=== PATIENT | female | born 1985 | race Caucasian/White ===

== ENCOUNTER 2016-06-29 09:19 | Inpatient (IN) | payer OTHER ==
[~2016-06-29] VITALS: Ht 144.8 cm; Wt 80.9 kg
[~2016-06-29 09:19] MED LIST: CLON0.1T12 PO; FLUO20SO PO; LACT10SO30 PO; LAMO200T PO; LORA-741 PO; NLT50 PO; OLAN-102 PO; RANI300C PO; [UNRECOGNIZED DRUG - CODE] PO
[2016-06-29] MEDS ORDERED: ACETAMINOPHEN 500 MG TAB PO STA (09:37)
[2016-06-29] MEDS ORDERED: LORAZEPAM 1 MG TAB PO STA (09:37)
[2016-06-29] MEDS ORDERED: SODIUM CHLORIDE 0.9% 1000ML 1,000 ML IV ONE (09:45)
[2016-06-29] MEDS ORDERED: ZYP20 PO ×2 (09:53)
[2016-06-29] MEDS ORDERED: NLT50 PO (09:53)
[2016-06-29] MEDS ORDERED: KPP/1000 PO (09:53)
--- NOTE | 2016-06-29 10:22 | EMERGENCY ROOM VISIT NOTE ---
ED Visit Note First contact with patient: 09:27 I have seen and examined this patient with Eric Ling and generally agree with the treatment plan as discussed. Current/Historical Medications Scheduled Fluoxetine Hcl (Fluoxetine Hcl), 10 ML PO DAILY Lactulose (Encephalopathy) (Lactulose), 30 ML PO BID Lamotrigine (Lamictal), 400 MG PO BID Levetiracetam (Keppra), 250 MG PO BID Levetiracetam (Keppra), 1,000 MG PO BID Naltrexone HCl (Naltrexone HCl), 100 MG PO QAM Olanzapine (Zyprexa), 10 MG PO QAM Olanzapine (Zyprexa), 20 MG PO HS Ranitidine Hcl (Ranitidine Hcl), 300 MG PO BID Scheduled PRN Lorazepam (Ativan), 0.5 MG PO Q6H PRN for Anxiety/Agitation Allergies Coded Allergies: Carbamazepine (Verified Allergy, Unknown, unknown, 06/29/16) Amoxicillin (Verified Adverse Reaction, Intermediate, vomiting, 06/29/16) Clavulanic Acid (Verified Adverse Reaction, Intermediate, vomiting, ) Lacosamide (Verified Adverse Reaction, Intermediate, nausea, 06/29/16) Vital Signs Date Time Temp Pulse Resp B/P Pulse Ox O2 Delivery O2 Flow Rate FiO2 06/29/16 09:51 94 Room Air 06/29/16 09:30 107 32 125/78 95 Room Air 06/29/16 09:22 38.0 118 18 87 Room Air Laboratory Results Test 06/29/16 09:35 06/29/16 09:37 Influenza Type A Antigen Neg for Influ A (NEG) Influenza Type B Antigen Neg for Influ B (NEG) Medications Administered Medications (Trade) Dose Ordered Sig/Cristel Route Start Time Stop Time Status Last Admin Dose Admin Acetaminophen (Tylenol Tab) 1,000 mg NOW STAT PO 06/29/16 09:37 06/29/16 09:39 DC 06/29/16 09:43 1,000 MG Lorazepam (Ativan Tab) 1 mg NOW STAT PO 06/29/16 09:37 06/29/16 09:39 DC 06/29/16 09:42 1 MG Departure Information Referrals Breanna Mendoza DO (PCP) Patient Instructions A Signature Page, My [facility]
[2016-06-29 10:31] LABS: BASO % 0.1 %; BASO ABS # 0.02 K/uL (0-0.2); COMPLETE YES; HEMATOCRIT 40.8 % (37-47); IG% 0.4 %; LYMPH % 5.3 %; LYMPH ABS # 1.02 K/uL (1.2-3.4); MEAN CELL VOLUME 90.9 fL (80-100); MEAN CORPUSCULAR HEMOGLOBIN 31.6 pg (25-34); MEAN CORPUSCULAR HGB CONC 34.8 g/dl (32-36); MEAN PLATELET VOLUME 10.2 fL (7.4-10.4); MONO % 12.9 %; NEUT % 81.3 %; PLATELET COUNT 232 K/uL (130-400); RED BLOOD COUNT 4.49 M/uL (4.2-5.4); WHITE BLOOD COUNT 19.11 K/uL (4.8-10.8)
[2016-06-29] MEDS ORDERED: ALBUT/IPRATROP 3MG/0.5MG NEB 3 ML VIAL INH STA (10:32)
[2016-06-29 10:48] LABS: BUN/CREATININE RATIO 13.3 (10-20); CREATININE 0.67 mg/dl (0.60-1.20); POTASSIUM 3.8 mmol/L (3.5-5.1)
[2016-06-29 10:51] LABS: ALB/GLOB RATIO 0.6 (0.9-2)
[2016-06-29 10:58] VITALS: PULSE 101; O2SAT 92
[2016-06-29] MEDS ORDERED: LORAZEPAM 2 MG/ML 1 ML VIAL IV STA (12:11)
--- NOTE | 2016-06-29 13:24 | DIAGNOSTIC IMAGING REPORT ---
CHEST 2 VIEWS ROUTINE HISTORY: cough. Flu like. Fever COMPARISON: Chest 12/03/2013. FINDINGS: There are low lung volumes. The heart remains enlarged. S-shaped scoliosis of the thoracolumbar spine. No pneumothorax. No definite pleural effusions. Right greater than left perihilar airspace opacities. IMPRESSION: Low lung volumes with cardiomegaly and bilateral perihilar airspace opacities, right greater than left. This could represent asymmetric pulmonary edema or a pneumonia. Electronically signed by: Prasanna Reese M.D. 06/29/2016 1:23 PM
[2016-06-29] MEDS ORDERED: LEVAQUIN 500MG / 100ML D5W IV ONE (13:45)
--- NOTE | 2016-06-29 14:05 | EMERGENCY ROOM VISIT NOTE ---
History First contact with patient: :27 Chief Complaint: ILLNESS Stated Complaint: BREATHING PROBLEMS History of Present Illness The patient is a 31 year old female who presents to the Emergency Room with complaints of flulike symptoms for the past one to 2 days. The patient is accompanied by her father who is the primary historian as the patient is essentially nonverbal. The patient has a history of intracranial bleed and seizures in the past, and has baseline intellectual deficit. The patient has been running a low-grade fever over the past 24 hours. She has had some persistent coughing the past 2 nights, with last night being much worse than previous. The patient has been eating and drinking as normal. She has not been able to take her medication the past 24 hours because she has had emesis. She does not have known exposure to disease, and has not taken anything over-the -counter for her symptoms. Review of Systems More than 10 systems were reviewed and otherwise negative with the exception of history of present illness. Past Medical/Surgical History Medical Problems: (1) Calculus Of Kidney (2) Mental Retardation Nos (3) Severe Intellectual Disabilities Family History Unknown-adopted Social History Smoking Status: Never Smoker Alcohol Use: none Drug Use: none Marital Status: single Housing Status: lives with family Current/Historical Medications Scheduled Fluoxetine Hcl (Fluoxetine Hcl), 10 ML PO DAILY Lactulose (Encephalopathy) (Lactulose), 30 ML PO BID Lamotrigine (Lamictal), 400 MG PO BID Levetiracetam (Keppra), 250 MG PO BID Levetiracetam (Keppra), 1,000 MG PO BID Naltrexone HCl (Naltrexone HCl), 100 MG PO QAM Olanzapine (Zyprexa), 10 MG PO QAM Olanzapine (Zyprexa), 20 MG PO HS Ranitidine Hcl (Ranitidine Hcl), 300 MG PO BID Scheduled PRN Lorazepam (Ativan), 0.5 MG PO Q6H PRN for Anxiety/Agitation Allergies Coded Allergies: Carbamazepine (Verified Allergy, Unknown, unknown, 06/29/16) Amoxicillin (Verified Adverse Reaction, Intermediate, vomiting, 06/29/16) Clavulanic Acid (Verified Adverse Reaction, Intermediate, vomiting, ) Lacosamide (Verified Adverse Reaction, Intermediate, nausea, 06/29/16) Physical Exam Vital Signs Date Time Temp Pulse Resp B/P Pulse Ox O2 Delivery O2 Flow Rate FiO2 12/29/16 13:15 112 20 131/72 93 Room Air 06/29/16 11:30 119 92 126/65 92 Room Air 06/29/16 10:58 101 20 92 Room Air 06/29/16 09:51 94 Room Air 06/29/16 09:30 107 32 125/78 95 Room Air 06/29/16 09:22 38.0 118 18 87 Room Air Physical Exam VITALS: Vitals are noted on the nurse's note and reviewed by myself. Vital signs with low-grade fever and tachypnea GENERAL: Fairly comfortable-appearing white female lying in her emergency department bed. She does not appear toxic or in acute distress. HEAD: Normocephalic atraumatic. HEART: Regular rate and rhythm without murmurs gallops or rubs. LUNGS: Clear to auscultation bilaterally without wheezes, rales or rhonchi. No retractions or accessory muscle use. ABDOMEN: Positive normal bowel sounds x 4. Soft, nontender, without masses or organomegaly. No guarding or rebound tenderness. MUSCULOSKELETAL: No muscle atrophy, erythema, or edema noted. Full range of motion without joint tenderness in all extremities. SKIN: The skin was without rashes, erythema, edema, or bruising. Capillary reflex less than 2 seconds. Medical Decision & Procedures ER Provider Diagnostic Interpretation: CHEST 2 VIEWS ROUTINE HISTORY: cough. Flu like. Fever COMPARISON: Chest 12/03/2013. FINDINGS: There are low lung volumes. The heart remains enlarged. S-shaped scoliosis of the thoracolumbar spine. No pneumothorax. No definite pleural effusions. Right greater than left perihilar airspace opacities. IMPRESSION: Low lung volumes with cardiomegaly and bilateral perihilar airspace opacities, right greater than left. This could represent asymmetric pulmonary edema or a pneumonia. Laboratory Results 06/29/16 10:07 Red Blood Count 4.49, Mean Corpuscular Volume 90.9, Mean Corpuscular Hemoglobin 31.6, Mean Corpuscular Hemoglobin Concent 34.8, Mean Platelet Volume 10.2, Neutrophils (%) (Auto) 81.3, Lymphocytes (%) (Auto) 5.3, Monocytes (%) (Auto) 12.9, Eosinophils (%) (Auto) 0.0, Basophils (%) (Auto) 0.1, Neutrophils # (Auto ) 15.53, Lymphocytes # (Auto) 1.02, Monocytes # (Auto) 2.46, Eosinophils # (Auto ) 0.00, Basophils # (Auto) 0.02 06/29/16 10:07 Test 06/29/16 09:35 06/29/16 10:07 06/29/16 10:08 Influenza Type A Antigen Neg for Influ A (NEG) Influenza Type B Antigen Neg for Influ B (NEG) White Blood Count 19.11 K/uL (4.8-10.8) Red Blood Count 4.49 M/uL (4.2-5.4) Hemoglobin 14.2 g/dL (12.0-16.0) Hematocrit 40.8 % (37-47) Mean Corpuscular Volume 90.9 fL (80-100) Mean Corpuscular Hemoglobin 31.6 pg (25-34) Mean Corpuscular Hemoglobin Concent 34.8 g/dl (32-36) Platelet Count 232 K/uL (130-400) Mean Platelet Volume 10.2 fL (7.4-10.4) Neutrophils (%) (Auto) 81.3 % Lymphocytes (%) (Auto) 5.3 % Monocytes (%) (Auto) 12.9 % Eosinophils (%) (Auto) 0.0 % Basophils (%) (Auto) 0.1 % Neutrophils # (Auto) 15.53 K/uL (1.4-6.5) Lymphocytes # (Auto) 1.02 K/uL (1.2-3.4) Monocytes # (Auto) 2.46 K/uL (0.11-0.59) Eosinophils # (Auto) 0.00 K/uL (0-0.5) Basophils # (Auto) 0.02 K/uL (0-0.2) RDW Standard Deviation 40.6 fL (36.4-46.3) RDW Coefficient of Variation 12.2 % (11.5-14.5) Immature Granulocyte % (Auto) 0.4 % Immature Granulocyte # (Auto) 0.08 K/uL (0.00-0.02) Anion Gap 8.0 mmol/L (3-11) Est Creatinine Clear Calc Drug Dose 107.6 ml/min Estimated GFR () 136.7 Estimated GFR (Non- 118.0 BUN/Creatinine Ratio 13.3 (10-20) Calcium Level 9.0 mg/dl (8.5-10.1) Total Bilirubin 0.3 mg/dl (0.2-1) Aspartate Amino Transf (AST/SGOT) 20 U/L (15-37) Alanine Aminotransferase (ALT/SGPT) 37 U/L (12-78) Alkaline Phosphatase 102 U/L (45-117) Total Protein 7.8 gm/dl (6.4-8.2) Albumin 3.0 gm/dl (3.4-5.0) Globulin 4.8 gm/dl (2.5-4.0) Albumin/Globulin Ratio 0.6 (0.9-2) Bedside Lactic Acid Venous 1.12 mmol/L (0.90-1.70) Medications Administered Medications (Trade) Dose Ordered Sig/Cristel Route Start Time Stop Time Status Last Admin Dose Admin Acetaminophen (Tylenol Tab) 1,000 mg NOW STAT PO 06/29/16 09:37 06/29/16 09:39 DC 06/29/16 09:43 1,000 MG Lorazepam 1 mg 1 mg NOW STAT PO 06/29/16 09:37 06/29/16 09:39 DC 06/29/16 09:42 1 MG Sodium Chloride (Nss 1000ml) 1,000 ml @ 999 mls/hr Q1H1M ONCE IV 06/29/16 09:45 06/29/16 10:45 DC 06/29/16 09:45 999 MLS/HR Albuterol/ Ipratropium (Duoneb) 12 ml ONE STAT INH 06/29/16 10:32 06/29/16 10:33 DC 06/29/16 10:58 12 ML Lorazepam (Ativan Inj) 1 mg NOW STAT IV 06/29/16 12:11 06/29/16 12:12 DC 06/29/16 12:22 1 MG Levofloxacin (Levaquin / D5W) 500 mg NOW ONCE IV 06/29/16 13:45 06/29/16 13:46 DC 06/29/16 13:41 500 MG ED Course Physical exam and history were performed. Nursing notes and EMR were reviewed. Patient appears to have fever and tachypnea. He does not appear overtly toxic on examination, but does not appear well either. She has limited intellectual function, and much of the history is provided by the family. Because of the history of IV access was established and labs were obtained. The patient was medicated and hydrated as above. I did give her Ativan prior to the blood draw and then also prior to her x-ray. The patient was able to complete a DuoNeb. The patient's blood work is as above and was reviewed. It has a markedly elevated white blood cell count of 19,000. She does not have an elevated lactic acid and blood cultures are pending. She is without significant anemia or gross electrolyte imbalance. Influenza swabs were negative. X-ray shows what may be a pneumonia, however the study is somewhat limited secondary to the patient's cooperation. She was started on IV Levaquin. The case was discussed with my attending physician, Dr. Shaw, who also independently evaluated the patient. Considering the patient has a markedly elevated white blood cell count, possible pneumonia, and baseline MHMR there is very significant concern for service/sepsis. She also has been saturating less than 90% on room air. She is much more comfortable after treatment on reevaluation, and was able to sleep comfortably in her ER bed. The patient does not appear stable for discharge home. The case was discussed with the on-call hospitalist, who agreed to evaluate the patient here in the department. Please see their dictation for further patient course, plan, and disposition. The chart was completed utilizing [employer] Speech Voice Recognition Software. Grammatical errors, random word insertions, pronoun errors, and incomplete sentences are an occasional consequence of this system due to software limitations, ambient noise, and hardware issues. Any formal questions or concerns about the content, text, or information contained within the body of this dictation should be directly addressed to the provider for clarification. . Medical Decision Differential diagnosis: Etiologies such as infections, reactive airway disease, pneumonia, pneumothorax , COPD, CHF, cardiac ischemia, pulmonary embolism, musculoskeletal, gastrointestinal, as well as others were entertained. Impression Primary Impression: SIRS (systemic inflammatory response syndrome) Additional Impression: Shortness of breath Departure Information Referrals Breanna Mendoza DO (PCP) Patient Instructions A Signature Page, My [facility]
[2016-06-29 14:32] VITALS: O2SAT 93; Ht 144.8 cm; Wt 80.9 kg
[2016-06-29] MEDS ORDERED: POLYETHYLENE (MIRALAX) 17 GM PACK PO PRN (14:45)
[2016-06-29] MEDS ORDERED: ONDANSETRON INJ 2 MG/ML 2 ML VIAL IV PRN (14:45)
[2016-06-29] MEDS ORDERED: ALUMINUM/MAGNESIUM/SIMETH (MAALOX MAX) 30 ML UDC PO PRN (14:45)
[2016-06-29] MEDS ORDERED: ACETAMINOPHEN IV 100 ML IV PRN (14:45)
[2016-06-29] MEDS ORDERED: MAGNESIUM HYDROXIDE SUSP 30 ML UDC PO PRN (14:45)
[2016-06-29] MEDS ORDERED: LORAZEPAM 2 MG/ML 1 ML VIAL IV PRN (15:15)
--- NOTE | 2016-06-29 15:36 | History and Physical ---
History & Physical Date & Time of Service: Jun 29, 2016 at 15:07 Chief Complaint: Breathing Problems Primary Care Physician: Breanna Mendoza DO History of Present Illness Source: parent, clinic records Ms. Sunshine is a 31 y/o non-verbal female with PMHx of Mental Retardation, Seizure Disorder, Traumatic Intracranial Bleed (2013), and Scoliosis who presents to the ED for complaints of flu-like symptoms and fever x 2 days. HPI solely obtained from father as patient is non-verbal. He states that this was a quick onset. Patient initially had nasal congestion and they thought she was developing a cold and used Mucinex that did not give relief. She started sounding more congested and lethargic. She has been diaphoretic with low-grade fevers at home. She has an associate cough that sounds productive however patient's coughing effort is poor and has not coughed much mucus out. She had intermittent episodes of brown colored nasal secretions and sputum. She has been eating and drinking okay last night. She was able to take her medications yesterday without any problems. She did have an episode of emesis this morning after trying to take her seizure medications. Per family she has had a seizure after missing doses in the past for illness. Last seizure possible in May but family says it is rare that these occur. Patient is incontinent of urine and feces. They do not recall sick contacts. In the ED, she was given a Duoneb treatment, hydrated with NSS 1 L bolus, and started on Levaquin 500 mg IV. Family reports that the breathing treatment appears to have broken up the congestion in her chest. She was medicated with IV Ativan is currently sedated however respirations adequate and airway remains intact. She will be admitted to the Med/Surg floor treatment of possible CAP. *Of note patient will need 1:1 observation due to confusion and delirium. She is ambulatory with assistance but has balance deficits. She requires assistance with ADLs. Oral pills need crushed and mixed in applesauce. Diet is regular with normal liquid consistency and uses straws. Social History Smoking Status: Never Smoker Drug Use: none Marital Status: single Housing status: lives with family Immunizations History of Influenza Vaccine: No History of Tetanus Vaccine?: Yes History of Pneumococcal: No History of Hepatitis B Vaccine: Unknown Multi-Drug Resistant Organisms History of MDRO: No Allergies Coded Allergies: Carbamazepine (Verified Allergy, Unknown, unknown, 06/29/16) Amoxicillin (Verified Adverse Reaction, Intermediate, vomiting, 06/29/16) Clavulanic Acid (Verified Adverse Reaction, Intermediate, vomiting, ) Lacosamide (Verified Adverse Reaction, Intermediate, nausea, 06/29/16) Home Medications Scheduled Fluoxetine Hcl (Fluoxetine Hcl), 10 ML PO DAILY Lactulose (Encephalopathy) (Lactulose), 30 ML PO BID Lamotrigine (Lamictal), 400 MG PO BID Levetiracetam (Keppra), 250 MG PO BID Levetiracetam (Keppra), 1,000 MG PO BID Naltrexone HCl (Naltrexone HCl), 100 MG PO QAM Olanzapine (Zyprexa), 10 MG PO QAM Olanzapine (Zyprexa), 20 MG PO HS Ranitidine Hcl (Ranitidine Hcl), 300 MG PO BID Scheduled PRN Lorazepam (Ativan), 0.5 MG PO Q6H PRN for Anxiety/Agitation Review of Systems ROS deferred as patient is non-verbal. Physical Exam Vital Signs Date Time Temp Pulse Resp B/P Pulse Ox O2 Delivery O2 Flow Rate FiO2 06/29/16 14:32 93 Room Air 06/29/16 13:15 112 20 131/72 93 Room Air 06/29/16 11:30 119 92 126/65 92 Room Air 06/29/16 10:58 101 20 92 Room Air 06/29/16 09:51 94 Room Air 06/29/16 09:30 107 32 125/78 95 Room Air 06/29/16 09:22 38.0 118 18 87 Room Air General Appearance: WD/WN, no apparent distress, + pertinent finding (sedated 2 /2 Ativan; harsh sounding respirations; leaning to R side 2/2 scoliosis; diaphoretic) Head: normocephalic, atraumatic Eyes: sclerae normal Neck: supple, no JVD, trachea midline Respiratory/Chest: no respiratory distress, no accessory muscle use, + decreased breath sounds, + rhonchi, + pertinent finding (audible rhonchi) Cardiovascular: regular rate, rhythm, + pertinent finding (unable to appreciate murmurs in setting of harsh respiratory sounds) Abdomen/GI: normal bowel sounds, soft Back: + pertinent finding (S shaped curvature of thoracic spine) Extremities/Musculoskelatal: normal inspection, normal capillary refill, no pedal edema Neurologic/Psych: + pertinent finding (sedated 2/2 Ativan) Skin: normal color, + diaphoresis Diagnostics Laboratory Results Results Past 24 Hours Test 06/29/16 09:35 06/29/16 10:07 06/29/16 10:08 Range/Units Influenza Type A Antigen Neg for Influ A NEG Influenza Type B Antigen Neg for Influ B NEG White Blood Count 19.11 4.8-10.8 K/uL Red Blood Count 4.49 4.2-5.4 M/uL Hemoglobin 14.2 12.0-16.0 g/dL Hematocrit 40.8 37-47 % Mean Corpuscular Volume 90.9 80-100 fL Mean Corpuscular Hemoglobin 31.6 25-34 pg Mean Corpuscular Hemoglobin Concent 34.8 32-36 g/dl Platelet Count 232 130-400 K/uL Mean Platelet Volume 10.2 7.4-10.4 fL Neutrophils (%) (Auto) 81.3 % Lymphocytes (%) (Auto) 5.3 % Monocytes (%) (Auto) 12.9 % Eosinophils (%) (Auto) 0.0 % Basophils (%) (Auto) 0.1 % Neutrophils # (Auto) 15.53 1.4-6.5 K/uL Lymphocytes # (Auto) 1.02 1.2-3.4 K/uL Monocytes # (Auto) 2.46 0.11-0.59 K/uL Eosinophils # (Auto) 0.00 0-0.5 K/uL Basophils # (Auto) 0.02 0-0.2 K/uL RDW Standard Deviation 40.6 36.4-46.3 fL RDW Coefficient of Variation 12.2 11.5-14.5 % Immature Granulocyte % (Auto) 0.4 % Immature Granulocyte # (Auto) 0.08 0.00-0.02 K/uL Sodium Level 138 136-145 mmol/L Potassium Level 3.8 3.5-5.1 mmol/L Chloride Level 102 98-107 mmol/L Carbon Dioxide Level 28 21-32 mmol/L Anion Gap 8.0 3-11 mmol/L Blood Urea Nitrogen 9 7-18 mg/dl Creatinine 0.67 0.60-1.20 mg/dl Est Creatinine Clear Calc Drug Dose 107.6 ml/min Estimated GFR () 136.7 Estimated GFR (Non- 118.0 BUN/Creatinine Ratio 13.3 10-20 Random Glucose 107 70-99 mg/dl Calcium Level 9.0 8.5-10.1 mg/dl Total Bilirubin 0.3 0.2-1 mg/dl Aspartate Amino Transf (AST/SGOT) 20 15-37 U/L Alanine Aminotransferase (ALT/SGPT) 37 12-78 U/L Alkaline Phosphatase 102 45-117 U/L Total Protein 7.8 6.4-8.2 gm/dl Albumin 3.0 3.4-5.0 gm/dl Globulin 4.8 2.5-4.0 gm/dl Albumin/Globulin Ratio 0.6 0.9-2 Bedside Lactic Acid Venous 1.12 0.90-1.70 mmol/L Microbiology Results 06/29/16 Blood Culture, Received Pending 06/29/16 Blood Culture, Received Pending Diagnostic Radiology CHEST 2 VIEWS ROUTINE HISTORY: cough. Flu like. Fever COMPARISON: Chest 12/03/2013. FINDINGS: There are low lung volumes. The heart remains enlarged. S-shaped scoliosis of the thoracolumbar spine. No pneumothorax. No definite pleural effusions. Right greater than left perihilar airspace opacities. IMPRESSION: Low lung volumes with cardiomegaly and bilateral perihilar airspace opacities, right greater than left. This could represent asymmetric pulmonary edema or a pneumonia. Electronically signed by: Prasanna Reese M.D. 06/29/2016 1:23 PM Impression Assessment and Plan Ms. Sunshine is a 31 y/o non-verbal female with PMHx of Mental Retardation, Seizure Disorder, Traumatic Intracranial Bleed (2013), and Scoliosis who presents to the ED for complaints of flu-like symptoms and fever x 2 days. In the ED, she was given a Duoneb treatment, hydrated with NSS 1 L bolus, and started on Levaquin 500 mg IV. Family reports that the breathing treatment appears to have broken up the congestion in her chest. She was medicated with IV Ativan is currently sedated however respirations adequate and airway remains intact. She will be admitted to the Med/Surg floor treatment of possible CAP. SIRS - Possible CAP have not Ruled Out UTI: - CXR - image and report reviewed - cardiomegaly; bilateral perihilar opacities R > L - pulmonary edema vs pneumonia - Levaquin 500 mg IV in ED - will start Levaquin 750 mg IV on 06/30/16 - Tylenol 1000 mg IV Q8H PRN - NSS 100 mL/hr - Duonebs QID and Q2H PRN - U/A and culture - CBC, BMP, Mag - trend leukocytosis and electrolytes Seizure Disorder: - Seizure precautions - Patient without medications this AM - will give partial dose now - Keppra IV 1000 mg x 1 dose as patient is sedated from Ativan - Will resume po Keppra 1250 mg BID starting at 2100 this evening if more alert - Lamictal 400 mg BID Mental Retardation: - 1:1 observation - Lorazepam 0.5 mg Q4H PRN - Fluoxetine Soln 20 mg/5 mL - 10 mL - Naltrexone 100 mg daily - Zyprexa 10 mg AM and 20 mg PM DVT Prophylaxis: - Lovenox 40 mg SC Code Status: - FULL RESUSCITATION PA Physician Supervision Note: I interviewed and examined the patient. Discussed with Chitra Ernst PAC and agree with findings and plan as documented in the note. Any exceptions or clarifications are listed here: None Pt is sedate from ativan but usually non verbal has SIRS like presentation presumedly from RLL pneumonia exam shows right lung crackles but not great effort due to sedation Will treat SIRS pneumonia, levaquin, also test urine as is incontinent and wears adult diaper did not get antiepileptic meds, due to vomiting, will attempt to give "catch up "dose to prevent seizure. Documented By: Riccardo Martinez Level of Care Med/Surg Advanced Directives Existing Advance Directive: No Existing Living Will: No Existing Power of Rn Lpn Lvn: No Resuscitation Status FULL RESUSCITATION VTE Prophylaxis VTE Risk Assessment Done? Y/N: Yes Risk Level: Moderate Given or contraindicated: Enoxaparin (Lovenox)SQ, T.E.D. Stockings, SCD's
[2016-06-29] MEDS: ALBUT/IPRATROP 3MG/0.5MG NEB 3 ML VIAL INH SCH (16:00)
[2016-06-29] MEDS ORDERED: LEVETIRACETAM IV 1,000 MG in DEXTROSE 5% 100ML 100 ML IV SCH (16:00)
[2016-06-29] MEDS: SODIUM CHLORIDE 0.9% 1000ML 1,000 ML IV SCH (16:24)
[2016-06-29 16:29] VITALS: BP 140/65; PULSE 115; TEMP 36.7; O2SAT 95
[2016-06-29] MEDS ORDERED: LORAZEPAM INJ 0.5 MG in SYRINGE 0.75 ML IV PRN (16:30)
[2016-06-29 17:02] LABS: PARTIAL THROMBOPLASTIN RATIO 1.5; PROTHROMBIN TIME (PATIENT) 11.2 SECONDS (9.0-12.0)
[2016-06-29] MEDS: OLANZAPINE 20 MG TAB PO SCH (20:49)
[2016-06-29] MEDS: LEVETIRACETAM 250 MG TAB PO SCH (20:49)
[2016-06-29] MEDS: LACTULOSE SYRUP 20 GM/30 ML UDC PO SCH (20:49)
[2016-06-29] MEDS: LEVETIRACETAM 500 MG TAB PO SCH (20:49)
[2016-06-29 21:30] VITALS: PULSE 102; O2SAT 94
[2016-06-29] MEDS: LORAZEPAM 0.5 MG TAB PO PRN (22:39)
[2016-06-29] MEDS: ENOXAPARIN 40 MG/0.4 ML SYR SQ SCH (22:40)
[2016-06-29 22:53] VITALS: BP 122/78; PULSE 235; TEMP 38; O2SAT 90
[2016-06-30] VITALS (7 sets, daily range): BP systolic 124–132; BP diastolic 78–83; PULSE 93–106; TEMP 36.2–37.4; O2SAT 82–92
[2016-06-30] MEDS: SODIUM CHLORIDE 0.9% 1000ML 1,000 ML IV SCH ×3 (01:51→20:45)
[2016-06-30 05:50] LABS: BASO % 0.3 %; BASO ABS # 0.04 K/uL (0-0.2); COMPLETE YES; HEMATOCRIT 39.7 % (37-47); IG% 0.8 %; LYMPH % 13.7 %; LYMPH ABS # 1.72 K/uL (1.2-3.4); MEAN CELL VOLUME 91.9 fL (80-100); MEAN CORPUSCULAR HEMOGLOBIN 31.7 pg (25-34); MEAN CORPUSCULAR HGB CONC 34.5 g/dl (32-36); MEAN PLATELET VOLUME 10.2 fL (7.4-10.4); NEUT % 70.2 %; PLATELET COUNT 202 K/uL (130-400); RED BLOOD COUNT 4.32 M/uL (4.2-5.4); WHITE BLOOD COUNT 12.54 K/uL (4.8-10.8)
[2016-06-30 06:10] LABS: BUN/CREATININE RATIO 11.6 (10-20); CALCIUM 7.9 mg/dl (8.5-10.1); CREATININE 0.58 mg/dl (0.60-1.20); MAGNESIUM 2.4 mg/dl (1.8-2.4); POTASSIUM 3.5 mmol/L (3.5-5.1)
[2016-06-30] MEDS: ALBUT/IPRATROP 3MG/0.5MG NEB 3 ML VIAL INH SCH ×4 (07:10→19:41)
[2016-06-30] MEDS: OLANZAPINE 20 MG TAB PO SCH ×2 (07:23→20:03)
[2016-06-30] MEDS: LACTULOSE SYRUP 20 GM/30 ML UDC PO SCH ×2 (07:23→20:00)
[2016-06-30] MEDS: LEVETIRACETAM 500 MG TAB PO SCH ×2 (07:23→20:03)
[2016-06-30] MEDS: NALTREXONE HCL 50 MG TAB PO SCH (07:24)
[2016-06-30] MEDS: LEVETIRACETAM 250 MG TAB PO SCH ×2 (07:24→20:03)
[2016-06-30] MEDS: FLUOXETINE HCL 20 MG/5 ML PO SCH (07:24)
[2016-06-30] MEDS: CLINDAMYCIN IV 600 MG in DEXTROSE 5% ADD-VANTAGE 50ML 50 ML IV SCH ×2 (08:39→17:02)
--- NOTE | 2016-06-30 09:40 | Clinical Documentation Query ---
ADELE Rutherford : CLINICAL DOCUMENTATION QUERIES QUERY 1 OF 3 Patient is a 31 year old female admitted with pneumonia. Documentation includes a history of mental retardation and coughing/choking with oral intake. She is being treated with IV Clindamycin and Levaquin, speech evaluation, aspiration precautions, 1:1 observation In your clinical opinion is this patient being managed for: (x ) Aspiration pneumonia ( ) Other explanation of clinical findings (Please Explain) ( ) Unable to determine (Please Define) ( ) Need to Discuss ( ) Not Agree The medical record reflects the following clinical findings, treatment, and risk factors. Clinical Indicators: Coughing/choking on dinner, mental retardation Treatment: Clindamycin, Levaquin, Speech evaluation, Aspiration precautions, 1:1 observation, requires feeding. Risk Factors: Mental retardation, non-verbal, unable to self feed. QUERY 2 OF 3 Documentation includes "mental retardation". Please qualify as able as this may affect severity of illness, associated risk of mortality, and ultimately DRG assignment. Thank you. In your clinical opinion is this patient being managed for: ( ) Mild mental retardation ( ) Moderate mental retardation ( ) Severe mental retardation ( ) Profound mental retardation ( ) Other explanation of clinical findings (Please Explain) ( ) Unable to determine (Please Define) ( ) Need to Discuss ( ) Not Agree The medical record reflects the following clinical findings, treatment, and risk factors. Clinical Indicators: As above Treatment: 1:1 observation, aspiration/fall precautions, feed Risk Factors: Congenital QUERY 3 OF 3 This is for informational/educational purposes Documentation includes "SIRS-Possible CAP have not ruled out UTI". ICD-10 coding does no longer recognizes SIRS due to an infectious source. Previously, this was essentially synonymous with sepsis but this is no longer the case. This information is simply to make you, the provider, aware that SIRS (de to any infectious source) is not amenable to indexing from the tabular list and therefore will not be coded. Please clarify and document your clinical opinion in the progress notes and discharge summary. Terms such as "probable", "suspected", "likely", "questionable", "possible", or "still to be ruled out" are acceptable. IF IN AGREEMENT, YOU MUST DOCUMENT ABOVE DIAGNOSTIC STATEMENT IN DAILY PROGRESS NOTES AND DISCHARGE SUMMARY. This document is not part of the patient's record. Thank You, Berhane Vargas, [place] [phone]
--- NOTE | 2016-06-30 11:23 | Progress Note ---
Subjective Date of Service: Jun 30, 2016. Subjective Pt evaluation today including: conversation w/ patient, conversation w/ family , chart review, lab review, review of studies, review of inpatient medication list Pain: none PO Intake: well Voiding: no voiding problems seen and examined , sleepy , arousabel mother at bed site who helps out to provide most of the informations as pat sleepy and not providing much, denied any pain, still has some cough, as per mother she did not see any aspiration issues but not sure,, on IVF and IV Abx Problem List Medical Problems: (1) Shortness of breath Status: Acute (2) SIRS (systemic inflammatory response syndrome) Status: Acute Review of Systems Constitutional: No chills, No fatigue, No fever, No problem reported, No see HPI, No sweats, No weakness, No weight loss Eyes: No diplopia, No discharge, No eye pain, No problem reported, No redness, No see HPI, No worsening of vision ENT: No dental problems, No hearing loss, No nasal symptoms, No problem reported, No see HPI, No sore throat, No tinnitus, No trouble swallowing, No unusual epistaxis Respiratory: + cough Cardiac: No PND, No chest pain, No claudication, No edema, No orthopnea, No palpitations, No problem reported, No see HPI Abdomen: No GI bleeding, No constipation, No diarrhea, No nausea, No pain, No problem reported, No see HPI, No vomiting Musculoskeletal: No calf pain, No joint pain, No muscle pain, No problem reported, No see HPI, No swelling Neurologic: No balance problems, No memory loss, No numbness/tingling, No paralysis, No problem reported, No see HPI, No vertigo, No weakness Medications Current Inpatient Medications Medications (Trade) Dose Ordered Sig/Cristel Route Start Time Stop Time Status Last Admin Dose Admin Enoxaparin Sodium (Lovenox Inj) 40 mg QPM SQ 06/29/16 21:00 07/29/16 20:59 06/29/16 22:40 40 MG Al Hydrox/Mg Hydrox/Simethicone (Maalox Max Susp) 15 ml Q4H PRN PO 06/29/16 14:45 07/29/16 14:44 Magnesium Hydroxide (Milk Of Magnesia Susp) 30 ml Q6H PRN PO 06/29/16 14:45 07/29/16 14:44 Polyethylene (Miralax Powder Packet) 17 gm DAILY PRN PO 06/29/16 14:45 07/29/16 14:44 Ondansetron HCl 4 mg 4 mg Q6H PRN IV 06/29/16 14:45 07/29/16 14:44 Levofloxacin 750 mg/Prmx 150 ml @ 100 mls/hr DAILY@1400 IV 06/30/16 14:00 07/08/16 15:29 Acetaminophen 100 ml @ 400 mls/hr Q8H PRN IV 06/29/16 14:45 07/29/16 14:44 06/29/16 22:39 400 MLS/HR Sodium Chloride (Nss 1000ml) 1,000 ml @ 100 mls/hr Q10H IV 06/29/16 14:45 07/29/16 14:44 06/30/16 08:40 100 MLS/HR Albuterol/ Ipratropium (Duoneb) 3 ml QIDR INH 06/29/16 16:00 07/29/16 15:59 06/30/16 11:03 3 ML Levetiracetam (Keppra Tab) 1,000 mg BID PO 06/29/16 20:00 07/29/16 20:59 06/30/16 07:23 1,000 MG Levetiracetam (Keppra Tab) 250 mg BID PO 06/29/16 20:00 07/29/16 20:59 06/30/16 07:24 250 MG Lorazepam (Ativan Tab) 0.5 mg Q6H PRN PO 06/29/16 15:00 07/29/16 14:59 06/29/16 22:39 0.5 MG Olanzapine (Zyprexa Tab) 10 mg QAM PO 06/30/16 08:00 07/30/16 08:59 06/30/16 07:23 10 MG Olanzapine (Zyprexa Tab) 20 mg HS PO 06/29/16 21:00 07/29/16 20:59 06/29/16 20:49 20 MG Lactulose (Chronulac Syrup) 20 gm BID PO 06/29/16 20:00 07/29/16 20:59 06/30/16 07:23 20 GM Lamotrigine (Lamictal Tab) 400 mg BID PO 06/29/16 20:00 07/29/16 20:59 06/30/16 07:23 400 MG Naltrexone HCl (Naltrexone) 100 mg QAM PO 06/30/16 08:00 07/30/16 08:59 06/30/16 07:24 100 MG Fluoxetine HCl (Prozac Soln) 40 mg QAM PO 06/30/16 08:00 07/30/16 08:59 06/30/16 07:24 40 MG Lorazepam 0.5 mg 0.5 mg Q4H PRN IV 06/29/16 15:15 07/29/16 15:14 Lorazepam 0.5 mg/ Syringe 1 ml @ 1 mls/min Q4H PRN IV 06/29/16 16:30 07/29/16 16:29 Clindamycin Phosphate/Dextrose (Cleocin Iv/ Dextrose Add-[place] 50ML) 54 ml @ 100 mls/hr Q8H IV 06/30/16 08:00 07/10/16 07:59 06/30/16 08:39 100 MLS/HR Objective Vital Signs Date Time Temp Pulse Resp B/P Pulse Ox O2 Delivery O2 Flow Rate FiO2 06/30/16 08:04 Room Air 06/30/16 07:13 104 20 92 Room Air 06/30/16 07:12 36.8 106 18 131/83 92 Room Air 06/30/16 00:00 Room Air 06/29/16 22:53 38.0 235 20 122/78 90 Room Air 06/29/16 21:30 102 22 94 Room Air 06/29/16 20:00 Room Air 06/29/16 16:29 36.7 115 15 140/65 95 Room Air 06/29/16 15:07 36.8 101 18 90/74 92 06/29/16 14:32 93 Room Air 06/29/16 13:15 112 20 131/72 93 Room Air 06/29/16 11:30 119 92 126/65 92 Room Air 06/29/16 10:58 101 20 92 Room Air Physical Exam General Appearance: no apparent distress, + obese Eyes: normal inspection ENT: + pertinent finding (short and wide neck) Neck: supple, no adenopathy, no JVD, no carotid bruits Respiratory/Chest: chest non-tender, lungs clear, normal breath sounds, no respiratory distress Cardiovascular: regular rate, rhythm, no edema, no gallop, no JVD, no murmur Abdomen: normal bowel sounds, non tender, soft Extremities: normal range of motion, non-tender, no pedal edema, no calf tenderness Neurologic/Psychiatric: no motor/sensory deficits Skin: normal color Laboratory Results Last 24 Hours Test 06/30/16 05:25 White Blood Count 12.54 K/uL Red Blood Count 4.32 M/uL Hemoglobin 13.7 g/dL Hematocrit 39.7 % Mean Corpuscular Volume 91.9 fL Mean Corpuscular Hemoglobin 31.7 pg Mean Corpuscular Hemoglobin Concent 34.5 g/dl Platelet Count 202 K/uL Mean Platelet Volume 10.2 fL Neutrophils (%) (Auto) 70.2 % Lymphocytes (%) (Auto) 13.7 % Monocytes (%) (Auto) 15.0 % Eosinophils (%) (Auto) 0.0 % Basophils (%) (Auto) 0.3 % Neutrophils # (Auto) 8.80 K/uL Lymphocytes # (Auto) 1.72 K/uL Monocytes # (Auto) 1.88 K/uL Eosinophils # (Auto) 0.00 K/uL Basophils # (Auto) 0.04 K/uL RDW Standard Deviation 42.1 fL RDW Coefficient of Variation 12.5 % Immature Granulocyte % (Auto) 0.8 % Immature Granulocyte # (Auto) 0.10 K/uL Sodium Level 141 mmol/L Potassium Level 3.5 mmol/L Chloride Level 108 mmol/L Carbon Dioxide Level 24 mmol/L Anion Gap 9.0 mmol/L Blood Urea Nitrogen 7 mg/dl Creatinine 0.58 mg/dl Est Creatinine Clear Calc Drug Dose 124.3 ml/min Estimated GFR () 143.4 Estimated GFR (Non- 123.7 BUN/Creatinine Ratio 11.6 Random Glucose 88 mg/dl Calcium Level 7.9 mg/dl Magnesium Level 2.4 mg/dl Assessment and Plan SIRS - Possible CAP have not Ruled Out UTI: CAP, poss of aspiration pneumonia can be considered w her neurological and mental capacity baseline - CXR - image and report reviewed - cardiomegaly; bilateral perihilar opacities R > L - pulmonary edema vs pneumonia - cont Levaquin 750 mg IV and add Clindamycin to cover aspiration pneumonia -Speech and swallowing evaluation -Aspiration precaution - Tylenol 1000 mg IV Q8H PRN - NSS 100 mL/hr - DuoNeb QID and Q2H PRN -recheck labs Possible UTI - U/A and culture pending Seizure Disorder: - Seizure precautions - Patient without medications this AM - will give partial dose now - Keppra IV 1000 mg x 1 dose as patient is sedated from Ativan - Will resume po Keppra 1250 mg BID starting at 2100 this evening if more alert - Lamictal 400 mg BID Mental Retardation: - 1:1 observation - Lorazepam 0.5 mg Q4H PRN - Fluoxetine Soln 20 mg/5 mL - 10 mL - Naltrexone 100 mg daily - Zyprexa 10 mg AM and 20 mg PM DVT Prophylaxis: - Lovenox 40 mg SC Code Status: - FULL RESUSCITATION Plan: as aboe Abx swallowing and speech eval IVF DW mother in detail Dw nurse poss dc in couple days Continued [facility] stay due to: multiple IV medications needed, other (not ready yet) Discharge planning: home
[2016-06-30] MEDS ORDERED: LEVOFLOXACIN / D5W 750 MG in PREMIXED IN D5W 150 ML IV SCH (14:00)
[2016-06-30] MEDS: ENOXAPARIN 40 MG/0.4 ML SYR SQ SCH (20:05)
[2016-06-30] MEDS ORDERED: NURSING VERBAL MED ORDER ONE (21:30)
[2016-06-30] MEDS ORDERED: CEFTRIAXONE SOD IM 1,000 MG in SYRINGE 0 ML IM SCH (22:00)
[2016-07-01] VITALS (7 sets, daily range): BP systolic 116; BP diastolic 75; PULSE 97–107; TEMP 37; O2SAT 90–95
[2016-07-01] MEDS: ALBUT/IPRATROP 3MG/0.5MG NEB 3 ML VIAL INH SCH ×4 (07:26→19:34)
[2016-07-01] MEDS: LACTULOSE SYRUP 20 GM/30 ML UDC PO SCH ×2 (08:39→20:56)
[2016-07-01] MEDS: NALTREXONE HCL 50 MG TAB PO SCH (08:39)
[2016-07-01] MEDS: OLANZAPINE 20 MG TAB PO SCH ×2 (08:39→20:52)
[2016-07-01] MEDS: LEVETIRACETAM 250 MG TAB PO SCH ×2 (08:40→20:54)
[2016-07-01] MEDS: LEVETIRACETAM 500 MG TAB PO SCH ×2 (08:40→20:53)
[2016-07-01] MEDS: FLUOXETINE HCL 20 MG/5 ML PO SCH (08:41)
[2016-07-01 12:48] LABS: URINE APPEARANCE CLEAR (CLEAR); URINE BILIRUBIN NEG (NEG); URINE COLOR YELLOW; URINE EPITHELIAL CELL AUTO >30 /lpf (0-5); URINE NITRITE NEG (NEG); URINE SPECIFIC GRAVITY 1.026 (1.000-1.030); UROBILINOGEN NEG (NEG); ZZURINE CULT IF INDIC CATH YES
[2016-07-01 12:56] LABS: MANUAL MICROSCOPIC REQUIRED? NO; REVIEW REQ? YES
[2016-07-01] MEDS: LEVOFLOXACIN 500 MG TAB PO SCH (15:24)
--- NOTE | 2016-07-01 15:28 | Progress Note ---
Subjective Date of Service: Jul 01, 2016. Subjective Pt evaluation today including: conversation w/ patient, chart review, review of studies, review of inpatient medication list Pain: none PO Intake: npo still seen and examined ,awake and alert, afebrile, can not answer all the questions asks for food, no more N or V, afebrile, looks and feels better, , still NPO on IVF seen w the nurse Problem List Medical Problems: (1) Shortness of breath Status: Acute (2) SIRS (systemic inflammatory response syndrome) Status: Acute Review of Systems Constitutional: + fever, + see HPI Eyes: + see HPI Respiratory: + see HPI Cardiac: + see HPI Abdomen: + see HPI Musculoskeletal: + see HPI Female : + see HPI Neurologic: + see HPI Objective Vital Signs Date Time Temp Pulse Resp B/P Pulse Ox O2 Delivery O2 Flow Rate FiO2 07/01/16 07:26 105 20 92 Room Air 07/01/16 06:53 37.0 107 20 116/75 95 Room Air 06/30/16 23:59 Room Air 06/30/16 23:25 37.4 93 22 124/80 90 Room Air 06/30/16 20:00 Room Air 06/30/16 19:41 99 20 90 Room Air 06/30/16 16:11 Room Air 06/30/16 15:36 99 20 90 Room Air 06/30/16 14:54 36.2 106 16 132/78 92 Room Air 06/30/16 11:03 100 20 89 Room Air Physical Exam General Appearance: no apparent distress ENT: normal ENT inspection, pharynx normal Neck: supple, no JVD, no carotid bruits, + pertinent finding (short and wide neck) Respiratory/Chest: chest non-tender, lungs clear, normal breath sounds, no respiratory distress Cardiovascular: regular rate, rhythm, no edema, no gallop, no JVD Abdomen: normal bowel sounds, non tender, soft, no organomegaly Extremities: normal range of motion, non-tender, normal inspection, no pedal edema Neurologic/Psychiatric: no motor/sensory deficits, alert Assessment and Plan SIRS - Possible CAP have not Ruled Out UTI:, imporving CAP, poss of aspiration pneumonia can be considered w her neurological and mental capacity baseline - CXR - image and report reviewed - cardiomegaly; bilateral perihilar opacities R > L - pulmonary edema vs pneumonia - change Abx to po and DC Rocephin and needs clinda to cover aspiration pneumonia -Speech and swallowing evaluation input appreciated and Dw them -Aspiration precaution - DuoNeb QID and Q2H PRN -recheck labs Vomiting, improved restart on PO diet Possible UTI - U/A and culture still pending Seizure Disorder: - Seizure precautions - Patient without medications this AM - will give partial dose now - Keppra IV 1000 mg x 1 dose as patient is sedated from Ativan - Will resume po Keppra 1250 mg BID starting at 2100 this evening if more alert - Lamictal 400 mg BID Mental Retardation: - 1:1 observation - Lorazepam 0.5 mg Q4H PRN - Fluoxetine Soln 20 mg/5 mL - 10 mL - Naltrexone 100 mg daily - Zyprexa 10 mg AM and 20 mg PM DVT Prophylaxis: - Lovenox 40 mg SC Code Status: - FULL RESUSCITATION Plan: as above Abx swallowing and speech eval IVF Dw nurse poss dc in couple days called mother and updated her Continued [facility] stay due to: multiple IV medications needed, other (not ready yet) Discharge planning: home
[2016-07-01] MEDS: CLINDAMYCIN HCL 150 MG CAP PO SCH (18:08)
[2016-07-01] MEDS: ENOXAPARIN 40 MG/0.4 ML SYR SQ SCH (20:56)
[2016-07-02] VITALS (9 sets, daily range): BP systolic 106–132; BP diastolic 69–98; PULSE 96–106; TEMP 36.6–37.4; O2SAT 94–98
[2016-07-02] MEDS: CLINDAMYCIN HCL 150 MG CAP PO SCH ×4 (00:27→17:53)
[2016-07-02] MEDS: ALBUT/IPRATROP 3MG/0.5MG NEB 3 ML VIAL INH SCH ×4 (07:24→19:04)
[2016-07-02] MEDS: LACTULOSE SYRUP 20 GM/30 ML UDC PO SCH ×2 (08:00→20:52)
[2016-07-02] MEDS: NALTREXONE HCL 50 MG TAB PO SCH (08:05)
[2016-07-02] MEDS: LEVETIRACETAM 500 MG TAB PO SCH ×2 (08:06→20:50)
[2016-07-02] MEDS: LEVETIRACETAM 250 MG TAB PO SCH ×2 (08:06→20:50)
[2016-07-02] MEDS: FLUOXETINE HCL 20 MG/5 ML PO SCH (08:06)
[2016-07-02] MEDS: OLANZAPINE 20 MG TAB PO SCH ×2 (08:07→20:51)
[2016-07-02 08:29] LABS: HEMATOCRIT 39.2 % (37-47); MEAN CELL VOLUME 92.5 fL (80-100); MEAN CORPUSCULAR HEMOGLOBIN 32.5 pg (25-34); MEAN CORPUSCULAR HGB CONC 35.2 g/dl (32-36); MEAN PLATELET VOLUME 9.6 fL (7.4-10.4); PLATELET COUNT 258 K/uL (130-400); RED BLOOD COUNT 4.24 M/uL (4.2-5.4); WHITE BLOOD COUNT 11.72 K/uL (4.8-10.8)
[2016-07-02 09:16] LABS: CREATININE 0.56 mg/dl (0.60-1.20)
--- NOTE | 2016-07-02 09:57 | Hospitalist Progress Note ---
Hospitalist Progress Note Date of Service Jul 02, 2016. Subjective Pt evaluation today including: conversation w/ patient, physical exam, chart review, lab review, review of studies, review of inpatient medication list Pt states she feels "ehh." Is coughing, can't really tell me much else. Constitutional: No fever Respiratory: + cough All Other Systems: Reviewed and Negative (and unobtainable) Objective Vital Signs Date Time Temp Pulse Resp B/P Pulse Ox O2 Delivery O2 Flow Rate FiO2 07/02/16 08:30 97 Room Air 07/02/16 07:53 36.6 106 18 128/88 97 Room Air 07/02/16 07:24 97 20 95 Room Air 07/01/16 23:59 Room Air 07/01/16 23:12 97 30 93 07/01/16 19:34 98 20 95 Room Air 07/01/16 16:00 Room Air 07/01/16 14:56 105 20 95 Room Air 07/01/16 11:30 98 20 90 Room Air Physical Exam General Appearance: WD/WN, no apparent distress Eyes: normal inspection, sclerae normal ENT: pharynx normal Neck: trachea midline Respiratory/Chest: + decreased breath sounds (at bases R>L, otherwise clear) Cardiovascular: regular rate, rhythm, no edema, no gallop, no murmur Abdomen: normal bowel sounds, non tender, soft Extremities: non-tender, normal inspection, no pedal edema, no calf tenderness Neurologic/Psychiatric: alert Skin: warm/dry, no rash Lymphatic: no adenopathy Laboratory Results Last 24 Hours Test 07/02/16 08:19 White Blood Count 11.72 K/uL Red Blood Count 4.24 M/uL Hemoglobin 13.8 g/dL Hematocrit 39.2 % Mean Corpuscular Volume 92.5 fL Mean Corpuscular Hemoglobin 32.5 pg Mean Corpuscular Hemoglobin Concent 35.2 g/dl RDW Standard Deviation 42.4 fL RDW Coefficient of Variation 12.6 % Platelet Count 258 K/uL Mean Platelet Volume 9.6 fL Nucleated RBC Absolute Count (auto) 0.03 K/uL Nucleated Red Blood Cells % 0.3 % Creatinine 0.56 mg/dl Est Creatinine Clear Calc Drug Dose 128.8 ml/min Estimated GFR () 145.0 Estimated GFR (Non- 125.1 Assessment and Plan Ms. Sunshine is a 31 y/o non-verbal female with PMHx of Mental Retardation, Seizure Disorder, Traumatic Intracranial Bleed (2013), and Scoliosis who presents to the ED for complaints of flu-like symptoms and fever x 2 days. In the ED, she was given a Duoneb treatment, hydrated with NSS 1 L bolus, and started on Levaquin 500 mg IV. Family reports that the breathing treatment appears to have broken up the congestion in her chest. She was medicated with IV Ativan is currently sedated however respirations adequate and airway remains intact. She will be admitted to the Med/Surg floor treatment of RLL CAP. SIRS,CAP, poss of aspiration pneumonia can be considered w her neurological and mental capacity baseline. WBC count trending downward, oxygenation improving - CXR - image and report reviewed - cardiomegaly; bilateral perihilar opacities R > L - pulmonary edema vs pneumonia - change Abx to po and DC Rocephin and needs clinda to cover aspiration pneumonia -Speech and swallowing evaluation input appreciated -Aspiration precaution - DuoNeb QID and Q2H PRN -recheck labs -encourage po liquids through Mom as discussed on phone for mild tachycardia, mild dehydration as has no IV Vomiting, improved restarted on PO diet and tolerating Possible UTI- UA seems like dirty sample, don't expect UR cx to grow anything out - U/A and culture still pending Seizure Disorder: - Seizure precautions - Patient without medications the AM of admisison - Keppra IV 1000 mg x 1 dose on admission - continue po Keppra 1250 mg BID - Lamictal 400 mg BID Mental Retardation: - 1:1 observation - Lorazepam 0.5 mg Q4H PRN - Fluoxetine Soln 20 mg/5 mL - 10 mL - Naltrexone 100 mg daily - Zyprexa 10 mg AM and 20 mg PM DVT Prophylaxis: - Lovenox 40 mg SC Code Status: - FULL RESUSCITATION
[2016-07-02] MEDS: LEVOFLOXACIN 500 MG TAB PO SCH (11:20)
[2016-07-02] MEDS: LORAZEPAM 0.5 MG TAB PO PRN (20:48)
[2016-07-02] MEDS: ENOXAPARIN 40 MG/0.4 ML SYR SQ SCH (20:56)
[2016-07-03] MEDS: CLINDAMYCIN HCL 150 MG CAP PO SCH ×3 (00:11→12:18)
[2016-07-03 06:12] LABS: BASO % 0.7 %; BASO ABS # 0.07 K/uL (0-0.2); COMPLETE YES; EOS % 0.1 %; HEMATOCRIT 39.7 % (37-47); IG% 4.7 %; LYMPH % 21.5 %; LYMPH ABS # 2.04 K/uL (1.2-3.4); MEAN CORPUSCULAR HEMOGLOBIN 31.9 pg (25-34); MEAN CORPUSCULAR HGB CONC 34.3 g/dl (32-36); MEAN PLATELET VOLUME 9.8 fL (7.4-10.4); MONO % 10.3 %; NEUT % 62.7 %; PLATELET COUNT 240 K/uL (130-400); RED BLOOD COUNT 4.27 M/uL (4.2-5.4); WHITE BLOOD COUNT 9.51 K/uL (4.8-10.8)
[2016-07-03 06:44] LABS: BUN/CREATININE RATIO 14.7 (10-20); CALCIUM 9.1 mg/dl (8.5-10.1); CREATININE 0.59 mg/dl (0.60-1.20); MAGNESIUM 2.1 mg/dl (1.8-2.4); POTASSIUM 3.3 mmol/L (3.5-5.1)
[2016-07-03] MEDS ORDERED: POTASSIUM CHLORIDE 10 MEQ TABCR PO STA (07:10)
[2016-07-03 07:43] VITALS: BP 105/72; PULSE 80; TEMP 36.9; O2SAT 94
[2016-07-03] MEDS: ALBUT/IPRATROP 3MG/0.5MG NEB 3 ML VIAL INH SCH ×2 (07:58→10:55)
[2016-07-03] MEDS: LACTULOSE SYRUP 20 GM/30 ML UDC PO SCH (08:00)
[2016-07-03] MEDS: OLANZAPINE 20 MG TAB PO SCH (08:27)
[2016-07-03] MEDS: LEVETIRACETAM 500 MG TAB PO SCH (08:27)
[2016-07-03] MEDS: NALTREXONE HCL 50 MG TAB PO SCH (08:28)
[2016-07-03] MEDS: LEVETIRACETAM 250 MG TAB PO SCH (08:28)
[2016-07-03] MEDS: FLUOXETINE HCL 20 MG/5 ML PO SCH (08:29)
[2016-07-03 08:30] VITALS: O2SAT 94
[2016-07-03 08:41] VITALS: PULSE 78; O2SAT 90
--- NOTE | 2016-07-03 10:10 | DIAGNOSTIC IMAGING REPORT ---
CHEST ONE VIEW PORTABLE CLINICAL HISTORY: Follow-up pneumonia. COMPARISON STUDY: Chest radiograph June 29, 2016. FINDINGS: There is no pneumothorax or pleural effusion. Moderate S-shaped scoliosis of the thoracolumbar spine is again noted. Cardiomediastinal silhouette is unremarkable. Bilateral opacities and interstitial thickening have improved since exam of June 29, 2016. IMPRESSION: Interval improvement of bilateral airspace opacities and interstitial thickening since prior exam. Electronically signed by: Ten Arellano M.D. 07/03/2016 10:09 AM
[2016-07-03 10:55] VITALS: PULSE 104; O2SAT 97
[2016-07-03] MEDS: LEVOFLOXACIN 500 MG TAB PO SCH (12:18)
[2016-07-03] MEDS ORDERED: CLIN300C2 PO ×2 (12:39→12:45)
[2016-07-03] MEDS ORDERED: LVQ500 PO (12:39)
--- NOTE | 2016-07-03 12:55 | Discharge Instructions ---
Discharge Instructions Admission Reason for Admission: Pneumonia, Sirs Discharge Discharge Diagnosis / Problem: Pneumonia Discharge Goals Goal(s): Decrease discomfort, Improve function, Learn about illness, Diagnostic testing, Therapeutic intervention Activity Recommendations Activity Limitations: resume your previous activity Lifting Limitations: gradually increase as tolerated . Instructions / Follow-Up Instructions / Follow-Up Pneumonia: -Take Clindamycin 300 mg by mouth every 8 hours until entire course of medication is completed. -Take Levaquin 500 mg by mouth once per day until entire course of medication is completed. You may resume all regular home medications as prescribed to you. You have a follow up appointment with Dr. Mendoza on SundayJuly 10 at 10:20 am. Please follow-up/keep all of your subspecialty appointments. Current Hospital Diet Patient's current hospital diet: Regular Diet Discharge Diet Recommended Diet: Regular Diet Diet Texture: Dental Soft (bite-sized) Procedures Procedures Performed: 1. CXR Pending Studies Studies pending at discharge: no Laboratory Results Last 24 Hours Test 07/03/16 05:22 White Blood Count 9.51 K/uL Red Blood Count 4.27 M/uL Hemoglobin 13.6 g/dL Hematocrit 39.7 % Mean Corpuscular Volume 93.0 fL Mean Corpuscular Hemoglobin 31.9 pg Mean Corpuscular Hemoglobin Concent 34.3 g/dl Platelet Count 240 K/uL Mean Platelet Volume 9.8 fL Neutrophils (%) (Auto) 62.7 % Lymphocytes (%) (Auto) 21.5 % Monocytes (%) (Auto) 10.3 % Eosinophils (%) (Auto) 0.1 % Basophils (%) (Auto) 0.7 % Neutrophils # (Auto) 5.96 K/uL Lymphocytes # (Auto) 2.04 K/uL Monocytes # (Auto) 0.98 K/uL Eosinophils # (Auto) 0.01 K/uL Basophils # (Auto) 0.07 K/uL RDW Standard Deviation 42.0 fL RDW Coefficient of Variation 12.5 % Immature Granulocyte % (Auto) 4.7 % Immature Granulocyte # (Auto) 0.45 K/uL Nucleated RBC Absolute Count (auto) 0.03 K/uL Nucleated Red Blood Cells % 0.3 % Sodium Level 144 mmol/L Potassium Level 3.3 mmol/L Chloride Level 105 mmol/L Carbon Dioxide Level 29 mmol/L Anion Gap 10.0 mmol/L Blood Urea Nitrogen 9 mg/dl Creatinine 0.59 mg/dl Est Creatinine Clear Calc Drug Dose 122.2 ml/min Estimated GFR () 142.5 Estimated GFR (Non- 123.0 BUN/Creatinine Ratio 14.7 Random Glucose 80 mg/dl Calcium Level 9.1 mg/dl Magnesium Level 2.1 mg/dl Medical Emergencies . Who to Call and When: Medical Emergencies: If at any time you feel your situation is an emergency, please call 911 immediately. . Non-Emergent Contact Non-Emergency issues call your: Primary Care Provider Call Non-Emergent contact if: you have a fever, temperature is above 100.5, your pain is unusual for you, you have any medication questions . . "Provider Documentation" section prepared by Lyndsey Ellis. VTE Core Measure Inpt VTE Proph given/why not?: Enoxaparin (Lovenox)SQ, T.E.D. Stockings, SCD's
--- NOTE | 2016-07-03 13:06 | Discharge Summary ---
Discharge Summary Admission Date: Jun 29, 2016 at 14:45 Discharge Date: Jul 03, 2016 Discharge Disposition: Home Principal Diagnosis: Pneumonia Immunizations: Have You Had Influenza Vaccine: No History of Tetanus Vaccine?: Yes History of Pneumococcal: No History of Hepatitis B Vaccine: Unknown Procedures: 1. CHEST ONE VIEW PORTABLE- repeated for discharge CLINICAL HISTORY: Follow-up pneumonia. COMPARISON STUDY: Chest radiograph June 29, 2016. FINDINGS: There is no pneumothorax or pleural effusion. Moderate S-shaped scoliosis of the thoracolumbar spine is again noted. Cardiomediastinal silhouette is unremarkable. Bilateral opacities and interstitial thickening have improved since exam of June 29, 2016. IMPRESSION: Interval improvement of bilateral airspace opacities and interstitial thickening since prior exam. Electronically signed by: Ten Arellano M.D. 07/03/2016 10:09 AM The status of this report is Signed. Draft = Not yet reviewed or approved by Radiologist. Signed = Reviewed and approved by Radiologist. 2. CHEST 2 VIEWS ROUTINE- at admission HISTORY: cough. Flu like. Fever COMPARISON: Chest 12/03/2013. FINDINGS: There are low lung volumes. The heart remains enlarged. S-shaped scoliosis of the thoracolumbar spine. No pneumothorax. No definite pleural effusions. Right greater than left perihilar airspace opacities. IMPRESSION: Low lung volumes with cardiomegaly and bilateral perihilar airspace opacities, right greater than left. This could represent asymmetric pulmonary edema or a pneumonia. Electronically signed by: Prasanna Reese M.D. 06/29/2016 1:23 PM The status of this report is Signed. Draft = Not yet reviewed or approved by Radiologist. Signed = Reviewed and approved by Radiologist. (Lyndsey Ellis, JESSICAC) Medication Reconciliation New Medications: Clindamycin Hcl (Cleocin) 300 Mg Cap 300 MG PO TID for 8 Days, #24 CAP Levofloxacin (Levofloxacin) 500 Mg Tab 500 MG PO DAILY@11 for 7 Days, #7 TAB Continued Medications: Fluoxetine Hcl (Fluoxetine Hcl) 20 Mg/5 Ml Bridie 10 ML PO DAILY Lactulose (Encephalopathy) (Lactulose) 10 Gm/15 Ml Birdie 30 ML PO BID, #1800 Lamotrigine (Lamictal) 200 Mg Tab 400 MG PO BID, TAB Levetiracetam (Keppra) 250 Mg Tab 250 MG PO BID Levetiracetam (Keppra) 1,000 Mg Tab 1000 MG PO BID, TAB Lorazepam (Ativan) 0.5 Mg Tab 0.5 MG PO Q6H PRN for Anxiety/Agitation, TAB Naltrexone HCl (Naltrexone HCl) 50 Mg Tab 100 MG PO QAM Olanzapine (Zyprexa) 20 Mg Tab 10 MG PO QAM, TAB Olanzapine (Zyprexa) 20 Mg Tab 20 MG PO HS, TAB Ranitidine Hcl (Ranitidine Hcl) 300 Mg Cap 300 MG PO BID, #60 Discharge Exam Patient denied any complaints. ROS limited due to mental status. Physical Exam: General Appearance: no apparent distress Eyes: normal inspection, PERRL ENT: hearing grossly normal Neck: supple Respiratory/Chest: lungs clear, no respiratory distress, no accessory muscle use, + decreased breath sounds Cardiovascular: regular rate, rhythm, no edema Abdomen / GI: normal bowel sounds, non tender, soft Extremities: no calf tenderness, no pedal edema Neurologic/Psychiatric: alert Skin: normal color, warm/dry, no rash (Lyndsey Ellis PA-C) Hospital Course HPI PER ZANA HIGGINS PA-C AT ADMISSION: Ms. Sunshine is a 31 y/o non-verbal female with PMHx of Mental Retardation, Seizure Disorder, Traumatic Intracranial Bleed (2013), and Scoliosis who presents to the ED for complaints of flu-like symptoms and fever x 2 days. HPI solely obtained from father as patient is non-verbal. He states that this was a quick onset. Patient initially had nasal congestion and they thought she was developing a cold and used Mucinex that did not give relief. She started sounding more congested and lethargic. She has been diaphoretic with low-grade fevers at home. She has an associate cough that sounds productive however patient's coughing effort is poor and has not coughed much mucus out. She had intermittent episodes of brown colored nasal secretions and sputum. She has been eating and drinking okay last night. She was able to take her medications yesterday without any problems. She did have an episode of emesis this morning after trying to take her seizure medications. Per family she has had a seizure after missing doses in the past for illness. Last seizure possible in May but family says it is rare that these occur. Patient is incontinent of urine and feces. They do not recall sick contacts. In the ED, she was given a Duoneb treatment, hydrated with NSS 1 L bolus, and started on Levaquin 500 mg IV. Family reports that the breathing treatment appears to have broken up the congestion in her chest. She was medicated with IV Ativan is currently sedated however respirations adequate and airway remains intact. She will be admitted to the Med/Surg floor treatment of possible CAP. *Of note patient will need 1:1 observation due to confusion and delirium. She is ambulatory with assistance but has balance deficits. She requires assistance with ADLs. Oral pills need crushed and mixed in applesauce. Diet is regular with normal liquid consistency and uses straws. SIRS,CAP, poss of aspiration pneumonia can be considered w her neurological and mental capacity baseline. WBC count trending downward, oxygenation improving - CXR - image and report reviewed - cardiomegaly; bilateral perihilar opacities R > L - pulmonary edema vs pneumonia -- Repeated CXR at discharge shows improvement - Change Abx to PO and DC Rocephin -- Clindamycin 300 mg PO TID (for aspiration pneumonia coverage) and Levaquin 500 mg PO daily x10 day course - Speech and swallowing evaluation input appreciated --Dental soft diet, straws OK - Aspiration precaution - DuoNeb QID and Q2H PRN - Recheck labs - Encouraged PO liquids to Mom for mild tachycardia, mild dehydration as has no IV Hypokalemia: - Replaced with 40 mEq KCL Vomiting, improved - Restarted on PO diet and tolerating well Possible UTI- UA seems like dirty sample, don't expect UR cx to grow anything out - U/A and culture -- Growing gram negative bacilli. Covered with Levaquin Seizure Disorder: - Seizure precautions - Patient without medications the AM of Admisison -- Keppra IV 1000 mg x 1 dose on admission - Continue PO Keppra 1250 mg BID - Lamictal 400 mg BID Mental Retardation: - 1:1 observation - Lorazepam 0.5 mg Q4H PRN - Fluoxetine Soln 20 mg/5 mL - 10 mL - Naltrexone 100 mg daily - Zyprexa 10 mg AM and 20 mg PM DVT Prophylaxis: - Lovenox 40 mg SC Code Status: - FULL RESUSCITATION Dispo: -Discharge to home Total Time Spent: Greater than 30 minutes This includes examination of the patient, discharge planning, medication reconciliation, and communication with other providers. (Lyndsey Ellis ., BUCK) Discharge Instructions Please refer to the electronic Patient Visit Report (Discharge Instructions) for additional information. (Lyndsey Ellis PA-C) Follow-Up Follow-up with Dr. Mendoza on July 10 Please follow-up/keep all of your subspecialty appointments (Lyndsey Ellis, BUCK) Additional Copies To Breanna Mendoza DO Reviewed: Pt Seen/Exam by Me, ASAD Notes, Labs, RAD (Clemencia Terry MD) History Agree with above PA Discharge summary/ ROS. Pt doing very well, eating and drinking, no more nausea or vomiting, minimal cough, CXR improved. (Clemencia Terry MD) All Other Systems: Reviewed and Negative (Clemencia Terry MD) General Appearance: WD/WN, no apparent distress Eye Exam: bilateral eye normal inspection Neck: trachea midline Respiratory: normal breath sounds, no respiratory distress, no accessory muscle use Cardiovascular: regular rate, rhythm, no edema, no gallop, no murmur Gastrointestinal: normal bowel sounds, non tender, soft Extremities: non-tender, normal inspection, no pedal edema, no calf tenderness Neurologic/Psychiatric: alert (and active, smiling, laughing, singing along to [place] on the TV) (Clemencia Terry MD) Assessment/Plan Agree with above PA Discharge Summary. Should have repeated CXR in 1-2 weeks to ensure resolution. Send out on clinda and Levaquin, close f/u with PCP arranged prior to discharge (Clemencia Terry MD)
[2016-07-03 13:47] VITALS: BP 105/72; PULSE 104; TEMP 36.9; O2SAT 97
[2016-07-04] MEDS ORDERED: CLON0.1T12 PO (11:42)
--- NOTE | 2016-07-09 21:48 | EDITING REQUIRED CODING QUERY ---
SEPSIS Dear Dr. Terry, To promote full compliance with coding requirements relating to patient care, physician participation is requested in all cases of teacher tutor uncertainty. Please assist us with the question(s) below: In responding to this query, please exercise your independent professional judgement. The fact that a question is asked does not imply that any particular answer is desired or expected. We appreciate your clarification on this issue. Please clarify SIRS below: Medical documentation: SIRS,CAP, poss of aspiration pneumonia can be considered w her neurological and mental capacity baseline. WBC count trending downward, oxygenation improving - CXR - image and report reviewed - cardiomegaly; bilateral perihilar opacities R > L - pulmonary edema vs pneumonia -- Repeated CXR at discharge shows improvement - Change Abx to PO and DC Rocephin ( )Bacteremia (Nonspecific laboratory finding of bacteria in the blood) Specify Organism () Present on Admission () Not present on admission () Unable to clinically determine ( ) Septicemia (Systemic disease associated with the presence of pathogenic microorganisms in the blood): Specify Organism () Present on Admission () Not present on admission () Unable to clinically determine ( x ) Sepsis Specify Organism-unknown Specify Associated Condition/Diagnosis (x) Present on Admission () Not present on admission () Unable to clinically determine ( ) Severe Sepsis (Sepsis associated with acute organ dysfunction) Specify Organism Specify Associated Condition/Diagnosis () Present on Admission () Not present on admission () Unable to clinically determine ( ) Septic Shock (Severe sepsis with acute circulatory failure, unexplained by other causes) () Present on Admission () Not present on admission () Unable to clinically determine ( ) Other, patient has: ( ) Sepsis was ruled out Thank you for your time. Sabi Toro, ASSURANCE ASSOCIATE
== END 2016-07-03 14:29 | disposition home or self-care (01) | DRG 871 ==
LOC: ENRESERVDT → ENRESERVTM → C.EDB 09:21 → C.4E 14:45
PROVIDERS: ADMIT Internal Medicine; ATTEND Family Medicine
DX: A41.9 Sepsis, unspecified organism (principal); J69.0 Pneumonitis due to inhalation of food and vomit; N39.0 Urinary tract infection, site not specified; F73 Profound intellectual disabilities; G40.209 Localization-related (focal) (partial) symptomatic epilepsy and epileptic syndromes with complex partial seizures, not intractable, without status epilepticus; M41.9 Scoliosis, unspecified; E87.6 Hypokalemia; E86.0 Dehydration; B96.89 Other specified bacterial agents as the cause of diseases classified elsewhere; R11.10 Vomiting, unspecified; R26.89 Other abnormalities of gait and mobility; Z86.79 Personal history of other diseases of the circulatory system; Z79.899 Other long term (current) drug therapy

== ENCOUNTER 2016-07-04 11:18 | Emergency (ER) | payer OTHER ==
[~2016-07-04] VITALS: Ht 142.2 cm; Wt 80.0 kg
[~2016-07-04 11:18] MED LIST changes: +CLIN300C2 PO; -CLON0.1T12 PO; +KPP/1000 PO; +LVQ500 PO; +NALT50TA16 PO; -NLT50 PO; -OLAN-102 PO; +ZYP20 PO
[2016-07-04 11:20] VITALS: TEMP 36.6; Ht 142.2 cm; Wt 80.0 kg
[2016-07-04] MEDS ORDERED: CLON0.1T12 PO (11:42)
--- NOTE | 2016-07-04 12:27 | DIAGNOSTIC IMAGING REPORT ---
NASAL BONES MIN 3 VIEWS CLINICAL HISTORY: Facial injury in fall trauma. Pain. COMPARISON STUDY: None FINDINGS: Negative study. Nasal bones as well as maxillary spine are intact. IMPRESSION: No acute process. Electronically signed by: Elmer Thompson M.D. 07/04/2016 12:25 PM
--- NOTE | 2016-07-04 12:29 | DIAGNOSTIC IMAGING REPORT ---
LEFT FOOT MIN 3 VIEWS ROUTINE CLINICAL HISTORY: L foot pain/bruising from fall trauma. Pain. COMPARISON: None. DISCUSSION: Suboptimal study as the patient was unable to fully cooperate. No major acute bony abnormality. Moderate soft tissue edema dorsal to the metatarsal region. IMPRESSION: Soft tissue edema. No gross bony abnormality. Limited study technically due to the patient's ability to cooperate Electronically signed by: Elmer Thompson M.D. 07/04/2016 12:27 PM
[2016-07-04 12:45] VITALS: BP 124/92; PULSE 89; O2SAT 94
--- NOTE | 2016-07-04 13:06 | EMERGENCY ROOM VISIT NOTE ---
History First contact with patient: 11:29 Chief Complaint: FALL Stated Complaint: FELL, NOSE INJURY, REDNESS TO LEFT FOOT History of Present Illness The patient is a 31 year old female who presents to the Emergency Room with her mother with complaints of injuries from a fall out of her wheelchair in her transportation van. The mother reports that the patient was discharged from our facility yesterday for pneumonia. As they report into the driveway, the patient was attempting to get out of her seatbelt. The mother believes that she was leaning forward and fell out of her wheelchair. She immediately noticed swelling over the bridge of the nose, and a small abrasion that had no significant bleeding. There was no loss of consciousness. She reports that several times throughout the day yesterday, she was also limping on her left leg. The mother noticed bruising and swelling of the foot. At times she does not have any discomfort with ambulation. The mother reports no significant complaint of discomfort. Tetanus immunization is up-to-date. Review of Systems 10 system review was performed with the mother, and was negative except for pertinent positives and negatives as indicated in history of present illness Past Medical/Surgical History Medical Problems: (1) Calculus Of Kidney (2) Mental Retardation Nos (3) Pneumonia (4) Severe Intellectual Disabilities Family History Unremarkable Social History Smoking Status: Never Smoker Alcohol Use: none Drug Use: none Marital Status: single Housing Status: lives with family Current/Historical Medications Scheduled Clindamycin Hcl (Cleocin), 300 MG PO TID Clonidine Hcl (Catapres), 0.5 TAB PO BID Fluoxetine Hcl (Fluoxetine Hcl), 10 ML PO DAILY Lactulose (Encephalopathy) (Lactulose), 30 ML PO HS Lamotrigine (Lamictal), 400 MG PO BID Levetiracetam (Keppra), 250 MG PO BID Levetiracetam (Keppra), 1,000 MG PO BID Levofloxacin (Levofloxacin), 500 MG PO DAILY@11 Naltrexone HCl (Naltrexone HCl), 100 MG PO QAM Olanzapine (Zyprexa), 10 MG PO QAM Olanzapine (Zyprexa), 20 MG PO HS Ranitidine Hcl (Ranitidine Hcl), 300 MG PO BID Scheduled PRN Lorazepam (Ativan), 0.5 MG PO Q6H PRN for Anxiety/Agitation Allergies Coded Allergies: Carbamazepine (Verified Allergy, Unknown, unknown, 1/3/17) Amoxicillin (Verified Adverse Reaction, Intermediate, vomiting, 07/04/16) Clavulanic Acid (Verified Adverse Reaction, Intermediate, vomiting, 07/04/16 ) Lacosamide (Verified Adverse Reaction, Intermediate, nausea, 07/04/16) Physical Exam Vital Signs Date Time Temp Pulse Resp B/P Pulse Ox O2 Delivery O2 Flow Rate FiO2 07/04/16 12:45 89 20 124/92 94 07/04/16 11:20 36.6 108 20 96 Room Air Physical Exam CONSTITUTIONAL: Healthy and well nourished. Patient does not appear in any acute distress, and is joking with her mother. HEENT: Examination shows a small amount of edema and ecchymosis over the bridge of the nose with a very small abrasion. Examination of the nares does not show any septal deformity, hematoma or evidence for prior epistaxis. The nose is well aligned. Pupils equal, round and reactive. No subconjunctival hemorrhage , hemotympanum, raccoon's eyes or Hussein sign. NECK: The patient exhibits full active range of motion without discomfort. RESPIRATORY: Clear to auscultation bilaterally with no wheezing, crackles, rhonchi or stridor. CARDIOVASCULAR: Regular rate and rhythm with no murmurs, rubs or gallops. MUSCULOSKELETAL: Examination of the left foot shows mild edema and anterolateral ecchymosis. Negative anterior draw. No worsening discomfort with subtalar motion. Pedal pulses are intact. INTEGUMENTARY: No rash or other significant dermatologic conditions noted. NEUROLOGIC: Upper and lower extremities appear to be sensory intact. Medical Decision & Procedures ER Provider Diagnostic Interpretation: My interpretation of nasal bone x-rays does not show any obvious fractures. Radiologist report is as follows: LEFT FOOT MIN 3 VIEWS ROUTINE CLINICAL HISTORY: L foot pain/bruising from fall trauma. Pain. COMPARISON: None. DISCUSSION: Suboptimal study as the patient was unable to fully cooperate. No major acute bony abnormality. Moderate soft tissue edema dorsal to the metatarsal region. IMPRESSION: Soft tissue edema. No gross bony abnormality. Limited study technically due to the patient's ability to cooperate My interpretation of left foot x-rays also does not show any acute fractures or dislocations. Radiologist report is as follows: LEFT FOOT MIN 3 VIEWS ROUTINE CLINICAL HISTORY: L foot pain/bruising from fall trauma. Pain. COMPARISON: None. DISCUSSION: Suboptimal study as the patient was unable to fully cooperate. No major acute bony abnormality. Moderate soft tissue edema dorsal to the metatarsal region. IMPRESSION: Soft tissue edema. No gross bony abnormality. Limited study technically due to the patient's ability to cooperate ED Course Patient history and physical exam were performed. Nurse's notes were reviewed. An ice pack was dispensed. X-rays of the nasal bones and left foot were normal. The mother was encouraged to intermittently apply ice to areas of swelling and discomfort. I also encouraged limited activities until symptoms improve. Follow-up with PCP as needed. The mother was happy with plan of care , voiced understanding of all discharge instructions, and the patient denied any pain at the time of discharge. Medical Decision Impression Primary Impression: Facial contusion Additional Impressions: Contusion of left foot, Fall Departure Information Referrals Breanna Mendoza DO (PCP) Patient Instructions A Signature Page, [facility]
== END 2016-07-04 12:46 | disposition home or self-care (01) ==
LOC: C.EDB 11:19 → C.EDD 12:46
DX: S00.83XA Contusion of other part of head, initial encounter (principal); S90.32XA Contusion of left foot, initial encounter; W05.0XXA Fall from non-moving wheelchair, initial encounter; F72 Severe intellectual disabilities; Z87.442 Personal history of urinary calculi; Z79.899 Other long term (current) drug therapy; Z88.8 Allergy status to other drugs, medicaments and biological substances

== ENCOUNTER 2016-08-26 10:37 | Emergency (ER) | payer OTHER ==
[~2016-08-26 10:37] MED LIST changes: +CLON0.1T12 PO; -NALT50TA16 PO; +NLT50 PO
[2016-08-26 10:40] VITALS: TEMP 36.4
[2016-08-26 12:24] LABS: BASO % 0.1 %; BASO ABS # 0.01 K/uL (0-0.2); COMPLETE YES; HEMATOCRIT 44.3 % (37-47); IG% 0.3 %; LYMPH % 24.8 %; LYMPH ABS # 1.86 K/uL (1.2-3.4); MEAN CORPUSCULAR HEMOGLOBIN 31.9 pg (25-34); MEAN CORPUSCULAR HGB CONC 35.4 g/dl (32-36); MONO % 13.1 %; NEUT % 61.7 %; PLATELET COUNT 209 K/uL (130-400); RED BLOOD COUNT 4.92 M/uL (4.2-5.4); WHITE BLOOD COUNT 7.49 K/uL (4.8-10.8)
[2016-08-26 12:47] LABS: ALT/SGPT 55 U/L (12-78); AST/SGOT 22 U/L (15-37); BLOOD UREA NITROGEN 7 mg/dl (7-18); BUN/CREATININE RATIO 11.1 (10-20); CALCIUM 9.2 mg/dl (8.5-10.1); CARBON DIOXIDE 31 mmol/L (21-32); CHLORIDE 103 mmol/L (98-107); CREATININE 0.62 mg/dl (0.60-1.20); GLUCOSE 82 mg/dl (70-99); POTASSIUM 3.8 mmol/L (3.5-5.1); SODIUM 142 mmol/L (136-145)
[2016-08-26 12:52] LABS: ALB/GLOB RATIO 0.9 (0.9-2); ALKALINE PHOSPHATASE 95 U/L (45-117)
--- NOTE | 2016-08-26 13:09 | DIAGNOSTIC IMAGING REPORT ---
CHEST ONE VIEW PORTABLE CLINICAL HISTORY: cough COMPARISON STUDY: July 03, 2016 FINDINGS: There is a prominent scoliosis. The heart is normal in size. There are bilateral interstitial opacities, similar to the prior study given differences in technique. The patient is taking a lesser inspiration on today's examination. There are no pleural effusions.[ IMPRESSION: Low lung volumes with persistent bilateral interstitial opacities. No significant change given the differences in technique Electronically signed by: Elmer Huffman M.D. 08/26/2016 1:08 PM Dictated Date/Time: 08/26/2016 1:05 PM
[2016-08-26] MEDS ORDERED: DOXYCYCLINE HYCLATE 100 MG CAP PO ONE (13:30)
[2016-08-26] MEDS ORDERED: DOXY100C PO (13:31)
[2016-08-26 13:55] VITALS: BP 110/73; PULSE 78; O2SAT 95
--- NOTE | 2016-08-26 15:09 | EMERGENCY ROOM VISIT NOTE ---
History Report prepared by Andreas: Dinorah Nunez Under the Supervision of: Dr. Nito Grover M.D. 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 The patient's father states the patient has been having increased work of breathing which is worse at night. The father states that the patient has been using Mucinex, cough syrup, an albuterol inhaler and a nebulizer and the cough has persisted. He states she does not have asthma but states the inhaler has been helping her breathing. He states the patient has had pneumonia in the past and he was concerned that the patient possibly has it again. He states the patient goes to a day program but states he does not think she has had any sick contacts. Source of History: parent (Father) Onset: 1 week ENVIRONMENTAL HEALTH TECHNOLOGIST Position: other (global) Timing: worsening Modifying Factors (Relieving): other (inhaler) Associated Symptoms: + cough Note: Associated symptom: increase work of breathing at night. Review of Systems See HPI for pertinent positives & negatives. A total of 10 systems reviewed and were otherwise negative. Past Medical & Surgical Medical Problems: (1) Calculus Of Kidney (2) Mental Retardation Nos (3) Pneumonia (4) Severe Intellectual Disabilities Family History Patient reports no known family medical history. Social History Smoking Status: Never Smoker Alcohol Use: none Drug Use: none Marital Status: single Housing Status: lives with family Current/Historical Medications Scheduled Clonidine Hcl (Catapres), 0.5 TAB PO BID Doxycycline Hyclate (Vibramycin), 100 MG PO BID Fluoxetine Hcl (Fluoxetine Hcl), 10 ML PO DAILY Lactulose (Encephalopathy) (Lactulose), 30 ML PO BID Lamotrigine (Lamictal), 400 MG PO BID Levetiracetam (Keppra), 250 MG PO BID Levetiracetam (Keppra), 1,000 MG PO BID Naltrexone HCl (Naltrexone HCl), 100 MG PO QAM Olanzapine (Zyprexa), 20 MG PO QAM Olanzapine (Zyprexa), 40 MG PO HS Allergies Coded Allergies: Carbamazepine (Verified Allergy, Unknown, unknown, 08/26/16) Amoxicillin (Verified Adverse Reaction, Intermediate, vomiting, 08/26/16) Clavulanic Acid (Verified Adverse Reaction, Intermediate, vomiting, ) Lacosamide (Verified Adverse Reaction, Intermediate, nausea, 08/26/16) Physical Exam Vital Signs Date Time Temp Pulse Resp B/P Pulse Ox O2 Delivery O2 Flow Rate FiO2 08/26/16 13:55 78 20 110/73 95 08/26/16 12:42 95 Room Air 08/26/16 12:35 88 20 115/77 95 Room Air 08/26/16 10:40 36.4 93 20 120/80 95 Room Air Physical Exam GENERAL: Patient is in no acute distress. HEENT: No acute trauma, normocephalic atraumatic, mucous membranes moist, no nasal congestion, no scleral icterus. NECK: No stridor, no adenopathy, no meningismus, trachea is midline. LUNGS: Decreased breath sounds on the right. Left lung is clear. No respiratory distress. HEART: Without murmurs gallops or rubs, regular rate and rhythm. ABDOMEN: Soft, nontender, bowel sounds positive, no hernias, no peritonitis. EXTREMITIES: No cyanosis or edema, full range of motion of all the joints without pain or difficulty, no signs for acute trauma. NEUROLOGIC: Moves all extremities, MR noted. Awake and alert. SKIN: No rash, no jaundice, no diaphoresis. Medical Decision & Procedures ER Provider Diagnostic Interpretation: X-ray results as stated below per interpretation by me and the radiologist: CHEST ONE VIEW PORTABLE CLINICAL HISTORY: cough COMPARISON STUDY: July 03, 2016 FINDINGS: There is a prominent scoliosis. The heart is normal in size. There are bilateral interstitial opacities, similar to the prior study given differences in technique. The patient is taking a lesser inspiration on today's examination. There are no pleural effusions.[ IMPRESSION: Low lung volumes with persistent bilateral interstitial opacities. No significant change given the differences in technique Electronically signed by: Elmer Huffman M.D. 08/26/2016 1:08 PM Dictated Date/Time: 08/26/2016 1:05 PM Laboratory Results 08/26/16 12:00 Red Blood Count 4.92, Mean Corpuscular Volume 90.0, Mean Corpuscular Hemoglobin 31.9, Mean Corpuscular Hemoglobin Concent 35.4, Mean Platelet Volume 11.0, Neutrophils (%) (Auto) 61.7, Lymphocytes (%) (Auto) 24.8, Monocytes (%) (Auto) 13.1, Eosinophils (%) (Auto) 0.0, Basophils (%) (Auto) 0.1, Neutrophils # (Auto ) 4.62, Lymphocytes # (Auto) 1.86, Monocytes # (Auto) 0.98, Eosinophils # (Auto ) 0.00, Basophils # (Auto) 0.01 08/26/16 12:00 Test 08/26/16 12:00 08/26/16 12:30 White Blood Count 7.49 K/uL (4.8-10.8) Red Blood Count 4.92 M/uL (4.2-5.4) Hemoglobin 15.7 g/dL (12.0-16.0) Hematocrit 44.3 % (37-47) Mean Corpuscular Volume 90.0 fL (80-100) Mean Corpuscular Hemoglobin 31.9 pg (25-34) Mean Corpuscular Hemoglobin Concent 35.4 g/dl (32-36) Platelet Count 209 K/uL (130-400) Mean Platelet Volume 11.0 fL (7.4-10.4) Neutrophils (%) (Auto) 61.7 % Lymphocytes (%) (Auto) 24.8 % Monocytes (%) (Auto) 13.1 % Eosinophils (%) (Auto) 0.0 % Basophils (%) (Auto) 0.1 % Neutrophils # (Auto) 4.62 K/uL (1.4-6.5) Lymphocytes # (Auto) 1.86 K/uL (1.2-3.4) Monocytes # (Auto) 0.98 K/uL (0.11-0.59) Eosinophils # (Auto) 0.00 K/uL (0-0.5) Basophils # (Auto) 0.01 K/uL (0-0.2) RDW Standard Deviation 40.7 fL (36.4-46.3) RDW Coefficient of Variation 12.4 % (11.5-14.5) Immature Granulocyte % (Auto) 0.3 % Immature Granulocyte # (Auto) 0.02 K/uL (0.00-0.02) Anion Gap 8.0 mmol/L (3-11) Estimated GFR () 140.2 Estimated GFR (Non- 121.0 BUN/Creatinine Ratio 11.1 (10-20) Calcium Level 9.2 mg/dl (8.5-10.1) Total Bilirubin < 0.1 mg/dl (0.2-1) Aspartate Amino Transf (AST/SGOT) 22 U/L (15-37) Alanine Aminotransferase (ALT/SGPT) 55 U/L (12-78) Alkaline Phosphatase 95 U/L (45-117) Troponin I < 0.015 ng/ml (0-0.045) Total Protein 8.0 gm/dl (6.4-8.2) Albumin 3.8 gm/dl (3.4-5.0) Globulin 4.2 gm/dl (2.5-4.0) Albumin/Globulin Ratio 0.9 (0.9-2) Influenza Type A Antigen Neg for Influ A (NEG) Influenza Type B Antigen Neg for Influ B (NEG) Laboratory results reviewed by me. Medications Administered Medications (Trade) Dose Ordered Sig/Cristel Route Start Time Stop Time Status Last Admin Dose Admin Doxycycline Hyclate (Vibramycin Cap) 100 mg ONE ONCE PO 08/26/16 13:30 08/26/16 13:31 DC 08/26/16 13:55 100 MG ECG Indication: SOB/dyspnea Rate (beats per minute): 82 Rhythm: normal sinus Findings: no acute ischemic change, no ectopy ED Course 1138: The patient was evaluated in room C11B. A complete history and physical exam was performed. 1330: Ordered Vibramycin Cap 100 mg PO. 1335: Reevaluated the patient. Discussed results and discharge instructions with the patient and her father. He verbalized understanding and agreement. The patient is ready for discharge. Medical Decision The patient is a 31 year old female who presents to the ED with complaints of SOB. Differential diagnoses considered include bronchitis, pneumonia, influenza , viral illness, electrolyte imbalance, and anemia. . There is no leukocytosis or concerning anemia. No significant electrolyte abnormality, kidney failure or hepatitis. Influenza testing is negative. Chest x-ray does not show pneumonia or CHF. EKG shows a normal sinus rhythm, no acute ischemia. Cardiac enzyme testing times one is not consistent with acute cardiac injury. Blood cultures are pending. The patient is doing well, she is not febrile or hypoxic. She likely has an acute bronchitis. Given her propensity to develop pneumonia, I did think treatment with antibiotics would be indicated. The patient was given oral doxycycline and this will be continued as an outpatient. If things are worsening, the patient can be brought back for reassessment. Impression Primary Impression: Acute bronchitis Additional Impression: Cough Scribe Attestation The scribe's documentation has been prepared under my direction and personally reviewed by me in its entirety. I confirm that the note above accurately reflects all work, treatment, procedures, and medical decision making performed by me. Departure Information Dispostion Home / Self-Care Prescriptions Doxycycline Hyclate (VIBRAMYCIN) 100 Mg Cap 100 MG PO BID for 7 Days, #14 CAP Prov: Nito Grover M.D. 08/26/16 Referrals Breanna Baker DO (PCP) Forms HOME CARE DOCUMENTATION FORM, IMPORTANT VISIT INFORMATION, WORK / SCHOOL INSTRUCTIONS Patient Instructions My [facility] Additional Instructions continue the mucinex, cough syrup, albuterol start doxycycline 2x per day for 1 week see judith botello this week for a recheck return for worsening symptoms or fever chest film today was ok, labs were ok Problem Qualifiers
== END 2016-08-26 13:56 | disposition home or self-care (01) ==
LOC: C.EDB 10:39 → C.EDC 13:56
DX: J20.9 Acute bronchitis, unspecified (principal); R05 Cough; F72 Severe intellectual disabilities; Z87.01 Personal history of pneumonia (recurrent); Z87.442 Personal history of urinary calculi

== ENCOUNTER 2017-07-15 10:50 | Emergency (ER) | payer OTHER ==
[~2017-07-15 10:50] MED LIST changes: -CLIN300C2 PO; -LORA-741 PO; -LVQ500 PO; +NALT50TA16 PO; -NLT50 PO; -RANI300C PO
[2017-07-15 10:58] VITALS: TEMP 37.3
[2017-07-15] MEDS ORDERED: GI COCKTAIL PO STA (11:35)
[2017-07-15] MEDS ORDERED: IBUPROFEN 600 MG TAB PO STA (11:35)
[2017-07-15] MEDS ORDERED: ACETAMINOPHEN 500 MG TAB PO STA (11:35)
[2017-07-15] MEDS ORDERED: BENZONATATE 100MG CAP PO ONE (11:45)
[2017-07-15] MEDS ORDERED: LIDOCAINE HCL 2% VISC SOLN 20 ML UDC ONE (12:00)
[2017-07-15] MEDS ORDERED: ALUMINUM/MAGNESIUM SUSP 30 ML UDC ONE (12:01)
--- NOTE | 2017-07-15 12:18 | DIAGNOSTIC IMAGING REPORT ---
CHEST ONE VIEW PORTABLE HISTORY: persistent cough, h/o MR COMPARISON: Chest 08/26/2016. FINDINGS: Low lung volumes. S-shaped scoliosis of the thoracolumbar spine, unchanged. The heart remains normal in size. No new focal lung consolidations. No pleural effusions. No pneumothorax. Diffuse interstitial thickening persists. IMPRESSION: No change compared to the prior studies. Low lung volumes with diffuse interstitial thickening. No new focal lung consolidations. Electronically signed by: Prasanna Reese M.D. 07/15/2017 12:16 PM Dictated Date/Time: 07/15/2017 12:15 PM
[2017-07-15 12:43] VITALS: BP 122/80; PULSE 77; O2SAT 97
[2017-07-15] MEDS ORDERED: BENZ100C18 PO (13:12)
--- NOTE | 2017-07-15 13:12 | EMERGENCY ROOM VISIT NOTE ---
History Report prepared by Andreas: Niesha Stubbs Under the Supervision of: Dr. Cedric Glasgow M.D. First contact with patient: 11:06 Chief Complaint: COUGH Stated Complaint: HORRIBLE COUGH History of Present Illness The patient is a 32 year old female with a past medical history of mental retardation who presents to the ED with a cc of worsening cough beginning a week ago. The patient's director critical care notes that she has not been sleeping at night because of the cough. She reports that she gave her a dose of Albuterol with a little relief. Positive nasal congestion. Negative ear pulling , abnormal eating/drinking, and a history of asthma. The patient's director critical care states that she has been around people with some sinus infections. Source of History: caregiver Onset: a week ago Position: other (global) Timing: worsening Modifying Factors (Relieving): other (Albuterol) Note: The patient complains of nasal congestion. The patient denies ear pulling and abnormal eating/drinking. Review of Systems See HPI for pertinent positives and negatives. A total of ten systems were reviewed and were otherwise negative. Past Medical & Surgical Medical Problems: (1) Calculus Of Kidney (2) Mental Retardation Nos (3) Pneumonia (4) Severe Intellectual Disabilities Family History Patient reports no known family medical history. Social History Smoking Status: Never Smoker Alcohol Use: none Drug Use: none Marital Status: single Housing Status: lives with family Occupation Status: disabled Current/Historical Medications Scheduled Benzonatate (Tessalon Perles), 100 MG PO TID Clonidine Hcl (Catapres), 0.5 TAB PO BID Fluoxetine Hcl (Fluoxetine Hcl), 10 ML PO DAILY Lactulose (Encephalopathy) (Lactulose), 30 ML PO BID Lamotrigine (Lamictal), 400 MG PO BID Levetiracetam (Keppra), 250 MG PO BID Levetiracetam (Keppra), 1,000 MG PO BID Naltrexone HCl (Naltrexone HCl), 100 MG PO QAM Olanzapine (Zyprexa), 20 MG PO QAM Olanzapine (Zyprexa), 40 MG PO HS Allergies Coded Allergies: Carbamazepine (Verified Allergy, Unknown, unknown, 07/15/17) Amoxicillin (Verified Adverse Reaction, Intermediate, vomiting, 07/15/17) Clavulanic Acid (Verified Adverse Reaction, Intermediate, vomiting, ) Lacosamide (Verified Adverse Reaction, Intermediate, nausea, 07/15/17) Physical Exam Vital Signs Date Time Temp Pulse Resp B/P (MAP) Pulse Ox O2 Delivery O2 Flow Rate FiO2 07/15/17 12:43 77 20 122/80 97 Room Air 07/15/17 10:58 37.3 95 22 112/72 96 Room Air Physical Exam GENERAL: Awake, alert, well-appearing, NAD HENT: Normocephalic, atraumatic. EYES: Normal conjunctiva. Sclera non-icteric. NECK: Supple. No nuchal rigidity. FROM. No stridor. RESPIRATORY: CTAB, no rhonchi, wheezing, crackles CARDIAC: RRR, no MRG ABDOMEN: Soft, NTND, BS+ MSK: No chest wall TTP, no LE edema NEURO: GCS 15, CN 2-12 intact, moves all 4s on command SKIN: No rash or jaundice noted. Medical Decision & Procedures ER Provider Diagnostic Interpretation: Radiology results as stated below per my review and radiologist interpretation: CHEST ONE VIEW PORTABLE HISTORY: persistent cough, h/o MR COMPARISON: Chest 08/26/2016. FINDINGS: Low lung volumes. S-shaped scoliosis of the thoracolumbar spine, unchanged. The heart remains normal in size. No new focal lung consolidations. No pleural effusions. No pneumothorax. Diffuse interstitial thickening persists. IMPRESSION: No change compared to the prior studies. Low lung volumes with diffuse interstitial thickening. No new focal lung consolidations. Electronically signed by: Prasanna Reese M.D. 07/15/2017 12:16 PM Dictated Date/Time: 07/15/2017 12:15 PM Medications Administered Medications (Trade) Dose Ordered Sig/Cristel Route Start Time Stop Time Status Last Admin Dose Admin Ibuprofen (Motrin Tab) 600 mg ONE STAT PO 07/15/17 11:35 07/15/17 11:37 DC 07/15/17 12:11 600 MG Acetaminophen (Tylenol Tab) 1,000 mg NOW STAT PO 07/15/17 11:35 07/15/17 11:37 DC 07/15/17 12:11 1,000 MG Benzonatate (Tessalon Perles Cap) 100 mg NOW ONCE PO 07/15/17 11:45 07/15/17 11:46 DC 07/15/17 12:11 100 MG Lidocaine HCl (Viscous Lidocaine 2% Soln) 20 ml STK-MED ONCE .ROUTE 07/15/17 12:00 07/15/17 12:01 DC 07/15/17 12:10 20 ML Al Hydroxide/Mg Hydroxide (Maalox Susp) 30 ml STK-MED ONCE .ROUTE 07/15/17 12:01 07/15/17 12:02 DC 07/15/17 12:10 30 ML ED Course 1131: The patient was evaluated in room C5. A complete history and physical exam was performed. 1233: I reevaluated the patient. Discussed results and discharge instructions: her caregiver verbalized understanding and agreement. The patient is ready for discharge. Medical Decision The patient is a 32 year old female with a past medical history of mental retardation who presents to the ED with a cc of worsening cough beginning a week ago. Etiologies such as infections, reactive airway disease, pneumonia, pneumothorax , COPD, CHF, cardiac ischemia, pulmonary embolism, musculoskeletal, gastrointestinal, as well as others were entertained. Patient was seen and evaluated at the bedside. Patient has had some mild productive cough. Patient is fairly well-appearing older just of some borderline tachycardia. Patient has taken some DuoNeb's without much improvement. Patient was given medications and did have a chest x-ray was performed. Patient's chest x-ray was negative. Patient's cough improved after getting the viscous lidocaine. I did discuss that didn't think it was possible to prescribe this as an outpatient. Patient was told to continue the albuterol nebulizer treatments at home and to continue leab-vie-iplchyl medications. They can also try some tea with lemon and honey as well as salt water gargles if the patient tolerated. Patient was deemed suitable for outpatient follow-up and treatment. Patient was told to follow-up as an outpatient. I do not believe that she requires any more advanced imaging or blood work at this time she is fairly well-appearing with fairly stable vital signs.Patient was given strict follow-up, discharge, and return precautions. All questions were answered. Patient was deemed suitable for outpatient follow-up at this time. Patient agreed with the plan of care and was safely discharged home. The chart was completed utilizing [employer] voice recognition software. Grammatical errors, random word insertions, pronoun errors, and incomplete sentences are an occasional consequence of this system due to software limitations, ambient noise, and hardware issues. Any formal questions or concerns about the content, text, or information contained within the body of this dictation should be directly addressed to the physician for clarification. Medication Reconcilliation Current Medication List: was personally reviewed by me Blood Pressure Screening Patient's blood pressure: Normal blood pressure Blood pressure disposition: Did not require urgent referral Impression Primary Impression: Cough Additional Impression: Upper respiratory infection Scribe Attestation The scribe's documentation has been prepared under my direction and personally reviewed by me in its entirety. I confirm that the note above accurately reflects all work, treatment, procedures, and medical decision making performed by me. Departure Information Dispostion Home / Self-Care Prescriptions Benzonatate (TESSALON PERLES) 100 Mg Cap 100 MG PO TID, #15 CAP Prov: Cedric Glasgow M.D. 07/15/17 Referrals Breanna Baker DO (PCP) Forms HOME CARE DOCUMENTATION FORM, IMPORTANT VISIT INFORMATION Patient Instructions Deep Coughing, My Hubs1, Sore Throat, Sore Throats Self Care, Techniques Cough Airway Clear Additional Instructions Please return to the emergency department if you have worsening or recurrent symptoms not amenable to at-home treatment. Please call for a follow-up appointment with her primary care physician. Please take your medications as prescribed. If you have other concerns and/or complaints please feel free to also call your primary care physician's office or return the ED for further evaluation, management, and treatment. You may take 600 mg Ibuprofen every 6 hours as needed for pain with food for no more than 2 consecutive days. You may take tylenol 1000 mg every 6 hours as needed for pain. You may take motrin and tylenol separately or at the same time. Please continue to use the nebulizer. He may use it 4 times a day the first day , 3 times the second day, 2 times the third day and 1 time the 4th day. Take your medications as prescribed. You have been examined and treated today on an emergency basis only. This is not a substitute for, or an effort to provide, complete comprehensive medical care. It is impossible to recognize and treat all injuries or illnesses in a single emergency department visit. It is therefore important that you follow up closely with [facility], your PCP, and/or your specialist(s). Call as soon as possible for an appointment. Thank you for your time and consideration. I look forward to speaking with you again soon. Please don't hesitate to call us if you have any questions. Problem Qualifiers Additional Impression: Upper respiratory infection URI type: unspecified URI Qualified Codes: J06.9 - Acute upper respiratory infection, unspecified
== END 2017-07-15 13:23 | disposition home or self-care (01) ==
LOC: C.EDB 10:51 → C.EDC 13:23
DX: J06.9 Acute upper respiratory infection, unspecified (principal); F79 Unspecified intellectual disabilities

== ENCOUNTER → 2017-08-28 | Outpatient (CLI) | payer OTHER | END | disposition home or self-care (01) | LOC: C.LAB1850 09:55 | PROVIDERS: ATTEND Psychiatry & Neurology Neurology | DX: G40.209 Localization-related (focal) (partial) symptomatic epilepsy and epileptic syndromes with complex partial seizures, not intractable, without status epilepticus (principal) ==

== ENCOUNTER → 2018-01-23 | Outpatient (CLI) | payer OTHER ==
[~2018-01-23] MED LIST changes: -FLUO20SO PO; +FLUO20SO9 PO
== END | disposition home or self-care (01) ==
LOC: C.LAB1850 14:37
PROVIDERS: ATTEND Psychiatry & Neurology Neurology
DX: F72 Severe intellectual disabilities (principal)

== ENCOUNTER 2021-06-02 14:27 | Inpatient (IN) ==
[2021-06-02] MEDS ORDERED: dexAMETHasone**PF** 10 MG/ML VIAL IV ONE (14:46)
--- NOTE | 2021-06-02 14:54 | Emergency Department Note ---
Impression & Plan Respiratory failure, Hypoxic, Pneumonia due to 2019-nCoV ED Provider Note NAME: CONTRERAS HENSLEY AGE: 36 SEX: F : 1985 ARRIVES VIA: Ambulance INFORMANT: Patient ED PROVIDER(S): Jose Francisco Sandhu DO CHIEF COMPLAINT: cough and shortness of breath HPI: Patient is a 36-year-old female who is mentally delayed that presents the ER with her sister who is her adaptive physical educator at bedside. Patient has been hypoxic at home everyone at home has been sick with a cough and congestion. Symptoms have been present for the past week. She has been getting more short of breath. She has not been eating or drinking as much. She vomited, however via ambulance. She denies any belly pain. The sister denies that she has noticed that she has had any urinary symptoms. No other exacerbating or remitting factors. ROS: Limited secondary to intellectual delay PAST MEDICAL HISTORY:See Below PAST SURGICAL HISTORY:See Below FAMILY HISTORY:See Below SOCIAL HISTORY:See Below HOME MEDICATIONS:See Below ALLERGIES:See Below VITALS:See Below PHYSICAL EXAMINATION: GENERAL: Sitting up in bed, alert, coughing, slightly ill-appearing, disheveled on nasal cannula EYE EXAM: normal conjunctiva. PERRL and EOM's grossly intact. OROPHARYNX: no exudate, no erythema, lips, buccal mucosa, and tongue normal and mucous membranes are moist NECK: supple, no nuchal rigidity, no adenopathy, non-tender LUNGS: Diminished bilaterally. normal chest wall mechanics HEART: no murmurs, S1 normal and S2 normal ABDOMEN: abdomen soft, non-tender, normo-active bowel sounds, no masses, no rebound or guarding. BACK: Back is symmetrical on inspection and there is no deformity, no midline tenderness, no CVA tenderness. UPPER EXTREMITIES: upper extremities are grossly normal. LOWER EXTREMITIES: No pitting edema. NEURO EXAM: Awake alert at baseline moving all extremities MEDICAL DECISION MAKING: Patient is a 36-year-old female who presents ER for the above-stated complaint. She is found to be hypoxic and tachycardic and tachypneic. She was placed on high flow nasal cannula. Labs show no significant leukocytosis or anemia. BMP with mild hypokalemia. VBG with a pH of 7.47 and CO2 of 46. LFTs bilirubin was unremarkable. Troponin was negative. Lipase was unremarkable. Patient is Covid positive. Chest x-ray with bilateral infiltrates. She was placed on high flow and was still fairly tachypneic. She had to be restrained. Will likely not tolerate BiPAP. She is a full code at this time. She is given steroids fluids. She was updated at bedside. Discussed with the hospitalist and was made for further work-up. Triage Nursing notes reviewed. Limited review of prior medical records performed Vital Signs: reviewed and remarkable for hypoxic Differential diagnosis: Differential diagnoses includes but is not limited to pneumonia, bronchitis, COPD/Asthma exacerbation, pneumothorax, pulmonary embolism, congestive heart failure, acute coronary syndrome ER treatment provided: See below Diagnostics interpreted by me: ECG: Sinus tachycardia rate of 102 Left axis No PVCs QTC 469 Cardiac Monitoring: An order was placed for continuous cardiac monitoring. The monitor shows a rate of 101 with sinus rhythm. Laboratory studies: As stated above and show below. Imaging studies: Chest x-ray with bilateral infiltrates Consultation(s): Discussed with the hospitalist for further evaluation Procedures: none Critical Care: I have personally spent 32 minutes of critical care time in the direct management of this patient. This includes bedside care, interpretation of gabe gnostic studies, and testing, discussion with consultants, patient, and family members, and other required patient management activities. This [] minutes is in excess of all separately billable procedures. Past Med/Surg History Medical History Calculus of kidney Chronic reflux esophagitis Complex partial seizure Depression with anxiety Dyslipidemia Severe intellectual disabilities Urinary incontinence without sensory awareness Surgical History History of dental surgery History of facial surgery Family History Other Adopted Social History Smoking Status: Never smoker Second Hand Exposure: No; Hx Alcohol Use: No Hx Substance Use: No Visual Impairment: No Limitations Hearing Ability: Normal marital status: Single Current Living Situation: Family current occupational status: disabled Feels Safe at Home: Yes Dental Care, Regularly: Yes Physical Activity Frequency: Daily Seatbelt Use: always Allergies Allergies Allergy/AdvReac Type Severity Reaction Status Date / Time carbamazepine Allergy Unknown unknown Verified 06/02/21 15:16 amoxicillin AdvReac Intermediate vomiting Verified 06/02/21 15:16 clavulanic acid AdvReac Intermediate vomiting Verified 06/02/21 15:16 lacosamide AdvReac Intermediate nausea Verified 06/02/21 15:16 Home Meds Home Medications Medication Instructions Recorded Confirmed fluoxetine 20 mg/5 mL (4 mg/mL) 40 mg PO DAILY ml 06/18/19 06/02/21 oral solution lactulose 10 gram/15 mL oral 20 gm PO BID PRN #1892 ml 06/18/19 06/02/21 solution naltrexone 50 mg tablet 100 mg PO QAM tab 06/18/19 06/02/21 ondansetron 4 mg disintegrating 4 mg PO Q6H PRN #20 tab 06/18/19 06/02/21 tablet triamcinolone acetonide 0.1 % 1 appln TOPICAL BID PRN #1 gm 06/23/19 06/02/21 topical cream fluticasone propionate 50 2 spray INTRANASAL DAILY PRN 06/02/21 06/02/21 mcg/actuation nasal spray,suspension lamotrigine 200 mg tablet 400 mg PO BID 06/02/21 06/02/21 lamotrigine 25 mg tablet 25 mg PO QPM 06/02/21 06/02/21 levetiracetam 500 mg tablet 500 mg PO BID 06/02/21 06/02/21 montelukast 10 mg tablet 10 mg PO QAM 06/02/21 06/02/21 olanzapine 10 mg tablet 10 mg PO QAM 06/02/21 06/02/21 Previous Rx's Medication Instructions Recorded olanzapine 20 mg tablet 20 mg PO QPM #90 tab 08/20/19 clonidine HCl 0.1 mg tablet 0.05 mg PO BID #90 tab 09/19/19 diaper,brief,adult,disposable #162 ea 04/08/20 (Briefs, Adult-Extra Large) levetiracetam 1,000 mg tablet 1,000 mg PO BID 30 Days #60 tab 12/29/20 omeprazole 40 mg capsule,delayed 40 mg PO BID #180 cap 01/11/21 release lorazepam 1 mg tablet 0.5 mg PO QID PRN 30 Days #60 tab 03/31/21 Results & Data (ED) Vital Signs Vital Signs - 24 hr 06/02/21 14:46 06/02/21 15:00 06/02/21 15:52 Temperature 37.3 C Temperature Source Oral Pulse Rate 100 H 102 H Pulse Rate [Right Apical] 100 H Respiratory Rate 28 H 24 30 H Respiratory Effort / Characteristics Short of Breath Spontaneous Respiratory Pattern Regular Blood Pressure 118/80 118/71 Blood Pressure Mean 92 86 Pulse Oximetry 85 L 94 92 Oxygen Delivery Method Room Air Nasal Cannula High Flow Nasal Cannula Oxygen Flow Rate 35 Fraction of Inspired Oxygen 50 Sepsis Recent Fever Within 48 Hours Yes Sepsis New/Unexplained Change in Mental Status No Sepsis Action Taken by Nursing No Action Required 06/02/21 16:00 06/02/21 17:00 06/02/21 18:00 Temperature Temperature Source Pulse Rate 99 H 101 H 102 H Pulse Rate [Right Apical] Respiratory Rate 24 29 H 22 Respiratory Effort / Characteristics Respiratory Pattern Blood Pressure 138/85 146/93 H 117/81 Blood Pressure Mean 102 110 93 Pulse Oximetry 95 96 99 Oxygen Delivery Method High Flow Nasal Cannula High Flow Nasal Cannula High Flow Nasal Cannula Oxygen Flow Rate 35 35 35 Fraction of Inspired Oxygen 50 50 50 Sepsis Recent Fever Within 48 Hours Sepsis New/Unexplained Change in Mental Status Sepsis Action Taken by Nursing Laboratory Data Result diagrams: 06/02/21 15:28 06/02/21 15:28 Lab Results 06/02/21 06/02/21 06/02/21 Range/Units 15:28 15:28 15:28 WBC 7.60 (4.8-10.8) K/uL RBC 4.59 (4.2-5.4) M/uL Hgb 14.3 (12.0-16.0) g/dL Hct 43.0 (37-47) % MCV 93.7 (80-100) fL MCH 31.2 (25-34) pg MCHC 33.3 (32-36) g/dL RDW Std Deviation 43.5 (36.4-46.3) fL RDW Coeff of Pawel 12.6 (11.5-14.5) % Plt Count 219 (130-400) K/uL MPV 10.2 (7.4-10.4) fL Immature Gran % (Auto) 0.1 % Neut % (Auto) 74.3 % Lymph % (Auto) 7.6 % Wright % (Auto) 17.9 % Eos % (Auto) 0.0 % Baso % (Auto) 0.1 % Neut # (Auto) 5.64 (1.4-6.5) K/uL Lymph # (Auto) 0.58 L (1.2-3.4) K/uL Wright # (Auto) 1.36 H (0.11-0.59) K/uL Eos # (Auto) 0.00 (0-0.5) K/uL Baso # (Auto) 0.01 (0-0.2) K/uL Immature Gran # (Auto) 0.01 (0.00-0.02) K/uL VBG pH Cancelled VBG pCO2 Cancelled VBG pO2 Cancelled VBG HCO3 Cancelled VBG O2 Saturation Cancelled VBG Base Excess Cancelled Barometric Pressure Cancelled Sodium 140 (136-145) mmol/L Potassium 3.3 L (3.5-5.1) mmol/L Chloride 103 (98-107) mmol/L Carbon Dioxide 28 (21-32) mmol/L Anion Gap 9.0 (3-11) BUN 7 (7-18) mg/dl Creatinine 0.53 L (0.6-1.2) mg/dl Est Cr Clr Drug Dosing Not Reportable Est GFR ( Amer) 142.6 ml/min Est GFR (Non-Af Amer) 123.0 ml/min BUN/Creatinine Ratio 13.5 (10-20) Glucose 117 H (70-99) mg/dl Calcium 8.0 L (8.5-10.1) mg/dl Ferritin (8-388) ng/ml Total Bilirubin 0.3 (0.2-1) mg/dl AST 25 (15-37) U/L ALT 27 (12-78) U/L Alkaline Phosphatase 127 H (45-117) U/L Troponin I < 0.015 (0-0.045) ng/ml C-Reactive Protein (0-0.29) mg/dl NT-Pro-B Natriuret Pep (0-450) pg/ml Total Protein 7.4 (6.4-8.2) gm/dl Albumin 2.6 L (3.4-5.0) gm/dl Globulin 4.8 H (2.5-4.0) gm/dl Albumin/Globulin Ratio 0.5 L (0.9-2) Lipase 103 (73-393) U/L SARS-CoV-2 (PCR) (Negative) Influenza Type A (PCR) (Neg) Influenza Type B (PCR) (Neg) RSV (RT-PCR) (Neg) 06/02/21 06/02/21 06/02/21 Range/Units 15:28 15:30 16:00 WBC (4.8-10.8) K/uL RBC (4.2-5.4) M/uL Hgb (12.0-16.0) g/dL Hct (37-47) % MCV (80-100) fL MCH (25-34) pg MCHC (32-36) g/dL RDW Std Deviation (36.4-46.3) fL RDW Coeff of Pawel (11.5-14.5) % Plt Count (130-400) K/uL MPV (7.4-10.4) fL Immature Gran % (Auto) % Neut % (Auto) % Lymph % (Auto) % Wright % (Auto) % Eos % (Auto) % Baso % (Auto) % Neut # (Auto) (1.4-6.5) K/uL Lymph # (Auto) (1.2-3.4) K/uL Wright # (Auto) (0.11-0.59) K/uL Eos # (Auto) (0-0.5) K/uL Baso # (Auto) (0-0.2) K/uL Immature Gran # (Auto) (0.00-0.02) K/uL VBG pH 7.47 H VBG pCO2 46 VBG pO2 42 VBG HCO3 33 VBG O2 Saturation 76.6 VBG Base Excess 8.0 Barometric Pressure 722.4 Sodium (136-145) mmol/L Potassium (3.5-5.1) mmol/L Chloride (98-107) mmol/L Carbon Dioxide (21-32) mmol/L Anion Gap (3-11) BUN (7-18) mg/dl Creatinine (0.6-1.2) mg/dl Est Cr Clr Drug Dosing Est GFR ( Amer) ml/min Est GFR (Non-Af Amer) ml/min BUN/Creatinine Ratio (10-20) Glucose (70-99) mg/dl Calcium (8.5-10.1) mg/dl Ferritin 233.4 (8-388) ng/ml Total Bilirubin (0.2-1) mg/dl AST (15-37) U/L ALT (12-78) U/L Alkaline Phosphatase (45-117) U/L Troponin I (0-0.045) ng/ml C-Reactive Protein 8.73 H (0-0.29) mg/dl NT-Pro-B Natriuret Pep 53 (0-450) pg/ml Total Protein (6.4-8.2) gm/dl Albumin (3.4-5.0) gm/dl Globulin (2.5-4.0) gm/dl Albumin/Globulin Ratio (0.9-2) Lipase (73-393) U/L SARS-CoV-2 (PCR) POSITIVE A* (Negative) Influenza Type A (PCR) Negative (Neg) Influenza Type B (PCR) Negative (Neg) RSV (RT-PCR) Negative (Neg) Administered Medications Discontinued Medications Dexamethasone Sodium Phosphate (DexamethasonePf 10 Mg/Ml Vial) 6 mg IV NOW ONE Stop: 06/02/21 14:47 Last Admin: 06/02/21 15:45 Dose: 6 mg Documented by: [id number] Imaging Data Radiologist's Impression: Chest X-Ray 06/02/21 14:45 XR chest 1V portable HISTORY: Atypical Chest Pain COMPARISON: Chest 07/15/2017. FINDINGS: No pneumothorax. There are low lung volumes. Moderate S-shaped scoliosis of the thoracolumbar spine is again noted. The heart is enlarged. Diffuse interstitial/vascular thickening with patchy bibasilar airspace opacities. Suspect trace bilateral pleural effusions. IMPRESSION: Interval progression of the diffuse interstitial/vascular thickening and patchy bibasilar airspace opacities. This favors pulmonary edema. A superimposed viral pneumonia could also have a similar appearance. ACT 112: Negative or not required by law. Electronically signed by: Prasanna Reese M.D. 06/02/2021 3:06 PM Discharge Plan Visit Data Chief Complaint: Illness Stated Complaint: SOB, FEVER ED Provider: Jose Francisco Sandhu Discharge Problem: Respiratory failure, Hypoxic, Pneumonia due to 2019-nCoV Forms Stand Alone Forms: My etrig[facility] Prescriptions Prescriptions: No Action olanzapine 20 mg tablet 20 mg PO QPM Qty: 90 RF: 0 clonidine HCl 0.1 mg tablet 0.05 mg PO BID Qty: 90 RF: 1 (DME) Briefs, Adult-Extra Large Misc See Dose Instructions .ROUTE .MEDSUPPLY Qty: 162 RF: 12 levetiracetam 1,000 mg tablet 1,000 mg PO BID 30 Days Qty: 60 RF: 5 omeprazole 40 mg capsule,delayed release(DR/EC) 40 mg PO BID Qty: 180 RF: 1 lorazepam 1 mg tablet 0.5 mg PO QID PRN (Reason: Anxiety) 30 Days Qty: 60 RF: 1 fluoxetine 20 mg/5 mL (4 mg/mL) solution 40 mg PO DAILY RF: 0 lactulose 10 gram/15 mL solution 20 gm PO BID PRN (Reason: Constipation) Qty: 1892 RF: 0 naltrexone 50 mg tablet 100 mg PO QAM RF: 0 ondansetron 4 mg tablet,disintegrating 4 mg PO Q6H PRN (Reason: nausea and vomiting) Qty: 20 RF: 0 triamcinolone acetonide 0.1 % cream 1 appln topical BID PRN (Reason: rash) Qty: 1 RF: 0 fluticasone propionate [Flonase] 50 mcg/actuation Stendal,Suspension 2 spray INTRANASAL DAILY PRN (Reason: Congestion) RF: 0 lamotrigine 200 mg tablet 400 mg PO BID RF: 0 levetiracetam 500 mg tablet 500 mg PO BID RF: 0 olanzapine 10 mg tablet 10 mg PO QAM RF: 0 lamotrigine 25 mg tablet 25 mg PO QPM RF: 0 montelukast 10 mg tablet 10 mg PO QAM RF: 0 Referrals Referrals: Martha Branham MD [Primary Care Provider] - Discharge Problem: Respiratory failure Qualifiers: Chronicity: unspecified Respiratory failure complication: hypoxia Qualified Code(s): J96.91 - Respiratory failure, unspecified with hypoxia
--- NOTE | 2021-06-02 15:08 | XRay Report ---
XR chest 1V portable HISTORY: Atypical Chest Pain COMPARISON: Chest 07/15/2017. FINDINGS: No pneumothorax. There are low lung volumes. Moderate S-shaped scoliosis of the thoracolumb ar spine is again noted. The heart is enlarged. Diffuse interstitial/vascular thickening with patchy bibasilar airspace opacities. Suspect trace bilateral pleural effusions. IMPRESSION: Interval progression of the diffuse interstitial/vascular thickening and patchy bibasilar airspace op acities. This favors pulmonary edema. A superimposed viral pneumonia could also have a similar appear ance. ACT 112: Negative or not required by law. Electronically signed by: Prasanna Reese M.D. 06/02/2021 3:06 PM
[2021-06-02 15:42] LABS: Basophils # (auto) 0.01 K/uL (0-0.2); Basophils % (auto) 0.1 %; Hemoglobin 14.3 g/dL (12.0-16.0); Immature Granulocytes # (auto) 0.01 K/uL (0.00-0.02); Immature Granulocytes % (auto) 0.1 %; Lymphocytes # (auto) 0.58 K/uL (1.2-3.4); Lymphocytes % (auto) 7.6 %; Mean Corpuscular Hemoglobin 31.2 pg (25-34); Mean Corpuscular Hgb Conc 33.3 g/dL (32-36); Mean Corpuscular Volume 93.7 fL (80-100); Mean Platelet Volume 10.2 fL (7.4-10.4); Monocytes # (auto) 1.36 K/uL (0.11-0.59); Monocytes % (auto) 17.9 %; Neutrophils # (auto) 5.64 K/uL (1.4-6.5); Neutrophils % (auto) 74.3 %; Platelet Count 219 K/uL (130-400); RDW Coefficient of Variation 12.6 % (11.5-14.5); RDW Standard Deviation 43.5 fL (36.4-46.3); Red Blood Count 4.59 M/uL (4.2-5.4)
[2021-06-02 16:02] LABS: Albumin Level 2.6 gm/dl (3.4-5.0); Aspartate Aminotransferase 25 U/L (15-37); BUN Creatinine Ratio 13.5 (10-20); Blood Urea Nitrogen 7 mg/dl (7-18); Carbon Dioxide 28 mmol/L (21-32); Chloride 103 mmol/L (98-107); Est GFR (African American) 142.6 ml/min; Glucose 117 mg/dl (70-99); Lipase 103 U/L (73-393); Potassium 3.3 mmol/L (3.5-5.1); Sodium 140 mmol/L (136-145)
[2021-06-02 16:07] LABS: Alanine Aminotransferase 27 U/L (12-78); Albumin Globulin Ratio 0.5 (0.9-2); Alkaline Phosphatase 127 U/L (45-117); Bilirubin,Total 0.3 mg/dl (0.2-1); Globulin 4.8 gm/dl (2.5-4.0); Total Protein 7.4 gm/dl (6.4-8.2); Troponin I < 0.015 ng/ml (0-0.045)
[2021-06-02 16:09] LABS: Oxygen Saturation VBG 76.6 %; pH VBG 7.47 (7.36-7.41)
--- NOTE | 2021-06-02 17:10 | Electrocardiogram Report ---
Test Reason : Blood Pressure : / mmHG Vent. Rate : 102 BPM Atrial Rate : 102 BPM P-R Int : 148 ms QRS Dur : 076 ms QT Int : 360 ms P-R-T Axes : 041 030 021 degrees QTc Int : 469 ms Sinus tachycardia Otherwise normal ECG When compared with ECG of 07-JUL-2019 10:07, T wave inversion no longer evident in Lateral leads Confirmed by Rodrigo Francis ([id number]) on 06/02/2021 5:10:04 PM Referred By: Confirmed By:Rob Francis
[2021-06-02 17:16] LABS: Influenza A virus by PCR Negative (Neg); Influenza B virus by PCR Negative (Neg); RSV by PCR Negative (Neg)
[2021-06-02 17:21] LABS: SARS CoV2 RNA(COVID-19) InHosp POSITIVE (Negative)
[2021-06-02 18:06] LABS: C Reactive Protein 8.73 mg/dl (0-0.29); Ferritin 233.4 ng/ml (8-388)
[2021-06-02] MEDS ORDERED: REMDESIVIR 200 MG in SODIUM CHLORIDE 0.9% 210 ML IV STA (18:31)
[2021-06-02] MEDS ORDERED: dexAMETHasone 4 MG in SYRINGE 0 ML IV ONE (18:32)
--- NOTE | 2021-06-02 18:42 | History & Physical Report ---
Date of Service June 02, 2021 Assessment & Plan (1) COVID: Plan: COVID 19 unvaccinated approximate day of illness - Day #6 - Hypoxia with bilateral air space opacities - Clinically hypovolemic with decrease oral intake - Decadron 10mg IV daily- if candidate for Tocilizumab or Baricitinib decrease dose back to 6- CRP pending on admission - DVT - Lovenox 40mg SQ q12 - PCT <0.5 negative - Self rotation and proning therapy every 2 hours for at least 20 min each po sition - High mortality with her underlying mental challenges and need for care (2) Hypoxia: Plan: Hypoxia with respiratory failure secondary to COVID 19 - On HFNC with 40 L flow and FIO2 50%- Spo2 92-94% - Rapid desaturation when pulling off HFNC - Will need 1:1 care -Albuterol nebulizers scheduled (3) Severe intellectual disabilities: Plan: Acquired after - communicates with sign language and one word (4) Urinary incontinence without sensory awareness: Plan: Voids in adult diapers (5) Complex partial seizure: Plan: Continue Lamotrigine - If patient has breakthrough seizure- load with Keppra (6) Depression with anxiety: Plan: Continue fexofenadine Continue Olanzapine - Ativan for anxiety- IV if not taking PO (7) Hypovolemia: Plan: Secondary to COVID 19 tachypnea and decreased oral intake - IVF overnight back to Euvolemia - Diurese when intravascular repleted History of Present Illness Chief Complaint: SOB Primary Care Provider: Martha Branham MD 36 YOF with past medical history of: Mental retardation acquired after , communicates with one word descriptions and sign language, complex partial seizure . She is accompanied with her dad and her sister. Sister had COVID this past spring and is her caregiver and able to provide most of her care and interactions. Dad and Mom are also sick. Patient is not vaccinated and is on ~ day 1-2 of Ivermectin that was started at home. The patient comes in today with day of illness at approx day #6. Patient sister thinks she started being more fatigued on Sunday where she was also weaker to where she tried to get up and fell. This progressed to not wanting to eat or drink and becoming more agitated, today she checked her HR and pulse oximetry at home with SPO2 reported in the 60s and HR 120s. In the EMD she was noted to be hypoxic to 85% on room air. She had routine labs drawn, was given 6mg of Decadron IV- will give 4mg IV x1 for total of 10mg now, and chest Xray. Her CXR is compatible with COVID 19 and possibly some pulmonary edema. Patient has weak cough and does not expectorate her secretions. She is also noted to have her last seizure in 2019- per review this happened when she was over-excited at [facility]. Patient has a high mortality as she is unable to effectively cough and likely self prone or rotate, her sister will stay with her and provide the 1:1 assistance that she needs. If her Oxygen saturations were to continue to decline on HFNC then will likely need to move to intubation. Will keep on Decadron 10mg IV daily for now, CRP, Fibrinogen, LDH, PCT pending. Discussed treatment options to include steriods, self rotation therapy, oxygen titration and remdisivir. Patient family declines remdisivir. Had discussion with patient's dad who is in the bed next to her, her sister, and mother regarding severity of illness and if fails HFNC will likely need to move straight to intubation with high likely tompkins of not being able to extubate. They understand the situation and want to support her as we can and "do the best we can." As above sister will provide 1:1 care and understands that she can not leave and come back and forth. Discussed with Form Tamping Machine Operator. Allergies Allergy/AdvReac Type Severity Reaction Status Date / Time carbamazepine Allergy Unknown unknown Verified 06/02/21 15:16 amoxicillin AdvReac Intermediate vomiting Verified 06/02/21 15:16 clavulanic acid AdvReac Intermediate vomiting Verified 06/02/21 15:16 lacosamide AdvReac Intermediate nausea Verified 06/02/21 15:16 Home Medications Medication Instructions Recorded Confirmed Type fluoxetine 20 mg/5 mL (4 mg/mL) 40 mg PO DAILY ml 06/18/19 06/02/21 History oral solution lactulose 10 gram/15 mL oral 20 gm PO BID PRN #9862 ml 06/18/19 06/02/21 History solution naltrexone 50 mg tablet 100 mg PO QAM tab 06/18/19 06/02/21 History ondansetron 4 mg disintegrating 4 mg PO Q6H PRN #20 tab 06/18/19 06/02/21 History tablet triamcinolone acetonide 0.1 % 1 appln TOPICAL BID PRN #1 gm 06/23/19 06/02/21 History topical cream olanzapine 20 mg tablet 20 mg PO QPM #90 tab 08/20/19 06/02/21 Rx clonidine HCl 0.1 mg tablet 0.05 mg PO BID #90 tab 09/19/19 06/02/21 Rx diaper,brief,adult,disposable #162 ea 04/08/20 08/26/20 Rx (Briefs, Adult-Extra Large) levetiracetam 1,000 mg tablet 1,000 mg PO BID 30 Days #60 tab 12/29/20 06/02/21 Rx omeprazole 40 mg capsule,delayed 40 mg PO BID #180 cap 01/11/21 06/02/21 Rx release lorazepam 1 mg tablet 0.5 mg PO QID PRN 30 Days #60 tab 03/31/21 06/02/21 Rx fluticasone propionate 50 2 spray INTRANASAL DAILY PRN 06/02/21 06/02/21 History mcg/actuation nasal spray,suspension lamotrigine 200 mg tablet 400 mg PO BID 06/02/21 06/02/21 History lamotrigine 25 mg tablet 25 mg PO QPM 06/02/21 06/02/21 History levetiracetam 500 mg tablet 500 mg PO BID 06/02/21 06/02/21 History montelukast 10 mg tablet 10 mg PO QAM 06/02/21 06/02/21 History olanzapine 10 mg tablet 10 mg PO QAM 06/02/21 06/02/21 History Past Med/Surg History Medical History Calculus of kidney Chronic reflux esophagitis Complex partial seizure Depression with anxiety Dyslipidemia Severe intellectual disabilities Urinary incontinence without sensory awareness Surgical History History of dental surgery History of facial surgery Family History Other Adopted Social History Smoking Status: Never smoker Second Hand Exposure: No; Hx Alcohol Use: No Hx Substance Use: No Visual Impairment: No Limitations Hearing Ability: Normal marital status: Single Current Living Situation: Family current occupational status: disabled Feels Safe at Home: Yes Dental Care, Regularly: Yes Physical Activity Frequency: Daily Seatbelt Use: always Review of Systems Review of Systems: REVIEW OF SYSTEMS: Constitutional: (+) fever, No sweats or chills Eyes: No diplopia, no worsening or blurred vision ENT: normal hearing, no trouble swallowing Respiratory: (+) cough, sputum, dyspnea at rest or on exertion Cardiovascular: No chest pain, tightness or palpitations Abdomen: (+) loss of appetite, No pain, nausea, vomiting, diarrhea or constipation Musculoskeletal: No joint pain, calf pain, swelling Neurologic: (+) weakness and falls, seizures Psychiatric: No anxiety or depression Skin: No rash or itch Physical Exam Physical Exam: PHYSICAL EXAM: General: anxious, mentally challenged Head: normocephalic, atraumatic ENT: mucous membranes dry and cracked Neuro: agitated, attempting to communicate with sister, moves all extremities, no focal deficits Chest: equal rise and fall of the chest, no accessory muscle use, no heaves or thrills, Clear to auscultation, on room air, Cardiac: Regular rate and rhythm, telemetry reviewed-sinus tachycardia, skin warm dry, cap refill <3 seconds, peripheral pulses +2 no JVD, no murmur, no edema GI: difficult exam secondary to agitation, NABS x 4 quadrants, soft, : Spontaneously voiding, incontinent Extremities: Normal inspection, no peripheral edema or erythema, calfs nontender to palpation Psych: Normal mood and affect Skin: abrasion to nose Results & Data Results & Data ([facility] [place]) Vital Signs (Past 12 Hours) Vital Signs Temp Pulse Pulse Resp BP Pulse Ox 06/02/21 18:00 102 H 22 117/81 99 06/02/21 17:00 101 H 29 H 146/93 H 96 06/02/21 16:00 99 H 24 138/85 95 06/02/21 15:52 100 H 30 H 92 06/02/21 15:00 102 H 24 118/71 94 06/02/21 14:46 37.3 C 100 H 28 H 118/80 85 L Laboratory Results Abnormal lab results 06/02/21 06/02/21 06/02/21 Range/Units 15:28 15:28 15:28 Lymph # (Auto) 0.58 L (1.2-3.4) K/uL [place] # (Auto) 1.36 H (0.11-0.59) K/uL VBG pH (7.36-7.41) Potassium 3.3 L (3.5-5.1) mmol/L Creatinine 0.53 L (0.6-1.2) mg/dl Glucose 117 H (70-99) mg/dl Calcium 8.0 L (8.5-10.1) mg/dl Alkaline Phosphatase 127 H (45-117) U/L C-Reactive Protein 8.73 H (0-0.29) mg/dl Albumin 2.6 L (3.4-5.0) gm/dl Globulin 4.8 H (2.5-4.0) gm/dl Albumin/Globulin Ratio 0.5 L (0.9-2) SARS-CoV-2 (PCR) (Negative) 06/02/21 06/02/21 Range/Units 15:30 16:00 Lymph # (Auto) (1.2-3.4) K/uL [place] # (Auto) (0.11-0.59) K/uL VBG pH 7.47 H (7.36-7.41) Potassium (3.5-5.1) mmol/L Creatinine (0.6-1.2) mg/dl Glucose (70-99) mg/dl Calcium (8.5-10.1) mg/dl Alkaline Phosphatase (45-117) U/L C-Reactive Protein (0-0.29) mg/dl Albumin (3.4-5.0) gm/dl Globulin (2.5-4.0) gm/dl Albumin/Globulin Ratio (0.9-2) SARS-CoV-2 (PCR) POSITIVE A* (Negative) Diagnostic Findings Chest X-Ray 06/02/21 14:45 XR chest 1V portable HISTORY: Atypical Chest Pain COMPARISON: Chest 07/15/2017. FINDINGS: No pneumothorax. There are low lung volumes. Moderate S-shaped scoliosis of the thoracolumbar spine is again noted. The heart is enlarged. Diffuse interstitial/vascular thickening with patchy bibasilar airspace opacities. Suspect trace bilateral pleural effusions. IMPRESSION: Interval progression of the diffuse interstitial/vascular thickening and patchy bibasilar airspace opacities. This favors pulmonary edema. A superimposed viral pneumonia could also have a similar appearance. ACT 112: Negative or not required by law. Electronically signed by: Prasanna Reese M.D. 06/02/2021 3:06 PM Medications Administered Discontinued Medications Dexamethasone Sodium Phosphate (DexamethasonePf 10 Mg/Ml Vial) 6 mg IV NOW ONE Stop: 06/02/21 14:47 Last Admin: 06/02/21 15:45 Dose: 6 mg Documented by: [id number] Home Medications fluoxetine 20 mg/5 mL (4 mg/mL) oral solution 40 mg PO DAILY ml 06/18/19 [ History Confirmed 06/02/21] lactulose 10 gram/15 mL oral solution 20 gm PO BID PRN #1892 ml 06/18/19 [History Confirmed 06/02/21] naltrexone 50 mg tablet 100 mg PO QAM tab 06/18/19 [History Confirmed 06/02/21] ondansetron 4 mg disintegrating tablet 4 mg PO Q6H PRN #20 tab 06/18/19 [History Confirmed 06/02/21] triamcinolone acetonide 0.1 % topical cream 1 appln TOPICAL BID PRN #1 gm 06/23/19 [History Confirmed 06/02/21] olanzapine 20 mg tablet 20 mg PO QPM #90 tab 08/20/19 [Rx Confirmed 06/02/21] clonidine HCl 0.1 mg tablet 0.05 mg PO BID #90 tab 09/19/19 [Rx Confirmed 06/02/21] diaper,brief,adult,disposable (Briefs, Adult-Extra Large) #162 ea 04/08/20 [Rx Confirmed 08/26/20] levetiracetam 1,000 mg tablet 1,000 mg PO BID 30 Days #60 tab 12/29/20 [Rx Confirmed 06/02/21] omeprazole 40 mg capsule,delayed release 40 mg PO BID #180 cap 01/11/21 [Rx Confirmed 06/02/21] lorazepam 1 mg tablet 0.5 mg PO QID PRN 30 Days #60 tab 03/31/21 [Rx Confirmed 06/02/21] fluticasone propionate 50 mcg/actuation nasal spray,suspension 2 spray INTRANASAL DAILY PRN 06/02/21 [History Confirmed 06/02/21] lamotrigine 200 mg tablet 400 mg PO BID 06/02/21 [History Confirmed 06/02/21] lamotrigine 25 mg tablet 25 mg PO QPM 06/02/21 [History Confirmed 06/02/21] levetiracetam 500 mg tablet 500 mg PO BID 06/02/21 [History Confirmed 06/02/21] montelukast 10 mg tablet 10 mg PO QAM 06/02/21 [History Confirmed 06/02/21] olanzapine 10 mg tablet 10 mg PO QAM 06/02/21 [History Confirmed 06/02/21] Active Medications Remdesivir 200 mg/ Sodium (Chloride) 250 mls @ 125 mls/hr IV ONE STA; Protocol Stop: 06/02/21 20:30 Dexamethasone 4 mg/ Syringe 1 mls @ 1 mls/min IV ONE ONE Stop: 06/02/21 18:33 ECG Additional Comments: Sinus tachycardia Otherwise normal ECG When compared with ECG of 07-JUL-2019 10:07, T wave inversion no longer evident in Lateral leads Confirmed by Rodrigo Francis ([id number]) on 06/02/2021 5:10:04 PM Code Status & VTE Plan Code Status CODE: FULL VTE: SCDs, Lovenox 40mg SQ q12 VTE Prophylaxis Plan VTE Prophylaxis will be ordered: Yes Supervising Physician Co-Signing Physician Notes Patient seen and examined, chart reviewed, case discussed with SACHA Angulo and I agree with his assessment and plan as above. In brief, patient is a 36yo female with developmental delay presenting with Covid-19. Patient has been ill appx 6 days. Unvaccinated. Father is in bed next to her, ill with covid as well. Patient removing her HFNC in the ER, will need 1:1 care. Sister is willing to stay and assist with care Saturating 92% currently on 30L/min, 50% FiO2 Anxious Dry MM +S1/S2, regular Lungs CTA Abd - soft, NT/ND Ext - warm, palpable pulses Labs and images reviewed Assessment/Plan -Covid-19 management with supplemental O2, attention to positioning and secretion managment -Remainder of plan as above PG Care Time/CCT Total # of Minutes Spent Total Time Spent with Patient: Total time spent is greater than 50% in coordination of care (as documented) at patient's floor/unit and/or counseling patient: Coding Level of Care Code 72114 Initial Inpt Care Lvl 3 Diagnoses COVID U07.1 Hypoxia R09.02 Severe intellectual disabilities F72 Urinary incontinence without sensory awareness N39.42 Complex partial seizure G40.209 Depression with anxiety F41.8 Hypovolemia E86.1
[2021-06-02 19:44] LABS: Fibrinogen 659 mg/dl (184-400)
[2021-06-02] MEDS ORDERED: ONDANSETRON INJ 2 MG/ML 2 ML VIAL IV PRN (22:41)
[2021-06-02] MEDS ORDERED: ACETAMINOPHEN 325 MG TAB PO PRN (22:41)
[2021-06-02] MEDS ORDERED: FLUTICASONE PROPIONATE NA SPR 16 GM BTL NAE PRN (22:41)
[2021-06-02] MEDS ORDERED: SODIUM CHLORIDE 0.9% 10ML FLUSH IV SCH (22:41)
[2021-06-02] MEDS ORDERED: levETIRAcetam 500 MG TAB PO SCH ×2 (22:41→23:30)
[2021-06-02] MEDS ORDERED: LORazepam 0.25 MG/0.5 ML VIAL IV PRN (22:41)
[2021-06-02] MEDS ORDERED: LACTULOSE SYRUP 20 GM/30 ML UDC PO PRN (23:42)
[2021-06-02] MEDS ORDERED: ONDANSETRON 4 MG OD TAB PO PRN (23:44)
[2021-06-02] MEDS: ALBUTEROL 0.5% NEB SOLN 2.5 MG/0.5 ML VIAL NEB SCH (23:51)
[2021-06-03] MEDS: ALBUTEROL 0.5% NEB SOLN 2.5 MG/0.5 ML VIAL NEB SCH ×4 (01:02→20:46)
[2021-06-03] MEDS: LACTATED RINGER'S 1,000 ML IV SCH ×2 (01:10→11:50)
[2021-06-03] MEDS: lamoTRIgine 25 MG TAB PO SCH ×2 (04:00→23:12)
[2021-06-03] MEDS: levETIRAcetam 500 MG TAB PO SCH ×3 (04:00→23:13)
[2021-06-03] MEDS: lamoTRIgine 100 MG TAB PO SCH ×3 (04:00→23:12)
[2021-06-03] MEDS: cloNIDine HCL 0.1 MG TAB PO SCH ×3 (04:00→23:10)
[2021-06-03] MEDS: OLANZapine 20 MG TABLET PO SCH ×2 (04:00→23:13)
[2021-06-03] MEDS: PANTOprazole 40 MG TAB PO SCH ×3 (04:15→23:13)
[2021-06-03] MEDS: ENOXAPARIN INJ 40 MG/0.4 ML SYR SQ SCH ×3 (05:41→23:10)
--- NOTE | 2021-06-03 08:05 | Hospitalist Progress Note ---
Date of Service June 03, 2021 Assessment & Plan (1) COVID: Plan: COVID 19 unvaccinated approximate day of illness - Day #7 - Hypoxia with bilateral air space opacities - Clinically hypovolemic with decrease oral intake- improved but remains with no urine overnight - Decadron 10mg IV daily- if candidate for Tocilizumab or Baricitinib decrease dose back to 6- CRP 8.7 on admission recheck today is pending - DVT - Lovenox 40mg SQ q12 - PCT <0.5 negative - Self rotation and proning therapy every 2 hours for at least 20 min each position- Helping and appreciate supportive care with sister - High mortality with her underlying mental challenges and need for care - Pulmonary consulted 06/03/21 for evaluation of Toci/baracitinib dosing (2) Hypoxia: Plan: Hypoxia with respiratory failure secondary to COVID 19 - On HFNC with 30 L flow and FIO2 50%- Spo2 92-94% - Rapid desaturation when pulling off HFNC - continue need 1:1 care -Albuterol nebulizers scheduled - No acute events overnight- continue supportive efforts (3) Severe intellectual disabilities: Plan: Acquired after - communicates with sign language and one word - Continue with medical non-violent restraints- renewed and reviewed (4) Urinary incontinence without sensory awareness: Plan: Voids in adult diapers (5) Complex partial seizure: Plan: Continue Lamotrigine and Keppra - If patient has breakthrough seizure- increase Keppra with 2GM load (6) Depression with anxiety: Plan: Continue fexofenadine Continue Olanzapine - Ativan for anxiety- IV if not taking PO - Doing well this morning- required no PRN Ativan overnight (7) Hypovolemia: Plan: Secondary to COVID 19 tachypnea and decreased oral intake - IVF overnight back to Euvolemia - Patient appears better hydrated today- sister and nursing report no voids overnight - 250 ml bolus of LR now bladder scan - Diurese when intravascular repleted Admission and Anticipated Discharge Date Admission Date: June 02, 2021 Supervising Physician Co-Signing Physician Notes SACHA Supervision note: I have personally seen and examined the patient and discussed and verified the silver points of the history and physical along with the plan with SACHA Angulo with the following exceptions and/or additions: Patient pleasant and awake and alert. Her sister and father are at the bedside. Sister reports that patient has not urinated since last night. Drinking and eating slightly. Vitals reviewed Gen: alert, obese NAD HEENT: Anicteric sclerae, EOMI CV: RRR no mgr nl S1S2 Pulm: CTAB no wcr Abd: +BS soft NT ND no masses or hernias Ext: No edema Skin: No rashes, warm/dry Neuro: Moves all extremities 36-year-old female here with Covid-19 pneumonia with acute respiratory failure with hypoxia Continue care as noted above Subjective COVID Day~7 ; HD #1 Patient sleepin on arrival to room. Sister remains at the bedside providing her support and assisting with rolling, pulmonary toileting, and feedings. Her oxygen saturations remain in the low 90s with HFNC now up to 30L and FIO2 50%. Her CRP on admission was 8.8 repeat this morning is pending. Will place pulmonary consult for evaluation of adding Tocilizumab or Baricitinib. If patient a candidate will decrease her Decadron back to 6mg IV daily. Patient has received maintenence IVF through PM with sister assisting with oral intake. Her mucous membranes are much improved since admission. She remains with right arm in restraint to keep from pulling lines and HFNC. She has been coughing and rolling on her sides for short times with noted increase in her oxygneation at times to >94%. Patient remains tenuous and dependant on aggressive pulmonary therapy and support. She is roomed in with her dad as well. Family updated at bedside. Remains full code Review of Systems Review of Systems: REVIEW OF SYSTEMS: Constitutional: No fevers, sweats or chills Eyes: No diplopia, no worsening or blurred vision ENT: normal hearing, no trouble swallowing Respiratory: (+) cough, sputum, dyspnea at rest or on exertion Cardiovascular: No chest pain, tightness or palpitations Abdomen: (+) loss of appetite, No pain, nausea, vomiting, diarrhea or const ipation Musculoskeletal: No joint pain, calf pain, swelling Neurologic: (+) weakness and falls, seizures Psychiatric: anxiety resolving Skin: No rash or itch Physical Exam Physical Exam: PHYSICAL EXAM: General: She is calmer and more cooperative this morning than on admission Head: normocephalic, atraumatic ENT: mucous membranes moist Neuro: agitated, attempting to communicate with sister, moves all extremities, no focal deficits Chest: equal rise and fall of the chest, no accessory muscle use, scattered crackles difficult exam with disposable stethoscope and poor inspiratory effort Cardiac: Regular rate and rhythm, telemetry reviewed-sinus tachycardia, skin warm dry, cap refill <3 seconds, peripheral pulses +2 no JVD, no murmur, no edema GI: difficult exam secondary to agitation, NABS x 4 quadrants, soft, : No reported voids overnight Extremities: Normal inspection, no peripheral edema or erythema, calfs nontender to palpation Psych: Normal mood and affect Skin: abrasion to nose Results & Data Results & Data ([facility]) Vital Signs (Past 12 Hours) Vital Signs Pulse Resp Pulse Ox Pulse Ox 06/03/21 07:08 68 22 92 06/03/21 02:32 73 22 92 06/03/21 02:00 73 20 92 06/02/21 23:52 89 26 H 95 06/02/21 22:41 92 Laboratory Results Abnormal lab results 06/02/21 06/02/21 06/02/21 Range/Units 15:28 15:28 15:28 Lymph # (Auto) 0.58 L (1.2-3.4) K/uL [place] # (Auto) 1.36 H (0.11-0.59) K/uL Fibrinogen (184-400) mg/dl VBG pH (7.36-7.41) Potassium 3.3 L (3.5-5.1) mmol/L Creatinine 0.53 L (0.6-1.2) mg/dl Glucose 117 H (70-99) mg/dl Calcium 8.0 L (8.5-10.1) mg/dl Alkaline Phosphatase 127 H (45-117) U/L Lactate Dehydrogenase (84-246) U/L C-Reactive Protein 8.73 H (0-0.29) mg/dl Albumin 2.6 L (3.4-5.0) gm/dl Globulin 4.8 H (2.5-4.0) gm/dl Albumin/Globulin Ratio 0.5 L (0.9-2) SARS-CoV-2 (PCR) (Negative) 06/02/21 06/02/21 06/02/21 Range/Units 15:30 16:00 18:56 Lymph # (Auto) (1.2-3.4) K/uL [place] # (Auto) (0.11-0.59) K/uL Fibrinogen 659 H (184-400) mg/dl VBG pH 7.47 H (7.36-7.41) Potassium (3.5-5.1) mmol/L Creatinine (0.6-1.2) mg/dl Glucose (70-99) mg/dl Calcium (8.5-10.1) mg/dl Alkaline Phosphatase (45-117) U/L Lactate Dehydrogenase (84-246) U/L C-Reactive Protein (0-0.29) mg/dl Albumin (3.4-5.0) gm/dl Globulin (2.5-4.0) gm/dl Albumin/Globulin Ratio (0.9-2) SARS-CoV-2 (PCR) POSITIVE A* (Negative) 06/02/21 Range/Units 18:56 Lymph # (Auto) (1.2-3.4) K/uL [place] # (Auto) (0.11-0.59) K/uL Fibrinogen (184-400) mg/dl VBG pH (7.36-7.41) Potassium (3.5-5.1) mmol/L Creatinine (0.6-1.2) mg/dl Glucose (70-99) mg/dl Calcium (8.5-10.1) mg/dl Alkaline Phosphatase (45-117) U/L Lactate Dehydrogenase 449 H (84-246) U/L C-Reactive Protein (0-0.29) mg/dl Albumin (3.4-5.0) gm/dl Globulin (2.5-4.0) gm/dl Albumin/Globulin Ratio (0.9-2) SARS-CoV-2 (PCR) (Negative) Diagnostic Findings Chest X-Ray 06/02/21 14:45 XR chest 1V portable HISTORY: Atypical Chest Pain COMPARISON: Chest 07/15/2017. FINDINGS: No pneumothorax. There are low lung volumes. Moderate S-shaped scoliosis of the thoracolumbar spine is again noted. The heart is enlarged. Diffuse interstitial/vascular thickening with patchy bibasilar airspace opacities. Suspect trace bilateral pleural effusions. IMPRESSION: Interval progression of the diffuse interstitial/vascular thickening and patchy bibasilar airspace opacities. This favors pulmonary edema. A superimposed viral pneumonia could also have a similar appearance. ACT 112: Negative or not required by law. Electronically signed by: Prasanna Reese M.D. 06/02/2021 3:06 PM Medications Administered Albuterol (Albuterol 0.5% Neb Soln 2.5 Mg/0.5 Ml Vial) 2.5 mg NEB Q6R PEREZ Stop: 07/02/21 22:40 Last Admin: 06/03/21 07:07 Dose: 2.5 mg Documented by: [id number] Admin: 06/03/21 01:02 Dose: Not Given Documented by: [id number] Admin: 06/02/21 23:51 Dose: 2.5 mg Documented by: [id number] Clonidine HCl (Clonidine Hcl 0.1 Mg Tab) 0.05 mg PO BID PEREZ Stop: 07/02/21 23:29 Last Admin: 06/03/21 04:00 Dose: 0.05 mg Documented by: [id number] Enoxaparin Sodium (Enoxaparin Inj 40 Mg/0.4 Ml Syr) 40 mg SQ Q12 PEREZ Stop: 07/03/21 00:14 Last Admin: 06/03/21 05:41 Dose: 40 mg Documented by: [id number] Lactated Ringer's (Lr) 1,000 mls @ 80 mls/hr IV .[id number] PEREZ Stop: 07/02/21 22:40 Last Admin: 06/03/21 01:10 Dose: 80 mls/hr Documented by: [id number] Lamotrigine (Lamotrigine 100 Mg Tab) 400 mg PO BID PEREZ Stop: 07/02/21 23:29 Last Admin: 06/03/21 04:00 Dose: 400 mg Documented by: [id number] Lamotrigine (Lamotrigine 25 Mg Tab) 25 mg PO QPM PEREZ Stop: 07/02/21 23:29 Last Admin: 06/03/21 04:00 Dose: 25 mg Documented by: [id number] Levetiracetam (Levetiracetam 500 Mg Tab) 1,500 mg PO BID PEREZ Stop: 07/02/21 23:29 Last Admin: 06/03/21 04:00 Dose: 1,500 mg Documented by: [id number] Olanzapine (Olanzapine 20 Mg Tablet) 20 mg PO QPM PEREZ Stop: 07/02/21 23:29 Last Admin: 06/03/21 04:00 Dose: 20 mg Documented by: [id number] Pantoprazole Sodium (Pantoprazole 40 Mg Tab) 40 mg PO BID PEREZ; Protocol Stop: 07/02/21 23:29 Last Admin: 06/03/21 04:15 Dose: 40 mg Documented by: [id number] Discontinued Medications Dexamethasone Sodium Phosphate (DexamethasonePf 10 Mg/Ml Vial) 6 mg IV NOW ONE Stop: 06/02/21 14:47 Last Admin: 06/02/21 15:45 Dose: 6 mg Documented by: [id number] Remdesivir 200 mg/ Sodium (Chloride) 250 mls @ 125 mls/hr IV ONE STA; Protocol Stop: 06/02/21 20:30 Last Admin: 06/02/21 21:11 Dose: Not Given Documented by: [id number] Dexamethasone 4 mg/ Syringe 1 mls @ 1 mls/min IV ONE ONE Stop: 06/02/21 18:33 Last Admin: 06/02/21 20:51 Dose: 1 mls/min Documented by: [id number] PG Care Time/CCT Total # of Minutes Spent Total Time Spent with Patient: Total time spent is greater than 50% in coordination of care (as documented) at patient's floor/unit and/or counseling patient: Coding Level of Care Code 40257 Subseq Hosp Care Lvl 3 Diagnoses COVID U07.1 Hypoxia R09.02 Severe intellectual disabilities F72 Urinary incontinence without sensory awareness N39.42 Complex partial seizure G40.209 Depression with anxiety F41.8 Hypovolemia E86.1
[2021-06-03] MEDS ORDERED: dexAMETHasone 10 MG in SYRINGE 0 ML IV SCH (09:00)
[2021-06-03] MEDS ORDERED: LACTATED RINGER'S 250 ML IV ONE (10:04)
[2021-06-03] MEDS: PANTOprazole 40 MG in SYRINGE 0 ML IV SCH (10:58)
[2021-06-03] MEDS: NALTREXONE HCL 50 MG TAB PO SCH (11:11)
[2021-06-03] MEDS: MONTELUKAST SODIUM 10 MG TABLET PO SCH (11:11)
[2021-06-03] MEDS: OLANZapine 10 MG TAB PO SCH (11:12)
[2021-06-03] MEDS: FLUoxetine HCL 20 MG/5 ML 120ML BTL PO SCH (11:15)
[2021-06-03] MEDS ORDERED: BARICITINIB COMMUNICATION ONE (11:50)
[2021-06-03] MEDS: 4mg Daily x 14 days (eGFR >60 mL/min/1.73m2) PO SCH (13:45)
[2021-06-04] MEDS: ALBUTEROL 0.5% NEB SOLN 2.5 MG/0.5 ML VIAL NEB SCH ×4 (01:33→19:32)
[2021-06-04] MEDS: LACTATED RINGER'S 1,000 ML IV SCH ×2 (06:36→12:03)
[2021-06-04] MEDS: dexAMETHasone 6 MG in SYRINGE 0 ML IV SCH (09:50)
[2021-06-04] MEDS: 4mg Daily x 14 days (eGFR >60 mL/min/1.73m2) PO SCH (09:51)
[2021-06-04] MEDS: cloNIDine HCL 0.1 MG TAB PO SCH ×2 (09:52→21:50)
[2021-06-04] MEDS: NALTREXONE HCL 50 MG TAB PO SCH (09:53)
[2021-06-04] MEDS: OLANZapine 10 MG TAB PO SCH (09:53)
[2021-06-04] MEDS: MONTELUKAST SODIUM 10 MG TABLET PO SCH (09:53)
[2021-06-04] MEDS: lamoTRIgine 100 MG TAB PO SCH ×2 (09:53→21:54)
[2021-06-04] MEDS: PANTOprazole 40 MG TAB PO SCH ×2 (09:53→21:52)
[2021-06-04] MEDS: levETIRAcetam 500 MG TAB PO SCH ×2 (09:54→21:53)
[2021-06-04] MEDS: ENOXAPARIN INJ 40 MG/0.4 ML SYR SQ SCH ×2 (09:59→21:51)
[2021-06-04 10:25] LABS: Basophils # (auto) 0.01 K/uL (0-0.2); Basophils % (auto) 0.1 %; Hematocrit (blood only) 40.1 % (37-47); Hemoglobin 12.8 g/dL (12.0-16.0); Immature Granulocytes # (auto) 0.02 K/uL (0.00-0.02); Immature Granulocytes % (auto) 0.3 %; Lymphocytes # (auto) 1.23 K/uL (1.2-3.4); Lymphocytes % (auto) 16.7 %; Mean Corpuscular Hemoglobin 30.4 pg (25-34); Mean Corpuscular Hgb Conc 31.9 g/dL (32-36); Mean Corpuscular Volume 95.2 fL (80-100); Mean Platelet Volume 10.1 fL (7.4-10.4); Monocytes % (auto) 16.3 %; Neutrophils # (auto) 4.91 K/uL (1.4-6.5); Neutrophils % (auto) 66.6 %; Platelet Count 285 K/uL (130-400); RDW Coefficient of Variation 12.6 % (11.5-14.5); RDW Standard Deviation 43.6 fL (36.4-46.3); Red Blood Count 4.21 M/uL (4.2-5.4); White Blood Count 7.37 K/uL (4.8-10.8)
[2021-06-04 10:58] LABS: BUN Creatinine Ratio 18.6 (10-20); Blood Urea Nitrogen 11 mg/dl (7-18); C Reactive Protein 1.65 mg/dl (0-0.29); Calcium 8.6 mg/dl (8.5-10.1); Carbon Dioxide 30 mmol/L (21-32); Chloride 106 mmol/L (98-107); Est GFR (African American) 136.1 ml/min; Est GFR (Non-African American) 117.5 ml/min; Glucose 140 mg/dl (70-99); Magnesium 2.3 mg/dl (1.8-2.4); Potassium 3.3 mmol/L (3.5-5.1); Sodium 141 mmol/L (136-145)
[2021-06-04] MEDS: FLUoxetine HCL 20 MG/5 ML 120ML BTL PO SCH (11:26)
[2021-06-04] MEDS: PANTOprazole 40 MG in SYRINGE 0 ML IV SCH (11:41)
--- NOTE | 2021-06-04 15:05 | Hospitalist Progress Note ---
Date of Service June 04, 2021 Assessment & Plan (1) COVID: Plan: COVID 19 unvaccinated approximate day of illness - Day #8 - down to 2L NC today, no distress - continue dexamethasone 6mg daily, started on baricitinib - DVT - Lovenox 40mg SQ q12, would recommend Xarelto on discharge for 30 days as she is in bed - PCT <0.5 negative attempt to wean down to room air, if stable for 24 hours then d/c to home (2) Hypoxia: Plan: Hypoxia with respiratory failure secondary to COVID 19 - On HFNC with 30 L flow and FIO2 50%- Spo2 92-94% now down to 2L, no distress, minimal cough wean down to room air if possible and discharge home continue dexamethasone and baricitinib (3) Severe intellectual disabilities: Plan: Acquired after - communicates with sign language and one word - Continue with medical non-violent restraints- renewed and reviewed sister in the room as caregiver which helps a lot (4) Urinary incontinence without sensory awareness: Plan: Voids in adult diapers (5) Complex partial seizure: Plan: Continue Lamotrigine and Keppra - If patient has breakthrough seizure- increase Keppra with 2GM load (6) Depression with anxiety: Plan: Continue fexofenadine Continue Olanzapine - Ativan for anxiety- IV if not taking PO - Doing well this morning- required no PRN Ativan overnight (7) Hypovolemia: Plan: resolved, stop fluids, she is making more urine, drinking better today Plan: anticipate d/c to home in 1-2 days, wean down to room air Admission and Anticipated Discharge Date Admission Date: June 02, 2021 Subjective patient is doing better, down to 2L NC, no distress at all, just some compliance issues keeping oxygen in place eating and drinking better per her sister, which is a good sign, can stop fluids continue soft restraints for today, but can likely remove them tomorrow if she is off oxygen reviewed chart and labs can go home once off oxygen Review of Systems Review of Systems: Unobtainable due to cognitive status (cerebral palsy) Physical Exam Physical Exam: General: well developed, obese female, developmentally delayed, no distress, very pleasant Neck: supple, trachea midline, normal thyroid Lungs: clear to auscultation bilaterally, normal respiratory effort, no accessory muscle use, no distress, + cough Heart: regular S1 and S2, no murmur, peripheral pulses normal, capillary refill normal, no edema Abdomen: soft, NT, ND, + BS, no hepatomegaly, normal to percussion Extremities: normal in appearance, no cyanosis, no petechiae, strength is 5/5 bi laterally Neuro: awake, moves all extremities, no focal motor deficits, CN II-XII intact Skin: warm, dry, no rash, normal turgor Psych: Awake, oriented to person, limited verbal responses Results & Data Results & Data ([facility]) Vital Signs (Past 12 Hours) Vital Signs Temp Pulse Pulse Resp BP BP Pulse Ox 06/04/21 09:38 36.8 C 85 20 98/68 L 92 06/04/21 08:00 67 06/04/21 06:15 62 15 92 06/04/21 04:00 36.7 C 64 20 101/66 100 Laboratory Results Laboratory Results - last 24 hr 06/04/21 06/04/21 09:47 09:47 WBC 7.37 RBC 4.21 Hgb 12.8 Hct 40.1 MCV 95.2 MCH 30.4 MCHC 31.9 L RDW Std Deviation 43.6 RDW Coeff of Pawel 12.6 Plt Count 285 MPV 10.1 Immature Gran % (Auto) 0.3 Neut % (Auto) 66.6 Lymph % (Auto) 16.7 [place] % (Auto) 16.3 Eos % (Auto) 0.0 Baso % (Auto) 0.1 Neut # (Auto) 4.91 Lymph # (Auto) 1.23 [place] # (Auto) 1.20 H Eos # (Auto) 0.00 Baso # (Auto) 0.01 Immature Gran # (Auto) 0.02 Sodium 141 Potassium 3.3 L Chloride 106 Carbon Dioxide 30 Anion Gap 5.0 BUN 11 D Creatinine 0.61 Est Cr Clr Drug Dosing Not Reportable Est GFR ( Amer) 136.1 Est GFR (Non-Af Amer) 117.5 BUN/Creatinine Ratio 18.6 Glucose 140 H Calcium 8.6 Magnesium 2.3 C-Reactive Protein 1.65 H Specimen Hemolysis Medications Administered Current Inpatient Medications Acetaminophen (Acetaminophen 325 Mg Tab) 650 mg PO Q4H PRN PRN Reason: Pain or Fever Stop: 07/02/21 22:40 Albuterol (Albuterol 0.5% Neb Soln 2.5 Mg/0.5 Ml Vial) 2.5 mg NEB Q6R [facility] Stop: 07/02/21 22:40 Last Admin: 06/04/21 06:12 Dose: 2.5 mg Documented by: Baricitinib (4mg Daily X 14 Days (Egfr >60 Ml/Min/1.73m2)) 4 mg PO DAILY [facility]; Protocol Stop: 06/17/21 12:59 Last Admin: 06/04/21 09:51 Dose: 4 mg Documented by: Clonidine HCl (Clonidine Hcl 0.1 Mg Tab) 0.05 mg PO BID [facility] Stop: 07/02/21 23:29 Last Admin: 06/04/21 09:52 Dose: Not Given Documented by: Enoxaparin Sodium (Enoxaparin Inj 40 Mg/0.4 Ml Syr) 40 mg SQ Q12 [facility] Stop: 07/03/21 00:14 Last Admin: 06/04/21 09:59 Dose: 40 mg Documented by: Fluoxetine HCl (Fluoxetine Hcl 20 Mg/5 Ml 120ml Btl) 40 mg PO DAILY [facility] Stop: 07/03/21 08:59 Last Admin: 06/04/21 11:26 Dose: 40 mg Documented by: Fluticasone Propionate (Fluticasone Propionate Na Spr 16 Gm Btl) 2 sprays DEX DAILY PRN PRN Reason: Congestion Stop: 07/02/21 22:40 Lorazepam (Ativan) 0.25 mg in 0.5 mls @ 0.5 mls/min IV Q8 PRN PRN Reason: agitation/anxiety Stop: 07/02/21 22:40 Pantoprazole Sodium 40 mg/ (Syringe) 10 mls @ 5 mls/min IV DAILY@1100 [facility] Stop: 07/03/21 10:59 Last Admin: 06/04/21 11:41 Dose: 5 mls/min Documented by: Dexamethasone 6 mg/ Syringe 1.5 mls @ 1 mls/min IV Q24H [facility] Stop: 07/04/21 08:59 Last Admin: 06/04/21 09:50 Dose: 1 mls/min Documented by: Lactulose (Lactulose Syrup 20 Gm/30 Ml Udc) 20 gm PO BID PRN PRN Reason: Constipation Stop: 07/02/21 23:41 Lamotrigine (Lamotrigine 100 Mg Tab) 400 mg PO BID [facility] Stop: 07/02/21 23:29 Last Admin: 06/04/21 09:53 Dose: 400 mg Documented by: Lamotrigine (Lamotrigine 25 Mg Tab) 25 mg PO QPM [facility] Stop: 07/02/21 23:29 Last Admin: 06/03/21 23:12 Dose: 25 mg Documented by: Levetiracetam (Levetiracetam 500 Mg Tab) 1,500 mg PO BID [facility] Stop: 07/02/21 23:29 Last Admin: 06/04/21 09:54 Dose: 1,500 mg Documented by: Lorazepam (Lorazepam 0.5 Mg Tab) 0.5 mg PO QID PRN PRN Reason: Anxiety Stop: 07/04/21 06:40 Montelukast Sodium (Montelukast Sodium 10 Mg Tablet) 10 mg PO QAM [facility] Stop: 07/03/21 08:59 Last Admin: 06/04/21 09:53 Dose: 10 mg Documented by: Naltrexone HCl (Naltrexone Hcl 50 Mg Tab) [facility] Stop: 07/03/21 08:59 Last Admin: 06/04/21 09:53 Dose: 100 mg Documented by: Olanzapine (Olanzapine 10 Mg Tab) 10 mg PO QAM [facility] Stop: 07/03/21 08:59 Last Admin: 06/04/21 09:53 Dose: 10 mg Documented by: Olanzapine (Olanzapine 20 Mg Tablet) 20 mg PO QPM [facility] Stop: 07/02/21 23:29 Last Admin: 06/03/21 23:13 Dose: 20 mg Documented by: Ondansetron HCl (Ondansetron 4 Mg Od Tab) 4 mg PO Q6H PRN PRN Reason: Nausea And Vomiting Stop: 07/02/21 23:43 Ondansetron HCl (Ondansetron Inj 2 Mg/Ml 2 Ml Vial) 4 mg IV Q6H PRN PRN Reason: Nausea Stop: 07/02/21 22:40 Pantoprazole Sodium (Pantoprazole 40 Mg Tab) 40 mg PO BID [facility]; Protocol Stop: 07/02/21 23:29 Last Admin: 06/04/21 09:53 Dose: 40 mg Documented by: PG Care Time/CCT Total # of Minutes Spent Total Time Spent with Patient: Total time spent is greater than 50% in coordination of care (as documented) at patient's floor/unit and/or counseling patient: Coding Level of Care Code 24347 Subseq Hosp Care Lvl 3 Diagnoses COVID U07.1 Hypoxia R09.02 Severe intellectual disabilities F72 Urinary incontinence without sensory awareness N39.42 Complex partial seizure G40.209 Depression with anxiety F41.8 Hypovolemia E86.1
[2021-06-04] MEDS: lamoTRIgine 25 MG TAB PO SCH (21:53)
[2021-06-04] MEDS: OLANZapine 20 MG TABLET PO SCH (21:53)
[2021-06-05] MEDS: ALBUTEROL 0.5% NEB SOLN 2.5 MG/0.5 ML VIAL NEB SCH ×4 (00:51→20:15)
[2021-06-05 08:58] LABS: Basophils # (auto) 0.01 K/uL (0-0.2); Basophils % (auto) 0.2 %; Hematocrit (blood only) 41.3 % (37-47); Hemoglobin 13.4 g/dL (12.0-16.0); Immature Granulocytes # (auto) 0.03 K/uL (0.00-0.02); Immature Granulocytes % (auto) 0.5 %; Lymphocytes # (auto) 1.92 K/uL (1.2-3.4); Lymphocytes % (auto) 34.8 %; Mean Corpuscular Hemoglobin 30.8 pg (25-34); Mean Corpuscular Hgb Conc 32.4 g/dL (32-36); Mean Corpuscular Volume 94.9 fL (80-100); Mean Platelet Volume 9.8 fL (7.4-10.4); Monocytes # (auto) 0.92 K/uL (0.11-0.59); Monocytes % (auto) 16.7 %; Neutrophils # (auto) 2.64 K/uL (1.4-6.5); Neutrophils % (auto) 47.8 %; Platelet Count 300 K/uL (130-400); RDW Coefficient of Variation 12.6 % (11.5-14.5); RDW Standard Deviation 44.3 fL (36.4-46.3); Red Blood Count 4.35 M/uL (4.2-5.4); White Blood Count 5.52 K/uL (4.8-10.8)
[2021-06-05] MEDS: FLUoxetine HCL 20 MG/5 ML 120ML BTL PO SCH (09:11)
[2021-06-05] MEDS: dexAMETHasone 6 MG in SYRINGE 0 ML IV SCH (09:12)
[2021-06-05] MEDS: NALTREXONE HCL 50 MG TAB PO SCH (09:12)
[2021-06-05] MEDS: levETIRAcetam 500 MG TAB PO SCH ×2 (09:12→20:45)
[2021-06-05] MEDS: cloNIDine HCL 0.1 MG TAB PO SCH ×2 (09:12→22:08)
[2021-06-05] MEDS: ENOXAPARIN INJ 40 MG/0.4 ML SYR SQ SCH ×2 (09:12→20:46)
[2021-06-05] MEDS: MONTELUKAST SODIUM 10 MG TABLET PO SCH (09:12)
[2021-06-05] MEDS: PANTOprazole 40 MG TAB PO SCH ×2 (09:12→20:44)
[2021-06-05] MEDS: OLANZapine 10 MG TAB PO SCH (09:12)
[2021-06-05] MEDS: 4mg Daily x 14 days (eGFR >60 mL/min/1.73m2) PO SCH (09:13)
[2021-06-05] MEDS: lamoTRIgine 100 MG TAB PO SCH ×2 (09:13→20:45)
[2021-06-05 09:24] LABS: BUN Creatinine Ratio 19.5 (10-20); Blood Urea Nitrogen 13 mg/dl (7-18); C Reactive Protein 0.65 mg/dl (0-0.29); Calcium 8.6 mg/dl (8.5-10.1); Carbon Dioxide 30 mmol/L (21-32); Chloride 107 mmol/L (98-107); Est GFR (African American) 133.3 ml/min; Glucose 91 mg/dl (70-99); Magnesium 2.1 mg/dl (1.8-2.4); Potassium 3.4 mmol/L (3.5-5.1); Sodium 144 mmol/L (136-145)
[2021-06-05] MEDS: PANTOprazole 40 MG in SYRINGE 0 ML IV SCH (10:42)
--- NOTE | 2021-06-05 15:19 | Hospitalist Progress Note ---
Date of Service June 05, 2021 Assessment & Plan (1) COVID: Plan: COVID 19 unvaccinated approximate day of illness - Day #9 - down to room air today, no distress at all, would be appropriate for discharge tomorrow, not sure if family available to provide care at home - continue dexamethasone 6mg daily, started on baricitinib (continue while admitted) - DVT - Lovenox 40mg SQ q12, would recommend Xarelto on discharge for 30 days as she is in bed - PCT <0.5 negative CRP is < 1 today (2) Hypoxia: Plan: Hypoxia with respiratory failure secondary to COVID 19 - was on HFNC with 30 L flow and FIO2 50%- Spo2 92-94% now down to room air, no distress, minimal cough continue dexamethasone and baricitinib (3) Severe intellectual disabilities: Plan: Acquired after - communicates with sign language and one word - stop restraints as nasal canula removed sister in the room as caregiver which helps a lot (4) Urinary incontinence without sensory awareness: Plan: Voids in adult diapers (5) Complex partial seizure: Plan: Continue Lamotrigine and Keppra - If patient has breakthrough seizure- increase Keppra with 2GM load (6) Depression with anxiety: Plan: Continue fexofenadine Continue Olanzapine - Ativan for anxiety- IV if not taking PO - Doing well this morning- required no PRN Ativan overnight (7) Hypovolemia: Plan: resolved, stop fluids, she is making more urine, drinking better past two days Plan: anticipate d/c to home but needs family that can take care of her discuss again with her sister tomorrow Admission and Anticipated Discharge Date Admission Date: June 02, 2021 Subjective patient doing great today, off of oxygen, no distress discussed with her sister at the bedside, we will stop tele, remove restraints, keep her off oxygen she knows that she can check her oxygen at any time and place her back on 2L eating and drinking much better discussed that she would likely be stable for discharge tomorrow the patient's mother too ill at home right now to take care of her, trying to get both girls out simultaneously will try to make that happen in 1-2 days but not sure Review of Systems Review of Systems: Unobtainable due to cognitive status Physical Exam Physical Exam: General: well developed, obese female, developmentally delayed, no distress, very pleasant Neck: supple, trachea midline, normal thyroid Lungs: clear to auscultation bilaterally, normal respiratory effort, no accessory muscle use, no distress, + cough Heart: regular S1 and S2, no murmur, peripheral pulses normal, capillary refill normal, no edema Abdomen: soft, NT, ND, + BS, no hepatomegaly, normal to percussion Extremities: normal in appearance, no cyanosis, no petechiae, strength is 5/5 bilaterally Neuro: awake, moves all extremities, no focal motor deficits, CN II-XII intact Skin: warm, dry, no rash, normal turgor Psych: Awake, oriented to person, limited verbal responses Results & Data Results & Data ([facility]) Vital Signs (Past 12 Hours) Vital Signs Temp Pulse Resp BP Pulse Ox 06/05/21 12:41 106 H 20 97 06/05/21 11:58 37.2 C 74 17 93/62 L 98 06/05/21 07:45 78 20 96 06/05/21 05:10 36.8 C 74 20 116/74 99 Laboratory Results Laboratory Results - last 24 hr 06/05/21 06/05/21 08:27 08:27 WBC 5.52 RBC 4.35 Hgb 13.4 Hct 41.3 MCV 94.9 MCH 30.8 MCHC 32.4 RDW Std Deviation 44.3 RDW Coeff of Pawel 12.6 Plt Count 300 MPV 9.8 Immature Gran % (Auto) 0.5 Neut % (Auto) 47.8 Lymph % (Auto) 34.8 [place] % (Auto) 16.7 Eos % (Auto) 0.0 Baso % (Auto) 0.2 Neut # (Auto) 2.64 Lymph # (Auto) 1.92 [place] # (Auto) 0.92 H Eos # (Auto) 0.00 Baso # (Auto) 0.01 Immature Gran # (Auto) 0.03 H Sodium 144 Potassium 3.4 L Chloride 107 Carbon Dioxide 30 Anion Gap 7.0 BUN 13 Creatinine 0.65 Est Cr Clr Drug Dosing Not Reportable Est GFR ( Amer) 133.3 Est GFR (Non-Af Amer) 115.0 BUN/Creatinine Ratio 19.5 Glucose 91 Calcium 8.6 Magnesium 2.1 C-Reactive Protein 0.65 H Medications Administered Current Inpatient Medications Acetaminophen (Acetaminophen 325 Mg Tab) 650 mg PO Q4H PRN PRN Reason: Pain or Fever Stop: 07/02/21 22:40 Albuterol (Albuterol 0.5% Neb Soln 2.5 Mg/0.5 Ml Vial) 2.5 mg NEB Q6R [facility] Stop: 07/02/21 22:40 Last Admin: 06/05/21 12:40 Dose: 2.5 mg Documented by: Baricitinib (4mg Daily X 14 Days (Egfr >60 Ml/Min/1.73m2)) 4 mg PO DAILY [facility]; Protocol Stop: 06/17/21 12:59 Last Admin: 06/05/21 09:13 Dose: 4 mg Documented by: Clonidine HCl (Clonidine Hcl 0.1 Mg Tab) 0.05 mg PO BID [facility] Stop: 07/02/21 23:29 Last Admin: 06/05/21 09:12 Dose: 0.05 mg Documented by: Enoxaparin Sodium (Enoxaparin Inj 40 Mg/0.4 Ml Syr) 40 mg SQ Q12 [facility] Stop: 07/03/21 00:14 Last Admin: 06/05/21 09:12 Dose: 40 mg Documented by: Fluoxetine HCl (Fluoxetine Hcl 20 Mg/5 Ml 120ml Btl) 40 mg PO DAILY [facility] Stop: 07/03/21 08:59 Last Admin: 06/05/21 09:11 Dose: 40 mg Documented by: Fluticasone Propionate (Fluticasone Propionate Na Spr 16 Gm Btl) 2 sprays DEX DAILY PRN PRN Reason: Congestion Stop: 07/02/21 22:40 Lorazepam (Ativan) 0.25 mg in 0.5 mls @ 0.5 mls/min IV Q8 PRN PRN Reason: agitation/anxiety Stop: 07/02/21 22:40 Pantoprazole Sodium 40 mg/ (Syringe) 10 mls @ 5 mls/min IV DAILY@1100 [facility] Stop: 07/03/21 10:59 Last Admin: 06/05/21 10:42 Dose: 5 mls/min Documented by: Dexamethasone 6 mg/ Syringe 1.5 mls @ 1 mls/min IV Q24H [facility] Stop: 07/04/21 08:59 Last Admin: 06/05/21 09:12 Dose: 1 mls/min Documented by: Lactulose (Lactulose Syrup 20 Gm/30 Ml Udc) 20 gm PO BID PRN PRN Reason: Constipation Stop: 07/02/21 23:41 Lamotrigine (Lamotrigine 100 Mg Tab) 400 mg PO BID [facility] Stop: 07/02/21 23:29 Last Admin: 06/05/21 09:13 Dose: 400 mg Documented by: Lamotrigine (Lamotrigine 25 Mg Tab) 25 mg PO QPM [facility] Stop: 07/02/21 23:29 Last Admin: 06/04/21 21:53 Dose: 25 mg Documented by: Levetiracetam (Levetiracetam 500 Mg Tab) 1,500 mg PO BID [facility] Stop: 07/02/21 23:29 Last Admin: 06/05/21 09:12 Dose: 1,500 mg Documented by: Lorazepam (Lorazepam 0.5 Mg Tab) 0.5 mg PO QID PRN PRN Reason: Anxiety Stop: 07/04/21 06:40 Montelukast Sodium (Montelukast Sodium 10 Mg Tablet) 10 mg PO [facility] Stop: 07/03/21 08:59 Last Admin: 06/05/21 09:12 Dose: 10 mg Documented by: Naltrexone HCl (Nalt[facility]one Hcl 50 Mg Tab) [facility] Stop: 07/03/21 08:59 Last Admin: 06/05/21 09:12 Dose: 100 mg Documented by: Olanzapine (Olanzapine 10 Mg Tab) 10 mg PO QAM [facility] Stop: 07/03/21 08:59 Last Admin: 06/05/21 09:12 Dose: 10 mg Documented by: Olanzapine (Olanzapine 20 Mg Tablet) 20 mg PO QPM [facility] Stop: 07/02/21 23:29 Last Admin: 06/04/21 21:53 Dose: 20 mg Documented by: Ondansetron HCl (Ondansetron 4 Mg Od Tab) 4 mg PO Q6H PRN PRN Reason: Nausea And Vomiting Stop: 07/02/21 23:43 Ondansetron HCl (Ondansetron Inj 2 Mg/Ml 2 Ml Vial) 4 mg IV Q6H PRN PRN Reason: Nausea Stop: 07/02/21 22:40 Pantoprazole Sodium (Pantoprazole 40 Mg Tab) 40 mg PO BID [facility]; Protocol Stop: 07/02/21 23:29 Last Admin: 06/05/21 09:12 Dose: 40 mg Documented by: PG Care Time/CCT Total # of Minutes Spent Total Time Spent with Patient: Total time spent is greater than 50% in coordination of care (as documented) at patient's floor/unit and/or counseling patient: Coding Level of Care Code 54376 Subseq Hosp Care Lvl 3 Diagnoses COVID U07.1 Hypoxia R09.02 Severe intellectual disabilities F72 Urinary incontinence without sensory awareness N39.42 Complex partial seizure G40.209 Depression with anxiety F41.8 Hypovolemia E86.1
[2021-06-05] MEDS: OLANZapine 20 MG TABLET PO SCH (20:45)
[2021-06-05] MEDS: lamoTRIgine 25 MG TAB PO SCH (20:46)
[2021-06-05] MEDS: LORazepam 0.5 MG TAB PO PRN (22:15)
[2021-06-06] MEDS: ALBUTEROL 0.5% NEB SOLN 2.5 MG/0.5 ML VIAL NEB SCH ×2 (01:34→08:06)
[2021-06-06] MEDS: lamoTRIgine 100 MG TAB PO SCH (08:09)
[2021-06-06] MEDS: PANTOprazole 40 MG TAB PO SCH (08:09)
[2021-06-06] MEDS: NALTREXONE HCL 50 MG TAB PO SCH (08:09)
[2021-06-06] MEDS: levETIRAcetam 500 MG TAB PO SCH (08:09)
[2021-06-06] MEDS: FLUoxetine HCL 20 MG/5 ML 120ML BTL PO SCH (08:10)
[2021-06-06] MEDS: MONTELUKAST SODIUM 10 MG TABLET PO SCH (08:10)
[2021-06-06] MEDS: ENOXAPARIN INJ 40 MG/0.4 ML SYR SQ SCH ×2 (08:10→08:50)
[2021-06-06] MEDS: cloNIDine HCL 0.1 MG TAB PO SCH (08:11)
[2021-06-06] MEDS: OLANZapine 10 MG TAB PO SCH (08:12)
[2021-06-06] MEDS: dexAMETHasone 6 MG in SYRINGE 0 ML IV SCH ×2 (08:12→12:13)
[2021-06-06] MEDS: LORazepam 0.5 MG TAB PO PRN (08:27)
[2021-06-06] MEDS: 4mg Daily x 14 days (eGFR >60 mL/min/1.73m2) PO SCH (09:19)
[2021-06-06] MEDS ORDERED: ALBUTEROL 0.5% NEB SOLN 2.5 MG/0.5 ML VIAL NEB PRN (09:30)
[2021-06-06 11:35] LABS: Basophils # (auto) 0.05 K/uL (0-0.2); Basophils % (auto) 0.6 %; Eosinophils # (auto) 0.04 K/uL (0-0.5); Eosinophils % (auto) 0.5 %; Hematocrit (blood only) 42.7 % (37-47); Hemoglobin 13.9 g/dL (12.0-16.0); Immature Granulocytes # (auto) 0.33 K/uL (0.00-0.02); Immature Granulocytes % (auto) 3.8 %; Lymphocytes # (auto) 3.13 K/uL (1.2-3.4); Lymphocytes % (auto) 35.8 %; Mean Corpuscular Hemoglobin 31.5 pg (25-34); Mean Corpuscular Hgb Conc 32.6 g/dL (32-36); Mean Corpuscular Volume 96.8 fL (80-100); Mean Platelet Volume 9.5 fL (7.4-10.4); Monocytes # (auto) 1.69 K/uL (0.11-0.59); Monocytes % (auto) 19.3 %; Platelet Count 332 K/uL (130-400); RDW Coefficient of Variation 12.8 % (11.5-14.5); RDW Standard Deviation 45.1 fL (36.4-46.3); Red Blood Count 4.41 M/uL (4.2-5.4); White Blood Count 8.74 K/uL (4.8-10.8)
[2021-06-06 11:54] LABS: BUN Creatinine Ratio 18.7 (10-20); Blood Urea Nitrogen 13 mg/dl (7-18); Carbon Dioxide 31 mmol/L (21-32); Chloride 106 mmol/L (98-107); Est GFR (African American) 127.9 ml/min; Est GFR (Non-African American) 110.4 ml/min; Glucose 86 mg/dl (70-99); Magnesium 2.1 mg/dl (1.8-2.4); Potassium 3.5 mmol/L (3.5-5.1); Sodium 142 mmol/L (136-145)
[2021-06-06] MEDS: PANTOprazole 40 MG in SYRINGE 0 ML IV SCH (12:13)
[2021-06-06] MEDS ORDERED: dexAMETHasone 1 MG TAB PO ONE (12:30)
[2021-06-06] MEDS ORDERED: PANTOprazole 40 MG TAB PO ONE (12:30)
[2021-06-06] MEDS ORDERED: RIVAROXABAN 10 MG TABLET PO ONE (12:30)
--- NOTE | 2021-06-06 14:03 | Discharge Summary ---
Date of Service June 06, 2021 Admission HPI Per Admitting Provider 36 YOF with past medical history of: Mental retardation acquired after , communicates with one word descriptions and sign language, complex partial seizure . She is accompanied with her dad and her sister. Sister had COVID this past spring and is her caregiver and able to provide most of her care and interactions. Dad and Mom are also sick. Patient is not vaccinated and is on ~ day 1-2 of Ivermectin that was started at home. The patient comes in today with day of illness at approx day #6. Patient sister thinks she started being more fatigued on Sunday where she was also weaker to where she tried to get up and fell. This progressed to not wanting to eat or drink and becoming more agitated, today she checked her HR and pulse oximetry at home with SPO2 reported in the 60s and HR 120s. In the EMD she was noted to be hypoxic to 85% on room air. She had routine labs drawn, was given 6mg of Decadron IV- will give 4mg IV x1 for total of 10mg now, and chest Xray. Her CXR is compatible with COVID 19 and possibly some pulmonary edema. Patient has weak cough and does not expectorate her secretions. She is also noted to have her last seizure in 2018- per review this happened when she was over-excited at [facility]. Patient has a high mortality as she is unable to effectively cough and likely self prone or rotate, her sister will stay with her and provide the 1:1 assistance that she needs. If her Oxygen saturations were to continue to decline on HFNC then will likely need to move to intubation. Will keep on Decadron 10mg IV daily for now, CRP, Fibrinogen, LDH, PCT pending. Discussed treatment options to include steriods, self rotation therapy, oxygen titration and remdisivir. Patient family declines remdisivir. Had discussion with patient's dad who is in the bed next to her, her sister, and mother regarding severity of illness and if fails HFNC will likely need to move straight to intubation with high likely tompkins of not being able to extubate. They understand the situation and want to support her as we can and "do the best we can." As above sister will provide 1:1 care and understands that she can not leave and come back and forth. Discussed with Milk Deliverer. Principal Diagnosis COVID 19 pneumonia Acute hypoxic respiratory failure Discharge Exam General: well developed, obese female, developmentally delayed, no distress, very pleasant Neck: supple, trachea midline, normal thyroid Lungs: clear to auscultation bilaterally, normal respiratory effort, no accessory muscle use, no distress, + cough Heart: regular S1 and S2, no murmur, peripheral pulses normal, capillary refill normal, no edema Abdomen: soft, NT, ND, + BS, no hepatomegaly, normal to percussion Extremities: normal in appearance, no cyanosis, no petechiae, strength is 5/5 bilaterally Neuro: awake, moves all extremities, no focal motor deficits, CN II-XII intact Skin: warm, dry, no rash, normal turgor Psych: Awake, oriented to person, limited verbal responses Discharge Data Allergies Allergy/AdvReac Type Severity Reaction Status Date / Time carbamazepine Allergy Unknown unknown Verified 06/02/21 15:16 amoxicillin AdvReac Intermediate vomiting Verified 06/02/21 15:16 clavulanic acid AdvReac Intermediate vomiting Verified 06/02/21 15:16 lacosamide AdvReac Intermediate nausea Verified 06/02/21 15:16 Consultations 06/02/21 16:16 ED Decision to Admit Stat Hospital Course (1) COVID: COVID 19 pneumonia - down to room air for over two days, no distress at all, safe to go home - continue dexamethasone 6mg daily for 5 more days to complete 10 days of treatmet treated with baricitinib while here, no need to continue - DVT - Lovenox 40mg SQ q12, would recommend Xarelto 10mg daily on discharge for 30 days as she is not very mobile - PCT <0.5 negative CRP is < 1 day prior to discharge eating and drinking very well according to her sister/career information specialist family can provide care for her at home (2) Hypoxia: Hypoxia with respiratory failure secondary to COVID 19 - was on HFNC with 30 L flow and FIO2 50%- Spo2 92-94% quickly titrated down to low flow nasal canula and then down to room air for over 2 days, no distress, minimal cough continue dexamethasone for 5 more days at home (3) Severe intellectual disabilities: Acquired after - communicates with sign language and one word - stop restraints as nasal canula removed sister in the room as caregiver which helps a lot (4) Urinary incontinence without sensory awareness: Voids in adult diapers (5) Complex partial seizure: Continue Lamotrigine and Keppra - If patient has breakthrough seizure- increase Keppra with 2GM load (6) Depression with anxiety: Continue fexofenadine Continue Olanzapine - Ativan for anxiety- IV if not taking PO - Doing well this morning- required no PRN Ativan overnight (7) Hypovolemia: resolved, stop fluids, she is making more urine, drinking better past three days Total Time Total Time Spent Total Time Spent (In Minutes): 34 minutes Discharge Plan Discharge Items Patient Disposition: Home - Self-Care Reason For Visit: COVID Discharge Diagnosis: COVID 19 pneumonia Acute hypoxic respiratory failure Condition on Discharge: Good Goals: complete course of dexamethasone stay on Xarelto for a month for blood clot prevention stay well nourished, well hydrated Activity: Resume your previous activity Weightbearing: Full weightbearing Non-emergency contact: Primary Care Provider Call non-emergency contact if: you have any medication questions and your symptoms worsen Follow-up/Referrals: Martha Branham MD [Primary Care Provider] - (PLEASE CALL YOU PRIMARY CARE PROVIDER TO SCHEDULE A DISCHARGE FOLLOW-UP APPOINTMENT WITHIN 7-10 DAYS.) Diet: Regular Addtl Attending Provider Instructions: Medications: - DEXAMETHASONE: 6mg daily for 5 more days, take tomorrow morning, this completes treatment for COVID - XARELTO: 10mg daily to reduce risk of blood clots with COVID COVID 19 pneumonia, acute hypoxic respiratory failure, hypovolemia breathing well on room air, no distress eating and drinking well, no fever responded well to dexamethasone and baricitinib complete course of dexamethasone as described above take Xarelto for a month to reduce risk of clots associated with COVID Pending Studies at Discharge: No Stand-Alone Forms: My [employer], Smoking Cessation Medications and DC Order Prescriptions: New Xarelto 10 mg Tablet 10 mg PO DAILY 30 Days Qty: 30 RF: 0 Continued olanzapine 20 mg tablet 20 mg PO QPM Qty: 90 RF: 0 clonidine HCl 0.1 mg tablet 0.05 mg PO BID Qty: 90 RF: 1 (DME) Briefs, Adult-Extra Large Misc See Dose Instructions .ROUTE .MEDSUPPLY Qty: 162 RF: 12 levetiracetam 1,000 mg tablet 1,000 mg PO BID 30 Days Qty: 60 RF: 5 omeprazole 40 mg capsule,delayed release(DR/EC) 40 mg PO BID Qty: 180 RF: 1 lorazepam 1 mg tablet 0.5 mg PO QID PRN (Reason: Anxiety) 30 Days Qty: 60 RF: 1 fluoxetine 20 mg/5 mL (4 mg/mL) solution 40 mg PO DAILY RF: 0 lactulose 10 gram/15 mL solution 20 gm PO BID PRN (Reason: Constipation) Qty: 1892 RF: 0 naltrexone 50 mg tablet 100 mg PO QAM RF: 0 ondansetron 4 mg tablet,disintegrating 4 mg PO Q6H PRN (Reason: nausea and vomiting) Qty: 20 RF: 0 triamcinolone acetonide 0.1 % cream 1 appln topical BID PRN (Reason: rash) Qty: 1 RF: 0 fluticasone propionate 50 mcg/actuation [place],Suspension 2 spray INTRANASAL DAILY PRN (Reason: Congestion) RF: 0 lamotrigine 200 mg tablet 400 mg PO BID RF: 0 levetiracetam 500 mg tablet 500 mg PO BID RF: 0 olanzapine 10 mg tablet 10 mg PO QAM RF: 0 lamotrigine 25 mg tablet 25 mg PO QPM RF: 0 montelukast 10 mg tablet 10 mg PO QAM RF: 0 Discharge Orders: Discharge Order (Routine); Ordered 06/06/21 Ordered By: Senthil Gu Admission Data Admit Date/Time: 06/02/21 18:24 Attending Provider: Senthil uG Admit Provider: Jose F Berry Primary Care Provider: Martha Branham Other Providers: Jose F Berry Other Interventions: Discharge Summary Assessment (RN) Last Done: 06/06/21 15:05 Coding Level of Care Code D/C DAY MANAGEMENT >30 MINS Diagnoses COVID U07.1 Hypoxia R09.02 Severe intellectual disabilities F72 Urinary incontinence without sensory awareness N39.42 Complex partial seizure G40.209 Depression with anxiety F41.8 Hypovolemia E86.1
[2021-06-07] MEDS ORDERED: RIVAROXABAN 10 MG TABLET PO SCH (09:00)
[2021-06-07] MEDS ORDERED: PANTOprazole 40 MG TAB PO SCH (09:00)
[2021-06-07] MEDS ORDERED: dexAMETHasone 4 MG TAB PO SCH (09:00)
== END 2021-06-06 17:35 | disposition home or self-care (01) | DRG 177 ==
LOC: ED 14:27 → SUATTDRO 18:24 → EDINP 18:24 → 2S 06-03 18:30 → 2N 06-04 05:53

== ENCOUNTER 2024-07-01 15:29 | Inpatient (IN) ==
--- NOTE | 2024-07-01 16:48 | XRay Report ---
EXAM: Radiograph of the Chest 1 View INDICATION: Dyspnea. TECHNIQUE: Frontal view of the chest. COMPARISON: No relevant prior studies available. FINDINGS: Lungs and pleural spaces: There is diffuse engorgement of the pulmonary vasculature. There is overlying airspace consolidation in both lungs left greater than right relatively sparing the apices and right base. Probable small left pleural effusion. No pneumothorax. Heart: Shape and configuration within normal limits allowing for technique. Mediastinum: Normal contour. Bones/joints: Scoliotic spine. No acute osseous abnormality. Soft tissues: No abnormality noted. No radiopaque foreign body noted. Upper abdomen: No abnormality noted. IMPRESSION: Bilateral pulmonary abnormalities most concerning for CHF or pneumonia. ACT 112: Negative or not required by law. Electronically signed by Anushka Castro 07-01-2024 4:48 PM
[2024-07-01 17:32] LABS: Adenovirus PCR Not Detected (NotDetected); Bordetella parapertussis PCR Not Detected (NotDetected); Bordetella pertussis PCR Not Detected (NotDetected); Chlamydia pneumoniae PCR Not Detected (NotDetected); Coronavirus 229E PCR Not Detected (NotDetected); Coronavirus CoV-2 (COVID19)PCR Not Detected (NotDetected); Coronavirus HKU1 PCR Not Detected (NotDetected); Coronavirus NL63 PCR Not Detected (NotDetected); Coronavirus OC43PCR Not Detected (NotDetected); Human Metapneumovirus PCR Not Detected (NotDetected); Influenza A (H3) PCR DETECTED (NotDetected); Influenza B PCR Not Detected (NotDetected); Mycoplasma pneumoniae PCR Not Detected (NotDetected); Parainfluenza Virus 1 PCR Not Detected (NotDetected); Parainfluenza Virus 2 PCR Not Detected (NotDetected); Parainfluenza Virus 3 PCR Not Detected (NotDetected); Parainfluenza Virus 4 PCR Not Detected (NotDetected); Respiratory Syncytial VirusPCR Not Detected (NotDetected); Rhinovirus/Enterovirus PCR Not Detected (NotDetected)
[2024-07-01 17:36] LABS: Hematocrit (blood only) 40.3 % (37.0-47.0); Hemoglobin 13.1 g/dl (12.0-16.0); Mean Corpuscular Hemoglobin 30.2 pg (25.0-34.0); Mean Corpuscular Hgb Conc 32.5 g/dL (32.0-36.0); Mean Corpuscular Volume 92.9 fL (80.0-100.0); Mean Platelet Volume 10.1 fL (9.4-12.4); Nucleated RBC # (auto) 0.05 K/uL (0.00-0.12); Nucleated RBC % (auto) 0.6 %; Platelet Count 258 K/uL (130-400); RDW Coefficient of Variation 12.2 % (11.5-14.5); RDW Standard Deviation 41.9 fL (36.4-46.3); Red Blood Count 4.34 M/uL (4.20-5.40); White Blood Count 8.97 K/ul (4.8-10.8)
[2024-07-01 18:01] LABS: Troponin I High Sensitivity 4.6 pg/ml (0-14)
[2024-07-01 18:07] LABS: Basophils # (auto) 0.05 K/uL (0.00-0.20); Basophils % (auto) 0.6 %; Eosinophils # (auto) 0.01 K/uL (0.00-0.50); Eosinophils % (auto) 0.1 %; Immature Granulocytes # (auto) 0.18 K/uL (0.01-0.20); Lymphocytes # (auto) 1.55 K/uL (1.20-3.40); Lymphocytes % (auto) 17.3 %; Monocytes # (auto) 0.96 K/uL (0.11-0.59); Monocytes % (auto) 10.7 %; Neutrophils # (auto) 6.22 K/uL (1.40-6.50); Neutrophils % (auto) 69.3 %; Partial Thromboplastin Ratio 1.1; Partial Thromboplastin Time 29 Seconds (21-31); Polychromasia 1+; Prothrombin Time 10.7 Seconds (9.0-12.0)
--- NOTE | 2024-07-01 18:11 | CT Scan Report ---
EXAM: CT Chest Without Intravenous Contrast INDICATION: Possible aspiration. Pulmonary infiltrates. TECHNIQUE: Axial computed tomography images of the chest without intravenous contrast. Sagittal and coronal reformatted images were created and reviewed. This CT exam was performed using one or more of the following dose reduction techniques: automated exposure control, adjustment of the mA and/or kV according to patient size, and/or use of iterative reconstruction technique. COMPARISON: Chest x-ray the same day. FINDINGS: Limitations: None. Lungs and pleural spaces: There are multifocal infiltrates most notable in the right upper lobe. Infiltrate in the left posterior costophrenic sulcus is more confluent measuring approximately 1.9 x 1.5 x 3.5 cm. There is an 8 mm nodule in the right lateral costophrenic sulcus. No pleural effusion or pneumothorax. Heart: No abnormality noted. Thyroid: No abnormality noted. Bones/joints: No acute changes. Soft tissues: No significant abnormality noted. Vasculature: No aneurysm. Lymph nodes: Prominent lateral aortic and paratracheal nodes present. No pathologically enlarged nodes. IMPRESSION: Multifocal infiltrates most concerning for pneumonia. Appearance is nonspecific and could be on the basis of aspiration. No pleural effusion is identified. Follow-up until resolution recommended to exclude underlying mass. ACT 112: Negative or not required by law. Electronically signed by Anushka Castro 07-01-2024 6:11 PM
[2024-07-01 18:26] LABS: Albumin Level 3.3 gm/dl (3.4-5.0); Bilirubin,Total 0.3 mg/dl (0.2-1.0); Calcium 8.7 mg/dl (8.6-10.3); Potassium 3.4 mmol/L (3.5-5.1)
[2024-07-01 18:32] LABS: Albumin Globulin Ratio 0.9 (0.9-2); BUN Creatinine Ratio 8.9 (10-20); Creatinine Clr Calc Pharmacy 144.3 ml/min; Globulin 3.8 gm/dl (2.5-4.0); Total Protein 7.1 gm/dl (6.0-8.3)
[2024-07-01] MEDS: CEFEPIME 2000MG 2,000 MG/20 ML SYR IV STA (18:56)
[2024-07-01] MEDS: metroNIDAZOLE 500 MG/100 ML BAG IV STA (18:56)
--- NOTE | 2024-07-01 19:29 | History & Physical Report ---
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 She underwent evaluation in the emergency department which included test positive for influenza A H3 virus, chest x-ray suggestive of bilateral pneumonia, likely associated with aspiration from episodes of nausea and vomiting. Mother reports that nausea and vomiting initially began 4 to 5 days ago, and had stopped about 2 days ago, but she then started mildly more progressive issues with shortness of breath #Acute respiratory failure with hypoxia/influenza A H3 viral infection/aspiration pneumonia- Nasal cannula oxygen, titrate to keep pulse ox 92-94% #Influenza A H3 viral infection- Give Solu-Medrol 60 mg IV now, and then 40 mg IV every 12 hours Tamiflu 75 mg p.o. twice daily DuoNebs every 2 hours as needed Droplet precautions #Aspiration pneumonia- Likely secondary to episodes of nausea and vomiting that began about 5 days ago and completed about 2 days ago. MRSA swab Continue cefepime 2 g IV every 12 hours, and Flagyl 5 mg IV every 8 hours begun in the ED Add vancomycin IV if MRSA positive DuoNebs every 2 hours as needed #Severe intellectual disabilities/personality behavioral disorders/depression with anxiety/seizure disorder- Patient doing reasonably well this point Continue usual medications of fluoxetine, lamotrigine, Keppra, lorazepam, olanzapine and baclofen History of Present Illness Chief Complaint: The patient was seen at [facility] earlier in the day due to noted shortness of breath by her mother, and was advised to come to the ED for further assessment. 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 She underwent evaluation in the emergency department which included test positive for influenza A H3 virus, chest x-ray suggestive of bilateral pneumonia, likely associated with aspiration from episodes of nausea and vomiting. Mother reports that nausea and vomiting initially began 4 to 5 days ago, and had stopped about 2 days ago, but she then started mildly more progressive issues with shortness of breath. Allergies Allergy/AdvReac Type Severity Reaction Status Date / Time carbamazepine Allergy Unknown unknown Verified 07/01/24 19:38 amoxicillin AdvReac Intermediate vomiting Verified 07/01/24 19:38 clavulanic acid AdvReac Intermediate vomiting Verified 07/01/24 19:38 lacosamide AdvReac Intermediate nausea Verified 07/01/24 19:38 Home Medications Medication Instructions Recorded Confirmed Type triamcinolone acetonide 0.1 % 1 appln topical BID PRN rash #1 g 06/23/19 History topical cream diclofenac sodium 1 % topical gel 2 g topical QID #100 grams 08/25/21 07/01/24 Rx clotrimazole 1 % topical cream 1 applic topical BID 4 weeks #30 11/03/21 07/01/24 Rx grams diaper,brief,adult,disposable #162 ea 02/14/22 03/13/24 Rx (Briefs, Adult-Extra Large) lorazepam 1 mg tablet 0.5 mg (1/2 x 1 mg) PO QID PRN 03/27/22 07/01/24 Rx Anxiety 30 days #30 tabs clonidine HCl 0.1 mg tablet 0.05 mg (1/2 x 0.1 mg) PO BID #90 04/23/23 07/01/24 Rx tabs olanzapine 10 mg tablet 10 mg PO QAM #90 tabs 05/10/23 07/01/24 Rx olanzapine 20 mg tablet 20 mg PO QPM #90 tabs 05/10/23 07/01/24 Rx ondansetron 8 mg disintegrating 8 mg PO Q6H PRN nausea and 07/13/23 07/01/24 Rx tablet vomiting #30 tabs naltrexone 50 mg tablet 100 mg (2 x 50 mg) PO QAM 90 days 08/13/23 07/01/24 Rx #180 tabs lactulose 10 gram/15 mL oral 20 g (30 mL) PO BID PRN 10/25/23 07/01/24 Rx solution Constipation #5,676 mL miscellaneous medical supply #1 ea 11/03/23 03/13/24 Rx Wheeled Walker #1 ea 12/14/23 03/13/24 Rx levetiracetam 1,000 mg tablet 1,000 mg PO BID 90 days #180 tabs 08/15/24 12/31/24 Rx levetiracetam 500 mg tablet 500 mg PO HS 90 days #90 tabs 02/14/24 07/01/24 Rx fluticasone propionate 50 2 spray intranasal DAILY PRN 03/13/24 07/01/24 Rx mcg/actuation nasal Congestion #16 grams spray,suspension famotidine 40 mg tablet 40 mg PO PM #90 tabs 05/05/24 07/01/24 Rx omeprazole 40 mg capsule,delayed 40 mg PO BID #180 caps 05/05/24 07/01/24 Rx release lamotrigine 200 mg tablet 400 mg (2 x 200 mg) PO BID #360 05/06/24 07/01/24 Rx tabs fluoxetine 20 mg/5 mL (4 mg/mL) 40 mg (10 mL) PO DAILY 30 days 06/02/24 07/01/24 Rx oral solution #300 mL Wheelchair (Manual) #1 ea 06/11/24 Rx baclofen 10 mg tablet 10 mg PO BID 07/01/24 07/01/24 History montelukast 10 mg tablet 10 mg PO QAM 07/01/24 07/01/24 History Past Med/Surg History Problem List (Updated 07/02/24 @ 03:58 by Zafar White MD) Aspiration pneumonia Influenza A H1N1 infection Mass of right breast Other personality and behavioral disorders due to known physiological condition Lumbar back pain Chronic reflux esophagitis (Acute) Severe intellectual disabilities (Acute) Urinary incontinence without sensory awareness (Acute) Complex partial seizure (Chronic) Depression with anxiety (Chronic) Dyslipidemia (Chronic) Medical History Pneumonia due to 2019-nCoV Calculus of kidney Surgical History History of dental surgery History of facial surgery Family History Other Adopted Social History Smoking Status: Never smoker Second Hand Exposure: No; Do You Dip or Chew Tobacco: No; Hx Alcohol Use: No Hx Substance Use: No Communication Ability: Unable Visual Impairment: No Limitations Hearing Ability: Normal marital status: Single Current Living Situation: Family current occupational status: disabled How many Children do You have: 0 Feels Safe at Home: Yes Childhood Exposure to Second-Hand Smoke: No Diet: regular Dental Care, Regularly: Yes Physical Activity Frequency: Daily Seatbelt Use: always Sunscreen Use: Yes Assistive Devices: Wheelchair Review of Systems Review of Systems: The patient herself not able to contribute significantly to HPI or review of systems due to ongoing medical conditions. Her mother, was with her, supplies the information as noted. Physical Exam Physical Exam: The patient is awake, alert, chronic developmental issues as noted, normocephalic and atraumatic, lying in bed and in no acute distress. HEENT--PERRL, EOMI, mucous membranes and oropharynx dry. Neck--supple. No JVD. No bruits. Thyroid normal, trachea midline, no adenopathy. Heart--normal S1 and S2. No murmurs, rubs or gallops. Lungs--coarse breath sounds with wheezes bilaterally right greater than left. no respiratory distress, no accessory muscle use. Abdomen--normal bowel sounds and soft. Nontender. Nondistended, no hernias or masses, no organomegaly. Extremities--no cyanosis or clubbing. No edema. Dermatologic--normal skin turgor, normal color, no abnormal lymph nodes, no rash. Neurologic--cranial nerves II through XII grossly intact. Rheumatologic--normal range of motion. Psychiatric--normal affect. Results & Data Results & Data Vital Signs (Past 12 Hours) Vital Signs Temp Pulse Pulse Resp BP BP Pulse Ox 07/01/24 17:15 100 H 21 122/80 93 07/01/24 17:14 99 H 07/01/24 16:25 95 H 28 H 95 07/01/24 15:26 108 H 28 H 121/77 88 L 07/01/24 15:26 07/01/24 15:26 07/01/24 15:26 37 C 108 H 28 H 121/77 88 L O2 Del Method O2 Flow Rate 07/01/24 17:15 Nasal Cannula 2 07/01/24 17:14 07/01/24 16:25 Nasal Cannula 2 07/01/24 15:26 Room Air 07/01/24 15:26 Room Air 07/01/24 15:26 Room Air 07/01/24 15:26 Room Air Laboratory Results Laboratory Results WBC 8.97 K/ul (4.8-10.8) 07/01/24 17:09 RBC 4.34 M/uL (4.20-5.40) 07/01/24 17:09 Hgb 13.1 g/dl (12.0-16.0) 07/01/24 17:09 Hct 40.3 % (37.0-47.0) 07/01/24 17:09 MCV 92.9 fL (80.0-100.0) 07/01/24 17:09 MCH 30.2 pg (25.0-34.0) 07/01/24 17:09 MCHC 32.5 g/dL (32.0-36.0) 07/01/24 17:09 RDW Std Deviation 41.9 fL (36.4-46.3) 07/01/24 17:09 RDW Coeff of Pawel 12.2 % (11.5-14.5) 07/01/24 17:09 Plt Count 258 K/uL (130-400) 07/01/24 17:09 MPV 10.1 fL (9.4-12.4) 07/01/24 17:09 Immature Gran % (Auto) 2.0 % 07/01/24 17:09 Neut % (Auto) 69.3 % 07/01/24 17:09 Lymph % (Auto) 17.3 % 07/01/24 17:09 [place] % (Auto) 10.7 % 07/01/24 17:09 Eos % (Auto) 0.1 % 07/01/24 17:09 Baso % (Auto) 0.6 % 07/01/24 17:09 Neut # (Auto) 6.22 K/uL (1.40-6.50) 07/01/24 17:09 Lymph # (Auto) 1.55 K/uL (1.20-3.40) 07/01/24 17:09 [place] # (Auto) 0.96 K/uL (0.11-0.59) H 07/01/24 17:09 Eos # (Auto) 0.01 K/uL (0.00-0.50) 07/01/24 17:09 Baso # (Auto) 0.05 K/uL (0.00-0.20) 07/01/24 17:09 Immature Gran # (Auto) 0.18 K/uL (0.01-0.20) 07/01/24 17:09 Absolute Nucleated RBC 0.05 K/uL (0.00-0.12) 07/01/24 17:09 Nucleated RBC % (auto) 0.6 % 07/01/24 17:09 Polychromasia 1+ 07/01/24 17:09 PT 10.7 Seconds (9.0-12.0) 07/01/24 17:09 INR 1.0 (0.9-1.1) 07/01/24 17:09 APTT 29 Seconds (21-31) 07/01/24 17:09 PTT Ratio 1.1 07/01/24 17:09 Sodium 143 mmol/L (136-145) 07/01/24 17:09 Potassium 3.4 mmol/L (3.5-5.1) L 07/01/24 17:09 Chloride 100 mmol/L (98-107) 07/01/24 17:09 Carbon Dioxide 31 mmol/L (21-32) 07/01/24 17:09 Anion Gap 12 (3-11) H 07/01/24 17:09 BUN 5 mg/dl (6-23) L 07/01/24 17:09 Creatinine 0.56 mg/dl (0.6-1.2) L 07/01/24 17:09 Est Cr Clr Drug Dosing 144.3 ml/min 07/01/24 17:09 eGFR 119.73 07/01/24 17:09 BUN/Creatinine Ratio 8.9 (10-20) L 07/01/24 17:09 Glucose 92 mg/dl (70-99(Fasting)) 07/01/24 17:09 Lactate 1.2 mmol/L (0.4-2.0) 07/01/24 18:28 Calcium 8.7 mg/dl (8.6-10.3) 07/01/24 17:09 Magnesium 2.0 mg/dl (1.7-2.4) 07/01/24 17:09 Total Bilirubin 0.3 mg/dl (0.2-1.0) 07/01/24 17:09 AST 22 U/L (13-39) 07/01/24 17:09 ALT 19 U/L (7-52) 07/01/24 17:09 Alkaline Phosphatase 111 U/L (34-104) H 07/01/24 17:09 Troponin I High Sens 4.6 pg/ml (0-14) 07/01/24 17:09 Total Protein 7.1 gm/dl (6.0-8.3) 07/01/24 17:09 Albumin 3.3 gm/dl (3.4-5.0) L 07/01/24 17:09 Globulin 3.8 gm/dl (2.5-4.0) 07/01/24 17:09 Albumin/Globulin Ratio 0.9 (0.9-2) 07/01/24 17:09 Procalcitonin 0.18 ng/ml (0-0.5) 07/01/24 17:09 Nasal Screen MRSA (PCR) Negative (Negative) 07/01/24 19:45 Adenovirus (PCR) Not Detected (NotDetected) 07/01/24 Unknown B. pertussis DNA (PCR) Not Detected (NotDetected) 07/01/24 Unknown B.parapertussis DNA PCR Not Detected (NotDetected) 07/01/24 Unknown C. pneumoniae DNA (PCR) Not Detected (NotDetected) 07/01/24 Unknown Coronavirus OC43 (PCR) Not Detected (NotDetected) 07/01/24 Unknown Coronavirus HKU1 (PCR) Not Detected (NotDetected) 07/01/24 Unknown Coronavirus 229E (PCR) Not Detected (NotDetected) 07/01/24 Unknown SARS-CoV-2 (PCR) Not Detected (NotDetected) 07/01/24 Unknown Coronavirus NL63 (PCR) Not Detected (NotDetected) 07/01/24 Unknown Human Metapneumovir PCR Not Detected (NotDetected) 07/01/24 Unknown Influenza A (H3) PCR DETECTED (NotDetected) A 07/01/24 Unknown Influenza Type B (PCR) Not Detected (NotDetected) 07/01/24 Unknown M. pneumoniae (PCR) Not Detected (NotDetected) 07/01/24 Unknown Parainfluenza 1 (PCR) Not Detected (NotDetected) 07/01/24 Unknown Parainfluenza 2 (PCR) Not Detected (NotDetected) 07/01/24 Unknown Parainfluenza 3 (PCR) Not Detected (NotDetected) 07/01/24 Unknown Parainfluenza 4 (PCR) Not Detected (NotDetected) 07/01/24 Unknown RSV (PCR) Not Detected (NotDetected) 07/01/24 Unknown Entero/Rhino (PCR) Not Detected (NotDetected) 07/01/24 Unknown Impressions Chest X-Ray 07/01/24 16:25 EXAM: Radiograph of the Chest 1 View INDICATION: Dyspnea. TECHNIQUE: Frontal view of the chest. COMPARISON: No relevant prior studies available. FINDINGS: Lungs and pleural spaces: There is diffuse engorgement of the pulmonary vasculature. There is overlying airspace consolidation in both lungs left greater than right relatively sparing the apices and right base. Probable small left pleural effusion. No pneumothorax. Heart: Shape and configuration within normal limits allowing for technique. Mediastinum: Normal contour. Bones/joints: Scoliotic spine. No acute osseous abnormality. Soft tissues: No abnormality noted. No radiopaque foreign body noted. Upper abdomen: No abnormality noted. IMPRESSION: Bilateral pulmonary abnormalities most concerning for CHF or pneumonia. ACT 112: Negative or not required by law. Electronically signed by Anushka Castro 07-01-2024 4:[address] 07/01/24 16:49 EXAM: CT Chest Without Intravenous Contrast INDICATION: Possible aspiration. Pulmonary infiltrates. TECHNIQUE: Axial computed tomography images of the chest without intravenous contrast. Sagittal and coronal reformatted images were created and reviewed. This CT exam was performed using one or more of the following dose reduction techniques: automated exposure control, adjustment of the mA and/or kV according to patient size, and/or use of iterative reconstruction technique. COMPARISON: Chest x-ray the same day. FINDINGS: Limitations: None. Lungs and pleural spaces: There are multifocal infiltrates most notable in the right upper lobe. Infiltrate in the left posterior costophrenic sulcus is more confluent measuring approximately 1.9 x 1.5 x 3.5 cm. There is an 8 mm nodule in the right lateral costophrenic sulcus. No pleural effusion or pneumothorax. Heart: No abnormality noted. Thyroid: No abnormality noted. Bones/joints: No acute changes. Soft tissues: No significant abnormality noted. Vasculature: No aneurysm. Lymph nodes: Prominent lateral aortic and paratracheal nodes present. No pathologically enlarged nodes. IMPRESSION: Multifocal infiltrates most concerning for pneumonia. Appearance is nonspecific and could be on the basis of aspiration. No pleural effusion is identified. Follow-up until resolution recommended to exclude underlying mass. ACT 112: Negative or not required by law. Electronically signed by Anushka Castro 07-01-2024 6:11 PM Code Status & VTE Plan Code Status Full code VTE Prophylaxis Plan VTE Prophylaxis will be ordered: Yes PG Care Time/CCT Total # of Minutes Spent Total Time Spent with Patient: Total time spent is greater than 50% in coordination of care (as documented) at patient's floor/unit and/or counseling patient: Coding Level of Care Code 55607 INT INP/OBS CARE 3/75MIN Diagnoses Influenza A H1N1 infection J10.1 Aspiration pneumonia J69.0 Severe intellectual disabilities F72 Complex partial seizure G40.209
[2024-07-01] MEDS ORDERED: ONDANSETRON INJ 2 MG/ML 2 ML VIAL IV PRN (20:45)
[2024-07-01] MEDS ORDERED: ALBUT/IPRATROP 3MG/0.5MG NEB 3 ML VIAL NEB PRN (20:45)
[2024-07-01] MEDS ORDERED: ACETAMINOPHEN 325 MG TAB PO PRN (20:45)
[2024-07-01] MEDS: OSELTAMIVIR PHOSPHATE 75 MG CAP PO STA (20:56)
[2024-07-01] MEDS: NSS + 20MEQ KCL 20 MEQ/1,000 ML BAG IV SCH (20:56)
[2024-07-01] MEDS: methylPREDNISolone 125 MG/2 ML VIAL IV STA (20:57)
[2024-07-01] MEDS ORDERED: methylPREDNISolone 10 mg/mL (For Ped Dose < 7mg) IV SCH (21:00)
[2024-07-01] MEDS: BACLOFEN 10 MG TAB PO SCH (22:23)
[2024-07-01] MEDS: cloNIDine HCL 0.1 MG TAB PO SCH (22:23)
[2024-07-01] MEDS: OLANZapine 20 MG TABLET PO SCH (22:24)
[2024-07-01] MEDS: lamoTRIgine 25 MG TAB PO SCH (22:24)
[2024-07-01] MEDS: lamoTRIgine 100 MG TAB PO SCH (22:25)
[2024-07-01] MEDS: HEPARIN SOD 5,000 UNIT/0.5 ML VIAL SQ SCH (22:25)
[2024-07-01] MEDS: levETIRAcetam ORAL SOLN 100MG/ML PO SCH (22:35)
[2024-07-01] MEDS: levETIRAcetam 500 MG TAB PO SCH ×2 (22:49)
[2024-07-02] MEDS: CEFEPIME 2000MG 2,000 MG/20 ML SYR IV SCH (02:03)
[2024-07-02] MEDS: metroNIDAZOLE 500 MG/100 ML BAG IV SCH (04:25)
[2024-07-02 06:16] LABS: Hematocrit (blood only) 39.2 % (37.0-47.0); Hemoglobin 12.9 g/dl (12.0-16.0); Mean Corpuscular Hemoglobin 30.6 pg (25.0-34.0); Mean Corpuscular Hgb Conc 32.9 g/dL (32.0-36.0); Mean Corpuscular Volume 93.1 fL (80.0-100.0); Nucleated RBC # (auto) 0.02 K/uL (0.00-0.12); Nucleated RBC % (auto) 0.2 %; Platelet Count 232 K/uL (130-400); RDW Coefficient of Variation 12.3 % (11.5-14.5); RDW Standard Deviation 42.1 fL (36.4-46.3); Red Blood Count 4.21 M/uL (4.20-5.40); White Blood Count 9.79 K/ul (4.8-10.8)
[2024-07-02 06:35] LABS: BUN Creatinine Ratio 14.3 (10-20); Calcium 8.3 mg/dl (8.6-10.3); Creatinine Clr Calc Pharmacy 142.3 ml/min; Magnesium 2.1 mg/dl (1.7-2.4); Phosphorus 4.1 mg/dl (2.5-4.9)
[2024-07-02 06:42] LABS: Basophils # (auto) 0.02 K/uL (0.00-0.20); Basophils % (auto) 0.2 %; Immature Granulocytes # (auto) 0.15 K/uL (0.01-0.20); Immature Granulocytes % (auto) 1.5 %; Lymphocytes # (auto) 0.83 K/uL (1.20-3.40); Lymphocytes % (auto) 8.5 %; Monocytes # (auto) 0.22 K/uL (0.11-0.59); Monocytes % (auto) 2.2 %; Neutrophils # (auto) 8.57 K/uL (1.40-6.50); Neutrophils % (auto) 87.6 %
[2024-07-02] MEDS: OLANZapine 10 MG TAB PO SCH (08:04)
[2024-07-02] MEDS: NALTREXONE HCL 50 MG TAB PO SCH (08:04)
[2024-07-02] MEDS: FLUoxetine HCL 20 MG/5 ML 120ML BTL PO SCH (08:05)
[2024-07-02] MEDS: methylPREDNISolone 40 MG in SYRINGE 0 ML IV SCH (08:05)
[2024-07-02] MEDS: levETIRAcetam ORAL SOLN 100MG/ML PO SCH (08:05)
[2024-07-02] MEDS: MONTELUKAST SODIUM 10 MG TABLET PO SCH (08:06)
[2024-07-02] MEDS ORDERED: OSELTAMIVIR PHOSPHATE 75 MG CAP PO SCH (09:00)
--- NOTE | 2024-07-02 09:04 | Hospitalist Progress Note ---
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 She underwent evaluation in the emergency department which included test positive for influenza A H3 virus, chest x-ray suggestive of bilateral pneumonia, likely associated with aspiration from episodes of nausea and vomiting. Mother reports that nausea and vomiting initially began 4 to 5 days ago, and had stopped about 2 days ago, but she then started mildly more progressive issues with shortness of breath #Influenza A H3 viral infection- - Give Solu-Medrol 60 mg IV now, and then 40 mg IV every 12 hours - Tamiflu 75 mg p.o. twice daily - DuoNebs every 2 hours as needed - Droplet precautions #Aspiration pneumonia- - Likely secondary to episodes of nausea and vomiting that began about 5 days ago and completed about 2 days ago. - MRSA swab - Continue cefepime 2 g IV every 12 hours, and Flagyl 5 mg IV every 8 hours begun in the ED - MRSA neg - DuoNebs every 2 hours as needed #Acute respiratory failure with hypoxia/influenza A H3 viral infection/aspiration pneumonia- - Nasal cannula oxygen, titrate to keep pulse ox 92-94% #Severe intellectual disabilities/personality behavioral disorders/depression with anxiety/seizure disorder- - Patient doing reasonably well this point - Continue usual medications of fluoxetine, lamotrigine, Keppra, lorazepam, olanzapine and baclofen 07/02: pt's mom at bedside Admission and Anticipated Discharge Date Admission Date: July 01, 2024 Subjective No acute events overnight Due to I.D. , pt not able to provide much complaints Review of Systems Review of Systems: Unable to obtain ROS due to I.D. Physical Exam Physical Exam: Gen: no acute distress, calm and in bed HEENT: NC/AT, MMM Lungs: coarse breath sounds CVS: s1s2 nl, RRR Abd: soft, NT, nl bowel sounds Ext: no edema Results & Data Results & Data Vital Signs (Past 12 Hours) Vital Signs Temp Pulse Pulse Resp BP Pulse Ox O2 Del Method 07/02/24 07:42 37.0 C 79 18 118/76 96 Nasal Cannula 07/02/24 02:47 37.3 C 88 20 135/80 99 Nasal Cannula 07/02/24 00:37 101 H 07/01/24 22:58 Nasal Cannula 07/01/24 22:00 37.2 C 101 H 24 133/82 94 Nasal Cannula O2 Flow Rate 07/02/24 07:42 5 07/02/24 02:47 5 07/02/24 00:37 07/01/24 22:58 5 07/01/24 22:00 5 PG Care Time/CCT Total # of Minutes Spent Total Time Spent with Patient: Total time spent is greater than 50% in coordination of care (as documented) at patient's floor/unit and/or counseling patient: Coding Level of Care Code 58857 SUB INP/OBS CARE 3/50MIN Diagnoses Influenza A H1N1 infection J10.1 Aspiration pneumonia J69.0 Severe intellectual disabilities F72 Complex partial seizure G40.209
[2024-07-02] MEDS: OSELTAMIVIR PHOSPHATE SUSP 75 MG/12.5 ML UDP PO SCH (10:39)
--- NOTE | 2024-07-02 11:24 | Emergency Department Note ---
Impression & Plan Aspiration pneumonia ED Provider Note CHIEF COMPLAINT: Shortness of breath HISTORY OF PRESENT ILLNESS: This 39-year-old female patient past medical history of severe intellectual disability, seizure disorder, anxiety, reflux presents to the emergency department with her mother who states that she has had some increased difficulty breathing over the last several days. She was taken to the urgent care as they were unable to get an appoint with the PCP. Patient was found to have oxygen saturations in the 80s, EMS was called and the patient was brought to the emergency department. Patient suffered a vomiting illness about a week ago. Mother states there was no diarrhea associated with it. She required spoon feeding and had difficulty holding her medicines down. Mother is concerned about her cough and rapid respiratory rate. These REVIEW OF SYSTEMS: A review of systems was performed with positives and pertinent negatives listed in the history of present illness. 10 systems were reviewed and are otherwise negative. ALLERGIES: see below MEDICATIONS: see below PMH: see below SOCIAL HISTORY: see below DDx: Pneumonia, influenza, PE, aspiration, pleural effusion, congestive heart failure among others. PHYSICAL EXAM: Vital signs reviewed. General: Chronically ill-appearing, obese 39-year-old female in no significant distress. HEENT: No scleral icterus, PERRLA, neck supple. Atraumatic. Cardiovascular: Regular rate and rhythm, no extra sounds. Pulmonary: Clear to auscultation bilaterally, normal work of breathing. Abdomen: Soft, nontender, nondistended, positive bowel sounds. Musculoskeletal: Atraumatic, no peripheral edema. Neurologic: Patient awake alert and oriented x 3, speech is clear Skin: Warm, dry, no rash EMERGENCY DEPARTMENT COURSE/MDM: This patient was evaluated and appeared to be in no significant distress. She was resting comfortably on nasal cannula oxygen. Laboratory work was obtained and reveals a normal lactate and procalcitonin. Chest x-ray was performed and reveals bilateral pulmonary infiltrates. CT imaging of the chest was performed due to the patient's body habitus and poor positioning, there is evidence of multifocal infiltrates concerning for aspiration. IV cefepime and Flagyl were initiated. Patient's case was discussed with Dr. Rincon of the hospitalist service who has agreed to evaluate the patient for admission and further management. MONITORING: An order for cardiac monitoring was placed and the patient is noted to be in a sinus tachycardia at 108 beats per minute. RADIOLOGY: Chest x-ray to my interpretation reveals bilateral lower pulmonary infiltrates. Otherwise defer to radiology's over read. CT imaging of the chest: IMPRESSION: Multifocal infiltrates most concerning for pneumonia. Appearance is nonspecific and could be on the basis of aspiration. No pleural effusion is identified. Follow-up until resolution recommended to exclude underlying mass. EKG: To my interpretation reveals normal sinus rhythm at 94 bpm. QTc of 467. Normal ST segments. No PVC, no PAC. 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 Lumbar back pain Chronic reflux esophagitis (Acute) Severe intellectual disabilities (Acute) Urinary incontinence without sensory awareness (Acute) Complex partial seizure (Chronic) Depression with anxiety (Chronic) Dyslipidemia (Chronic) Medical History Pneumonia due to 2019-nCoV Calculus of kidney Surgical History History of dental surgery History of facial surgery Family History Other Adopted Social History Smoking Status: Never smoker Second Hand Exposure: No; Do You Dip or Chew Tobacco: No; Hx Alcohol Use: No Hx Substance Use: No Communication Ability: Unable Visual Impairment: No Limitations Hearing Ability: Normal marital status: Single Current Living Situation: Family current occupational status: disabled How many Children do You have: 0 Feels Safe at Home: Yes Childhood Exposure to Second-Hand Smoke: No Diet: regular Dental Care, Regularly: Yes Physical Activity Frequency: Daily Seatbelt Use: always Sunscreen Use: Yes Assistive Devices: Wheelchair Allergies Allergies Allergy/AdvReac Type Severity Reaction Status Date / Time carbamazepine Allergy Unknown unknown Verified 07/01/24 19:38 amoxicillin AdvReac Intermediate vomiting Verified 07/01/24 19:38 clavulanic acid AdvReac Intermediate vomiting Verified 07/01/24 19:38 lacosamide AdvReac Intermediate nausea Verified 07/01/24 19:38 Home Meds Home Medications Medication Instructions Recorded Confirmed triamcinolone acetonide 0.1 % 1 appln topical BID PRN rash #1 g 06/23/19 07/01/24 topical cream baclofen 10 mg tablet 10 mg PO BID 07/01/24 07/01/24 montelukast 10 mg tablet 10 mg PO QAM 07/01/24 07/01/24 Previous Rx's Medication Instructions Recorded diclofenac sodium 1 % topical gel 2 g topical QID #100 grams 08/25/21 clotrimazole 1 % topical cream 1 applic topical BID 4 weeks #30 11/03/21 grams diaper,brief,adult,disposable #162 ea 02/14/22 (Briefs, Adult-Extra Large) lorazepam 1 mg tablet 0.5 mg (1/2 x 1 mg) PO QID PRN 03/27/22 Anxiety 30 days #30 tabs clonidine HCl 0.1 mg tablet 0.05 mg (1/2 x 0.1 mg) PO BID #90 04/23/23 tabs olanzapine 10 mg tablet 10 mg PO QAM #90 tabs 05/10/23 olanzapine 20 mg tablet 20 mg PO QPM #90 tabs 05/10/23 ondansetron 8 mg disintegrating 8 mg PO Q6H PRN nausea and 07/13/23 tablet vomiting #30 tabs naltrexone 50 mg tablet 100 mg (2 x 50 mg) PO QAM 90 days 08/13/23 #180 tabs lactulose 10 gram/15 mL oral 20 g (30 mL) PO BID PRN 10/25/23 solution Constipation #5,676 mL miscellaneous medical supply #1 ea 11/03/23 Wheeled Walker #1 ea 12/14/23 levetiracetam 1,000 mg tablet 1,000 mg PO BID 90 days #180 tabs 02/14/24 levetiracetam 500 mg tablet 500 mg PO HS 90 days #90 tabs 02/14/24 fluticasone propionate 50 2 spray intranasal DAILY PRN 03/13/24 mcg/actuation nasal Congestion #16 grams spray,suspension famotidine 40 mg tablet 40 mg PO PM #90 tabs 05/05/24 omeprazole 40 mg capsule,delayed 40 mg PO BID #180 caps 05/05/24 release lamotrigine 200 mg tablet 400 mg (2 x 200 mg) PO BID #360 05/06/24 tabs fluoxetine 20 mg/5 mL (4 mg/mL) 40 mg (10 mL) PO DAILY 30 days 06/02/24 oral solution #300 mL Wheelchair (Manual) #1 ea 06/11/24 Results & Data (ED) Vital Signs Vital Signs - 24 hr 07/01/24 15:26 07/01/24 15:26 07/01/24 15:26 Temperature 37 C Temperature Source Oral Pulse Rate 108 H Pulse Rate [Apical] Pulse Rate from SpO2 Sensor Pulse Rhythm Regular Pulse Rhythm [Apical] Pulse Strength Normal Pulse Strength [Apical] Respiratory Rate 28 H Respiratory Effort / Characteristics Spontaneous Labored Spontaneous Labored Respiratory Depth Shallow Respiratory Pattern Tachypnea Tachypnea Blood Pressure 121/77 Blood Pressure [Left Arm] Blood Pressure Mean 91 Blood Pressure Mean [Left Arm] Blood Pressure Position Sitting Pulse Oximetry 88 L Oxygen Delivery Method Room Air Room Air Room Air Oxygen Flow Rate Sepsis Recent Fever Within 48 Hours No Sepsis New/Unexplained Change in Mental Status No Sepsis Action Taken by Nursing Physician Notified 07/01/24 15:26 07/01/24 16:25 07/01/24 17:14 Temperature Temperature Source Pulse Rate 95 H 99 H Pulse Rate [Apical] 108 H Pulse Rate from SpO2 Sensor Pulse Rhythm Regular Pulse Rhythm [Apical] Regular Pulse Strength Pulse Strength [Apical] Normal Respiratory Rate 28 H 28 H Respiratory Effort / Characteristics Spontaneous Labored Respiratory Depth Shallow Respiratory Pattern Tachypnea Blood Pressure Blood Pressure [Left Arm] 121/77 Blood Pressure Mean Blood Pressure Mean [Left Arm] 91 Blood Pressure Position Pulse Oximetry 88 L 95 Oxygen Delivery Method Room Air Nasal Cannula Oxygen Flow Rate 2 Sepsis Recent Fever Within 48 Hours Sepsis New/Unexplained Change in Mental Status Sepsis Action Taken by Nursing 07/01/24 17:15 Temperature Temperature Source Pulse Rate 100 H Pulse Rate [Apical] Pulse Rate from SpO2 Sensor 100 H Pulse Rhythm Pulse Rhythm [Apical] Pulse Strength Pulse Strength [Apical] Respiratory Rate 21 Respiratory Effort / Characteristics Respiratory Depth Respiratory Pattern Blood Pressure 122/80 Blood Pressure [Left Arm] Blood Pressure Mean 94 Blood Pressure Mean [Left Arm] Blood Pressure Position Pulse Oximetry 93 Oxygen Delivery Method Nasal Cannula Oxygen Flow Rate 2 Sepsis Recent Fever Within 48 Hours Sepsis New/Unexplained Change in Mental Status Sepsis Action Taken by Alf Medications Current Medication List: was personally reviewed by me Laboratory Data Attestation: I reviewed the patient's lab results. 07/02/24 05:30 07/02/24 05:30 Lab Results 07/01/24 07/01/24 Range/Units 17:09 18:28 WBC 8.97 (4.8-10.8) K/ul RBC 4.34 (4.20-5.40) M/uL Hgb 13.1 (12.0-16.0) g/dl Hct 40.3 (37.0-47.0) % MCV 92.9 (80.0-100.0) fL MCH 30.2 (25.0-34.0) pg MCHC 32.5 (32.0-36.0) g/dL RDW Std Deviation 41.9 (36.4-46.3) fL RDW Coeff of Pawel 12.2 (11.5-14.5) % Plt Count 258 (130-400) K/uL MPV 10.1 (9.4-12.4) fL Immature Gran % (Auto) 2.0 % Neut % (Auto) 69.3 % Lymph % (Auto) 17.3 % [place] % (Auto) 10.7 % Eos % (Auto) 0.1 % Baso % (Auto) 0.6 % Neut # (Auto) 6.22 (1.40-6.50) K/uL Lymph # (Auto) 1.55 (1.20-3.40) K/uL [place] # (Auto) 0.96 H (0.11-0.59) K/uL Eos # (Auto) 0.01 (0.00-0.50) K/uL Baso # (Auto) 0.05 (0.00-0.20) K/uL Immature Gran # (Auto) 0.18 (0.01-0.20) K/uL Absolute Nucleated RBC 0.05 (0.00-0.12) K/uL Nucleated RBC % (auto) 0.6 % Polychromasia 1+ PT 10.7 (9.0-12.0) Seconds INR 1.0 (0.9-1.1) APTT 29 (21-31) Seconds PTT Ratio 1.1 Sodium 143 (136-145) mmol/L Potassium 3.4 L (3.5-5.1) mmol/L Chloride 100 (98-107) mmol/L Carbon Dioxide 31 (21-32) mmol/L Anion Gap 12 H (3-11) BUN 5 L (6-23) mg/dl Creatinine 0.56 L (0.6-1.2) mg/dl Est Cr Clr Drug Dosing 144.3 ml/min eGFR 119.73 BUN/Creatinine Ratio 8.9 L (10-20) Glucose 92 (70-99(Fasting)) mg/dl Lactate 1.2 (0.4-2.0) mmol/L Calcium 8.7 (8.6-10.3) mg/dl Magnesium 2.0 (1.7-2.4) mg/dl Total Bilirubin 0.3 (0.2-1.0) mg/dl AST 22 (13-39) U/L ALT 19 (7-52) U/L Alkaline Phosphatase 111 H (34-104) U/L Troponin I High Sens 4.6 (0-14) pg/ml Total Protein 7.1 (6.0-8.3) gm/dl Albumin 3.3 L (3.4-5.0) gm/dl Globulin 3.8 (2.5-4.0) gm/dl Albumin/Globulin Ratio 0.9 (0.9-2) Procalcitonin 0.18 (0-0.5) ng/ml Administered Medications Baclofen (Baclofen 10 Mg Tab) 10 mg PO BID PEREZ Stop: 07/31/24 20:59 Last Admin: 07/02/24 08:15 Dose: 10 mg Documented By: Admin: 07/01/24 22:23 Dose: 10 mg Documented By: NANO Clonidine HCl (Clonidine Hcl 0.1 Mg Tab) 0.05 mg PO BID PEREZ Stop: 07/31/24 20:59 Last Admin: 07/02/24 08:12 Dose: 0.05 mg Documented By: Admin: 07/01/24 22:23 Dose: 0.05 mg Documented By: NANO Fluoxetine HCl (Fluoxetine Hcl 20 Mg/5 Ml 120ml Btl) 40 mg PO DAILY PEREZ Stop: 08/01/24 08:59 Last Admin: 07/02/24 08:05 Dose: 40 mg Documented By: SIOBHAN Heparin Sodium (Porcine) (Heparin Sod 5,000 Unit/0.5 Ml Vial) 7,500 units SQ Q12 PEREZ Stop: 07/31/24 20:59 Last Admin: 07/02/24 08:06 Dose: 7,500 units Documented By: Admin: 07/01/24 22:25 Dose: Not Given Documented By: NANO Methylprednisolone 40 mg/ (Syringe) 0.64 mls @ 1.5 mls/min IV Q12H PEREZ Stop: 08/01/24 08:59 Last Admin: 07/02/24 08:05 Dose: 1.5 mls/min Documented By: SIOBHAN Cefepime HCl (Maxipime 2000mg) 2,000 mg in 20 mls @ 5 mls/min IV Q8H PEREZ; Protocol Stop: 07/09/24 01:59 Last Admin: 07/02/24 10:39 Dose: 5 mls/min Documented By: Admin: 07/02/24 02:03 Dose: 5 mls/min Documented By: NANO Metronidazole (Flagyl) 500 mg in 100 mls @ 100 mls/hr IV Q8H PEREZ; Protocol Stop: 07/09/24 03:59 Last Infusion: 07/02/24 05:39 Dose: Infused Documented By: Admin: 07/02/24 04:25 Dose: 100 mls/hr Documented By: NANO Lamotrigine (Lamotrigine 25 Mg Tab) 25 mg PO QPM [facility]; Protocol Stop: 07/31/24 20:59 Last Admin: 07/01/24 22:24 Dose: 25 mg Documented By: NANO Lamotrigine (Lamotrigine 100 Mg Tab) 400 mg PO BID [facility]; Protocol Stop: 07/31/24 20:59 Last Admin: 07/02/24 08:05 Dose: 400 mg Documented By: Admin: 07/01/24 22:25 Dose: 400 mg Documented By: NANO Levetiracetam (Levetiracetam Oral Soln 100mg/Ml) 1,000 mg PO QAM [facility] Stop: 08/01/24 08:59 Last Admin: 07/02/24 08:05 Dose: 1,000 mg Documented By: SIOBHAN Levetiracetam (Levetiracetam Oral Soln 100mg/Ml) 1,500 mg PO HS [facility] Stop: 07/31/24 22:29 Last Admin: 07/01/24 22:35 Dose: 1,500 mg Documented By: NANO Montelukast Sodium (Montelukast Sodium 10 Mg Tablet) 10 mg PO DAILY PEREZ Stop: 08/01/24 08:59 Last Admin: 07/02/24 08:06 Dose: 10 mg Documented By: SIOBHAN Naltrexone HCl (Naltrexone Hcl 50 Mg Tab) 100 mg PO QAM PEREZ Stop: 08/01/24 08:59 Last Admin: 07/02/24 08:04 Dose: 100 mg Documented By: SIOBHAN Olanzapine (Olanzapine 20 Mg Tablet) 20 mg PO QPM PEREZ Stop: 07/31/24 20:59 Last Admin: 07/01/24 22:24 Dose: 20 mg Documented By: NANO Olanzapine (Olanzapine 10 Mg Tab) 10 mg PO QAM PEREZ Stop: 08/01/24 08:59 Last Admin: 07/02/24 08:04 Dose: 10 mg Documented By: SIOBHAN Oseltamivir Phosphate (Oseltamivir Phosphate Susp 75 Mg/12.5 Ml Udp) 75 mg PO BID PEREZ Stop: 07/06/24 20:59 Last Admin: 07/02/24 10:39 Dose: 75 mg Documented By: SIOBHAN Discontinued Medications Cefepime HCl (Maxipime 2000mg) 2,000 mg in 20 mls @ 5 mls/min IV NOW STA; Protocol Stop: 07/01/24 18:04 Last Admin: 07/01/24 18:56 Dose: 5 mls/min Documented By: SRL Metronidazole (Flagyl) 500 mg in 100 mls @ 100 mls/hr IV NOW STA; Protocol Stop: 07/01/24 19:00 Last Infusion: 07/01/24 19:56 Dose: Infused Documented By: Admin: 07/01/24 18:56 Dose: 100 mls/hr Documented By: SRL Potassium Chloride/Sodium Chloride (Normal Saline W/20 Meq Kcl) 20 meq in 1,000 mls @ 80 mls/hr IV .[id number] PEREZ Stop: 07/02/24 07:59 Last Infusion: 07/02/24 09:36 Dose: Infused Documented By: Admin: 07/01/24 20:56 Dose: 80 mls/hr Documented By: CLAIRE Levetiracetam (Levetiracetam 500 Mg Tab) 1,000 mg PO BID PEREZ Stop: 07/31/24 20:59 Last Admin: 07/01/24 22:49 Dose: Not Given Documented By: NANO Levetiracetam (Levetiracetam 500 Mg Tab) 500 mg PO HS PEREZ Stop: 07/31/24 20:59 Last Admin: 07/01/24 22:49 Dose: Not Given Documented By: NANO Methylprednisolone (Methylprednisolone 125 Mg/2 Ml Vial) 60 mg IV NOW STA Stop: 07/01/24 19:17 Last Admin: 07/01/24 20:57 Dose: 60 mg Documented By: CLAIRE Oseltamivir Phosphate (Oseltamivir Phosphate 75 Mg Cap) 75 mg PO NOW STA Stop: 07/01/24 19:28 Last Admin: 07/01/24 20:56 Dose: 75 mg Documented By: CLAIRE Imaging Data Radiologist's Impression: Chest X-Ray 07/01/24 16:25 EXAM: Radiograph of the Chest 1 View INDICATION: Dyspnea. TECHNIQUE: Frontal view of the chest. COMPARISON: No relevant prior studies available. FINDINGS: Lungs and pleural spaces: There is diffuse engorgement of the pulmonary vasculature. There is overlying airspace consolidation in both lungs left greater than right relatively sparing the apices and right base. Probable small left pleural effusion. No pneumothorax. Heart: Shape and configuration within normal limits allowing for technique. Mediastinum: Normal contour. Bones/joints: Scoliotic spine. No acute osseous abnormality. Soft tissues: No abnormality noted. No radiopaque foreign body noted. Upper abdomen: No abnormality noted. IMPRESSION: Bilateral pulmonary abnormalities most concerning for CHF or pneumonia. ACT 112: Negative or not required by law. Electronically signed by Anushka Castro 07-01-2024 4:[address] 07/01/24 16:49 EXAM: CT Chest Without Intravenous Contrast INDICATION: Possible aspiration. Pulmonary infiltrates. TECHNIQUE: Axial computed tomography images of the chest without intravenous contrast. Sagittal and coronal reformatted images were created and reviewed. This CT exam was performed using one or more of the following dose reduction techniques: automated exposure control, adjustment of the mA and/or kV according to patient size, and/or use of iterative reconstruction technique. COMPARISON: Chest x-ray the same day. FINDINGS: Limitations: None. Lungs and pleural spaces: There are multifocal infiltrates most notable in the right upper lobe. Infiltrate in the left posterior costophrenic sulcus is more confluent measuring approximately 1.9 x 1.5 x 3.5 cm. There is an 8 mm nodule in the right lateral costophrenic sulcus. No pleural effusion or pneumothorax. Heart: No abnormality noted. Thyroid: No abnormality noted. Bones/joints: No acute changes. Soft tissues: No significant abnormality noted. Vasculature: No aneurysm. Lymph nodes: Prominent lateral aortic and paratracheal nodes present. No pathologically enlarged nodes. IMPRESSION: Multifocal infiltrates most concerning for pneumonia. Appearance is nonspecific and could be on the basis of aspiration. No pleural effusion is identified. Follow-up until resolution recommended to exclude underlying mass. ACT 112: Negative or not required by law. Electronically signed by Anushka Castro 07-01-2024 6:11 PM Discharge Plan Visit Data Chief Complaint: Shortness of Breath/Dyspnea Stated Complaint: SOB ED Provider: Kathi Arriaza Discharge Problem: Aspiration pneumonia Patient Disposition: Admitted As Inpatient Discharge Instructions Interventions: ED Discharge Assessment Last Done: 07/01/24 20:47 Discharge Problem: Aspiration pneumonia Qualifiers: Aspiration pneumonia type: due to vomit Laterality: bilateral Lung location: u nspecified part of lung Qualified Code(s): J69.0 - Pneumonitis due to inhalation of food and vomit
[2024-07-02] MEDS: LORazepam 0.5 MG TAB PO PRN (17:33)
--- NOTE | 2024-07-02 23:03 | Electrocardiogram Report ---
Test Reason : Blood Pressure : */* mmHG Vent. Rate : 94 BPM Atrial Rate : 94 BPM P-R Int : 156 ms QRS Dur : 74 ms QT Int : 374 ms P-R-T Axes : 39 48 10 degrees QTcB Int : 467 ms Normal sinus rhythm Normal ECG When compared with ECG of 30-Jun-2022 11:45, No significant change was found Confirmed by Adan Sam ([id number]) on 07/02/2024 11:03:21 PM Referred By: REFERRED SELF Confirmed By: Adan Sam
[2024-07-03 06:33] LABS: Basophils # (auto) 0.04 K/uL (0.00-0.20); Basophils % (auto) 0.3 %; Hematocrit (blood only) 40.1 % (37.0-47.0); Hemoglobin 13.2 g/dl (12.0-16.0); Immature Granulocytes # (auto) 0.53 K/uL (0.01-0.20); Immature Granulocytes % (auto) 4.6 %; Lymphocytes # (auto) 1.33 K/uL (1.20-3.40); Lymphocytes % (auto) 11.5 %; Mean Corpuscular Hemoglobin 30.8 pg (25.0-34.0); Mean Corpuscular Hgb Conc 32.9 g/dL (32.0-36.0); Mean Corpuscular Volume 93.7 fL (80.0-100.0); Mean Platelet Volume 9.8 fL (9.4-12.4); Monocytes # (auto) 0.81 K/uL (0.11-0.59); Neutrophils # (auto) 8.82 K/uL (1.40-6.50); Neutrophils % (auto) 76.6 %; Nucleated RBC # (auto) 0.02 K/uL (0.00-0.12); Nucleated RBC % (auto) 0.2 %; Platelet Count 258 K/uL (130-400); RDW Coefficient of Variation 12.5 % (11.5-14.5); RDW Standard Deviation 42.6 fL (36.4-46.3); Red Blood Count 4.28 M/uL (4.20-5.40); White Blood Count 11.53 K/ul (4.8-10.8)
[2024-07-03 06:52] LABS: Albumin Level 3.1 gm/dl (3.4-5.0); BUN Creatinine Ratio 21.9 (10-20); Calcium 8.3 mg/dl (8.6-10.3); Creatinine Clr Calc Pharmacy 119.9 ml/min; Magnesium 2.2 mg/dl (1.7-2.4); Potassium 4.1 mmol/L (3.5-5.1)
--- NOTE | 2024-07-03 09:00 | Hospitalist Progress Note ---
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 She underwent evaluation in the emergency department which included test positive for influenza A H3 virus, chest x-ray suggestive of bilateral pneumonia, likely associated with aspiration from episodes of nausea and vomiting. Mother reports that nausea and vomiting initially began 4 to 5 days ago, and had stopped about 2 days ago, but she then started mildly more progressive issues with shortness of breath #Influenza A H3 viral infection- - Give Solu-Medrol 60 mg IV now, and then 40 mg IV every 12 hours - Tamiflu 75 mg p.o. twice daily - DuoNebs every 2 hours as needed - Droplet precautions #Aspiration pneumonia- - Likely secondary to episodes of nausea and vomiting that began about 5 days ago and completed about 2 days ago. - MRSA swab - Continue cefepime 2 g IV every 12 hours, and Flagyl 5 mg IV every 8 hours begun in the ED - MRSA neg - DuoNebs every 2 hours as needed - guaifenesin liquid q4h scheduled - ICS as pt tolerates #Acute respiratory failure with hypoxia/influenza A H3 viral in fection/aspiration pneumonia- - Nasal cannula oxygen, titrate to keep pulse ox 92-94% - wean oxygen as tolerated #Severe intellectual disabilities/personality behavioral disorders/depression with anxiety/seizure disorder- - Patient doing reasonably well this point - Continue usual medications of fluoxetine, lamotrigine, Keppra, lorazepam, olanzapine and baclofen 07/02: pt's mom at bedside Admission and Anticipated Discharge Date Admission Date: July 01, 2024 Subjective pt does become hypoxic off of oxygen at night pt also not always keeping oxygen on due to her I.D. Review of Systems Review of Systems: Unable to obtain ROS due to I.D. Physical Exam Physical Exam: Gen: no acute distress, calm and in bed HEENT: NC/AT, MMM Lungs: coarse breath sounds but improved compared to yesterday CVS: s1s2 nl, RRR Abd: soft, NT, nl bowel sounds Ext: no edema Results & Data Results & Data Vital Signs (Past 12 Hours) Vital Signs Temp Pulse Pulse Resp BP BP Pulse Ox 07/03/24 07:43 36.6 C 82 16 139/95 96 07/03/24 07:03 87 07/03/24 04:44 36.8 C 81 24 129/76 87 L 07/03/24 00:27 07/02/24 23:58 36.8 C 80 18 120/84 94 07/02/24 22:00 95 H O2 Del Method O2 Flow Rate 07/03/24 07:43 Room Air 07/03/24 07:03 07/03/24 04:44 Nasal Cannula 5 07/03/24 00:27 Room Air, Nasal Cannula 5 07/02/24 23:58 Nasal Cannula 5.0 07/02/24 22:00 PG Care Time/CCT Total # of Minutes Spent Total Time Spent with Patient: Total time spent is greater than 50% in coordination of care (as documented) at patient's floor/unit and/or counseling patient: Coding Level of Care Code 87316 SUB INP/OBS CARE 3/50MIN Diagnoses Influenza A H1N1 infection J10.1 Aspiration pneumonia J69.0 Severe intellectual disabilities F72 Complex partial seizure G40.209
[2024-07-03] MEDS: guaiFENesin 200 MG TAB PO SCH (14:40)
[2024-07-04 07:04] LABS: Mean Corpuscular Hemoglobin 30.2 pg (25.0-34.0); Mean Corpuscular Hgb Conc 32.5 g/dL (32.0-36.0); Mean Platelet Volume 9.8 fL (9.4-12.4); Platelet Count 289 K/uL (130-400); RDW Coefficient of Variation 12.7 % (11.5-14.5); RDW Standard Deviation 42.9 fL (36.4-46.3); White Blood Count 9.28 K/ul (4.8-10.8)
[2024-07-04 07:33] LABS: BUN Creatinine Ratio 27.7 (10-20); Calcium 8.5 mg/dl (8.6-10.3); Creatinine Clr Calc Pharmacy 118.7 ml/min; Magnesium 2.1 mg/dl (1.7-2.4); Phosphorus 4.2 mg/dl (2.5-4.9); Potassium 4.4 mmol/L (3.5-5.1)
[2024-07-04 07:36] LABS: Basophils # (auto) 0.07 K/uL (0.00-0.20); Basophils % (auto) 0.8 %; Immature Granulocytes # (auto) 0.68 K/uL (0.01-0.20); Immature Granulocytes % (auto) 7.3 %; Lymphocytes # (auto) 1.45 K/uL (1.20-3.40); Lymphocytes % (auto) 15.6 %; Monocytes # (auto) 0.72 K/uL (0.11-0.59); Monocytes % (auto) 7.8 %; Neutrophils # (auto) 6.36 K/uL (1.40-6.50); Neutrophils % (auto) 68.5 %; Polychromasia 1+
[2024-07-04 11:44] VITALS: TEMP 98
[2024-07-04 16:16] VITALS: O2SAT 94
--- NOTE | 2024-07-04 16:24 | Discharge Summary ---
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 She underwent evaluation in the emergency department which included test positive for influenza A H3 virus, chest x-ray suggestive of bilateral pneumonia, likely associated with aspiration from episodes of nausea and vomiting. Mother reports that nausea and vomiting initially began 4 to 5 days ago, and had stopped about 2 days ago, but she then started mildly more progressive issues with shortness of breath #Influenza A H3 viral infection- - Give Solu-Medrol 60 mg IV now, and then 40 mg IV every 12 hours - Tamiflu 75 mg p.o. twice daily complete 5 day course - Droplet precautions #Aspiration pneumonia- - Likely secondary to episodes of nausea and vomiting that began about 5 days ago and completed about 2 days ago. - MRSA swab - Continue cefepime 2 g IV every 12 hours, and Flagyl 5 mg IV every 8 hours begun in the ED - convered to Cefdinir to complete the course. - MRSA neg - guaifenesin liquid q4h scheduled - ICS as pt tolerates #Acute respiratory failure with hypoxia/influenza A H3 viral infection/aspiration pneumonia- - weaned oxygen. Pt not requiring oxygen at rest, however, does require 2L with ambulation - pt will need reassessment as outpatient after acute illness resolve #Severe intellectual disabilities/personality behavioral disorders/depression with anxiety/seizure disorder- - Patient doing reasonably well this point - Continue usual medications of fluoxetine, lamotrigine, Keppra, lorazepam, olanzapine and baclofen - PT / OT eval, cleared for pt to go home 07/02: pt's mom at bedside 07/04: pt's mom at bedside Admission HPI Per Admitting Provider The patient is a 39-year-old female medical history including chronic reflux esophagitis, severe intellectual disabilities, urinary incontinence, complex partial seizure, depression with anxiety, dyslipidemia and 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 She underwent evaluation in the emergency department which included test positive for influenza A H3 virus, chest x-ray suggestive of bilateral pneumonia, likely associated with aspiration from episodes of nausea and vomiting. Mother reports that nausea and vomiting initially began 4 to 5 days ago, and had stopped about 2 days ago, but she then started mildly more progressive issues with shortness of breath. Discharge Exam Gen: no acute distress, calm and in bed HEENT: NC/AT, MMM Lungs: coarse breath sounds but improved compared to yesterday CVS: s1s2 nl, RRR Abd: soft, NT, nl bowel sounds Ext: no edema Discharge Plan Discharge Items Patient Disposition: Home - Self-Care Reason For Visit: ACUTE RESP FAILURE WITH HYPOXIA, ASP PNEUM, INFLUE Discharge Diagnosis: Influenza, Acute respiratory failure with hypoxia, aspiration pna Activity: Resume your previous activity Non-emergency contact: Primary Care Provider Call non-emergency contact if: you have any medication questions and your symptoms worsen Follow-up/Referrals: Martha Branham MD [Primary Care Provider] - Diet: Regular Addtl Attending Provider Instructions: 1. complete Tamiflu and Cefdinir as prescribed 2. Please follow up with primary care doctor within 7 to 10 days after discharge Pending Studies at Discharge: No Stand-Alone Forms: [facility], Smoking Cessation Medications and DC Order Prescriptions: New cefdinir 300 mg Capsule 300 mg PO BID 4 Days Qty: 8 0RF oseltamivir [Tamiflu] 6 mg/mL Suspension For Reconstitution 75 mg PO BID Qty: 62.5 0RF guaifenesin 200 mg Tablet 200 mg PO Q4H 10 Days Qty: 60 0RF montelukast 10 mg Tablet 10 mg PO DAILY 30 Days Qty: 30 0RF Continued (DME) Briefs, Adult-Extra Large Misc See Dose Instructions .ROUTE .MEDSUPPLY Qty: 162 12RF Dose Instruction: As directed Rx Instructions: please dispense large adult pull ups. 4-5 daily. lorazepam 1 mg tablet 0.5 mg PO QID PRN (Reason: Anxiety) 30 Days Qty: 30 1RF clonidine HCl 0.1 mg tablet 0.05 mg PO BID Qty: 90 1RF ondansetron 8 mg tablet,disintegrating 8 mg PO Q6H PRN (Reason: nausea and vomiting) Qty: 30 1RF naltrexone 50 mg tablet 100 mg PO QAM 90 Days Qty: 180 0RF lactulose 10 gram/15 mL solution 20 g PO BID PRN (Reason: Constipation) Qty: 5676 1RF (DME) Wheeled Walker [facility] [place] See Rx Instructions .Route Qty: 1 0RF Rx Instructions: Walker needs to have 4 wheels, brakes and a seat. levetiracetam 500 mg tablet 500 mg PO HS 90 Days Qty: 90 3RF levetiracetam 1,000 mg tablet 1,000 mg PO BID 90 Days Qty: 180 3RF famotidine 40 mg tablet 40 mg PO PM Qty: 90 1RF omeprazole 40 mg capsule,delayed release(DR/EC) 40 mg PO BID Qty: 180 1RF lamotrigine 200 mg tablet 400 mg PO BID Qty: 360 0RF fluoxetine 20 mg/5 mL (4 mg/mL) solution 40 mg PO DAILY 30 Days Qty: 300 11RF (DME) Wheelchair (Manual) Device See Rx Instructions .Route Qty: 1 0RF Rx Instructions: As directed clotrimazole 1 % cream 1 applic topical BID 28 Days Qty: 30 1RF olanzapine 10 mg tablet 10 mg PO QAM Qty: 90 3RF olanzapine 20 mg tablet 20 mg PO QPM Qty: 90 3RF diclofenac sodium 1 % gel 2 g topical QID Qty: 100 2RF Rx Instructions: apply to single elbow, wrist or hand; for hand includes palm/fingers/back of hand fluticasone propionate 50 mcg/actuation spray,suspension 2 spray INTRANASAL DAILY PRN (Reason: Congestion) Qty: 16 1RF triamcinolone acetonide 0.1 % cream 1 appln topical BID PRN (Reason: rash) Qty: 1 (DME) miscellaneous medical supply [facility] [place] See Rx Instructions .ROUTE .MEDSUPPLY Qty: 1 0RF Rx Instructions: Bath chair Lift M54.5 baclofen 10 mg tablet 10 mg PO BID montelukast 10 mg tablet 10 mg PO QAM Discharge Orders: Discharge Order (Routine); Ordered 07/04/24 Ordered By: Sherri Lange Admission Data Admit Date/Time: 07/01/24 19:27 Attending Provider: Sherri Lange Admit Provider: Zafar White Primary Care Provider: Martha Branham Other Providers: Zafar White Hospital Stay Data Consultations 07/01/24 20:30 ED Decision to Admit Stat Diagnostic Imagining Performed 07/01/24 16:49 CT chest diagnostic wo con Stat Discharge Instructions Given to Patient (Per Discharging Provider) 1. complete Tamiflu and Cefdinir as prescribed 2. Please follow up with primary care doctor within 7 to 10 days after discharge Total Time Total Time Spent Total Time Spent (In Minutes): 50 Coding Level of Care Code 62818 INP/OBS DISCH >30 MIN Diagnoses Influenza A H1N1 infection J10.1 Aspiration pneumonia J69.0 Severe intellectual disabilities F72 Complex partial seizure G40.209
[2024-07-04 17:35] VITALS: BP 129/76; PULSE 82; RESP 18
[2024-07-04] MEDS ORDERED: CEFDINIR 300 MG CAP PO SCH (21:00)
== END 2024-07-04 18:43 | disposition home or self-care (01) | DRG 177 ==
LOC: ED 15:29 → EDINP 19:27 → SUATTDRO 19:27 → 2S 20:47